=== PATIENT | male | born 1955 | race Caucasian/White ===

== ENCOUNTER 2021-01-14 15:07 | Outpatient (REF) | payer OTHER, SELFPAY ==
--- NOTE | ~2021-01-14 | XR_ITS ---
EXAMINATION: XR KNEE, RIGHT CLINICAL INFORMATION: Evaluate for degenerative disc changes. COMPARISON: None. TECHNIQUE: 4 views of the right knee. FINDINGS: There is minimal loss of medial and patellofemoral femoral compartment joint space with tiny spurring along medial tibial plateau. No abnormal joint effusion seen. No bony erosive changes. No fracture noted. XR/XR knee RT 4V IMPRESSION: Early mild degenerative changes in the patellofemoral and medial compartment.
== END 2021-01-14 15:08 | disposition home or self-care (01) ==
LOC: HO.XRAY 15:07
PROVIDERS: Visit Provider Physical Medicine & Rehabilitation
DX: M25.561 Pain in right knee (principal)
CPT/HCPCS: 73564

== ENCOUNTER 2021-07-18 18:05 | Emergency (ER) | payer OTHER, SELFPAY ==
--- NOTE | ~2021-07-18 | US_ITS ---
EXAMINATION: US VENOUS ULTRASOUND WITH DOPPLER LOWER EXTREMITY, RIGHT CLINICAL INFORMATION: This is a 65-year-old male with right hip pain. Possible deep vein thrombosis. COMPARISON: None TECHNIQUE: Ultrasound of the deep veins is performed from the hip to the calf with compression sonography and color and pulse Doppler assessment. Spectral analysis with color-flow imaging is performed. FINDINGS: There is normal venous compression and respiratory variation and augmented flow. The visualized common femoral vein, superficial femoral vein, profunda femoral vein, popliteal vein, and the trifurcation region shows no evidence of deep venous thrombosis. There is no significant popliteal fossa cyst. If the patient's symptoms persist, followup ultrasound in 5 days 7 days might be of value to exclude proximal propagation from a non-visualized calf vein. US/US venous duplex LE RT IMPRESSION: No DVT demonstrated in the right lower extremity.
[2021-07-18 18:26] VITALS: BP 115/68; PULSE 75; RESP 18; TEMP 37; O2SAT 95; BMI 27.3
--- NOTE | 2021-07-18 22:08 | ED.LOWEXIN ---
HPI - Extremity Injury (Lower) General Chief Complaint: Extremity Injury, Lower Stated Complaint: r/o bloodclot Time Seen by Provider: 07/18/21 21:50 Source: patient Mode of arrival: ambulatory Limitations: no limitations History of Present Illness HPI Narrative: 65-year-old male who presents emergency department for evaluation of right lower extremity pain, swelling and redness. The patient states that he has a history joint swelling in his hands and knees. He states that he was taking Celebrex for this condition but had to stop the Celebrex for 1 week since he was diagnosed with anemia. States that he is being evaluated by the [facility] for possible autoimmune disease as the cause of his anemia, he states that the anemia is not secondary to iron deficiency. Patient states that over the past 4 days he has developed pain in the pretibial region of his right leg. He has noticed redness, tenderness and swelling of his right leg. The symptoms are and the distal 3rd of the right leg, he denied any swelling of the calf. He states that it is painful to walk. Has no pain or swelling of his foot or toes. The patient denied fever, chills, chest pain, shortness of breath, dyspnea on exertion. He states that he does have fatigue. The patient did have a telemedicine consult with his provider at the [facility] and was advised to go to the emergency department for evaluation of possible blood clot to his leg. 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 Past surgical history: None. Social history: He denies tobacco use. Denies alcohol use. He smokes marijuana daily. Medical History Anemia Arthritis Social History Social History Advance Directives: No Advance Directives Information Provided: No Physical Exam Vital Signs: Vital Signs: Last Vital Signs Temp 98.6 F 07/18/21 18:26 Pulse 75 07/18/21 18:26 Resp 18 07/18/21 18:26 BP 115/68 07/18/21 18:26 Pulse Ox 95 07/18/21 18:26 Body Mass Index 27.3 Const: General: cooperative and no acute distress Orientation/consciousness: oriented to person and oriented to place Limitations: no limitations HENMT: Head: Yes normal to inspection, Yes normocephalic and Yes atraumatic Ears: external ears normal General nose exam: Normal external nose present Face and sinus: Yes normal facial exam Mouth: Normal oral and palatal mucosa present Throat: Yes posterior oropharynx normal Eyes: General: appearance normal, both eyes and all related structures Pupils: Equal, round and reactive pupils present Neck: Neck: Yes normal visual inspection, Yes no lymphadenopathy, Yes trachea midline and Yes supple Chest: Chest palpation & inspection: normal inspection of the chest and normal palpation of entire chest wall Resp: Effort & Inspection: normal respiratory effort and able to speak in complete sentences Auscultation: clear to auscultation bilaterally Cardio: Rate: regular rate Rhythm: regular rhythm Heart sounds: S1 normal heart sound present, S2 normal heart sound present and no murmurs GI: Inspection: Yes normal to inspection Palpation (GI): Soft to palpation, nontender and no guarding Auscultation: normal bowel sounds : General: Yes no CVA tenderness Back/Spine/Pelvis: Back: no CVA tenderness Skin: General skin exam: no rashes or lesions noted Neuro: General: oriented to person and oriented to place Cranial nerves: Yes CN's II-XII intact bilaterally and Yes Equal, round and reactive pupils present Cognition (Neuro): normal cognition Motor exam (neuro): 5/5 motor strength present throughout Extrem: Other: Right lower extremity examination: The patient has a erythema from the ankle extending proximally approximately 15 cm. The erythema spares the foot. This area of erythema is warm to the touch and tender to palpation, he also has tenderness palpation of the ankle no joint effusion. There is no tenderness palpation of the foot. Does have tenderness palpation of the knee with no joint effusion or erythema pain Psych: Appearance: grossly normal Speech and movement: Normal speech and movement present Affect: normal affect Attitude: cooperative Thought process: Normal thought process present Thought content: Normal thought content present Course Course Course Narrative: 65-year-old male who presents emergency department for evaluation of erythema and redness of the right lower extremity from the ankle traveling approximately 10 cm proximally, spares the foot and the knee. This erythema is warm to the touch. The patient has no asymmetry of his cast her thighs. The patient was referred to the emergency department for to rule out DVT therefore an ultrasound of the right lower extremity was ordered. 2303: The patient's Doppler ultrasound revealed no DVT, the patient's presentation is consistent with cellulitis. The patient was treated in the emergency department with Keflex 500 mg orally. He was started on Keflex 500 mg 4 times a day for 7 days. The patient was discharged home. The patient was given verbal and printed instructions prior to discharge. The patient was advised to follow-up with his PCP in 2 days and to return to the emergency department if his symptoms get worse or if he develops any new symptoms that are concerning to him. Discharge Plan Discharge Clinical Impression: Cellulitis of right leg without foot Patient Disposition: Home, Self-Care Instructions: Cellulitis (ED) Additional Instructions: The Doppler ultrasound of your right leg revealed no blood clot. This is reassuring. Sometimes an ultrasound can miss a blood clot from the knee down, if you get increased swelling of your leg or thigh or if you develop chest pain or shortness of breath then you need to return to the emergency department for a repeat ultrasound. The redness and swelling your leg is most likely caused by a skin infection (cellulitis). Keep your leg elevated, apply a heating pad on low for 15 minutes 4 to 6 times a day. This will increase the blood flow to the area and help fight often infection. You received Keflex (cephalexin) 500 mg orally. This is an antibiotic that fight skin infections. Take Keflex 500 mg 4 times a day for 7 days. Restart your Celebrex for your pain. Follow-up with your doctor in 2 days. Please return to the emergency department if your symptoms get worse or if you develop any symptoms that are concerning to you. Try contacting a doctor the comes to [facility] on the list and also try contacting our geriatric social work professor to try to get a doctor to follow up with and help you figure out your insurance issue. Prescriptions: New cephalexin 500 mg capsule 500 mg PO QID 7 Days Qty: 28 RF: 0
[2021-07-18] MEDS: cephALEXin 500 MG CAPSULE PO (23:16)
== END 2021-07-18 23:26 | disposition home or self-care (01) ==
PROVIDERS: Emergency Provider Emergency Medicine Emergency Medical Services
DX: L03.115 Cellulitis of right lower limb (principal); M79.604 Pain in right leg; R60.0 Localized edema; Z79.899 Other long term (current) drug therapy
CPT/HCPCS: 93971; 99283; 99284

== ENCOUNTER 2021-08-10 09:08 | Outpatient (REF) | payer OTHER, SELFPAY ==
--- NOTE | ~2021-08-10 | XR_ITS ---
EXAMINATION: XR HAND, RIGHT CLINICAL INFORMATION: Pain first and second digit COMPARISON: None TECHNIQUE: PA, lateral, and oblique views of the right hand. FINDINGS: Bone alignment is normal. No fracture or dislocation is seen. There are small osteophytes at the first through fourth MCP joints. Joint spaces are otherwise normal. Soft tissues are normal. XR/XR hand RT 2V IMPRESSION: Mild degenerative changes at the MCP joints.
[2021-08-10 09:28] LABS: MANUAL DIFF FLAG NO
[2021-08-10 09:51] LABS: Basophils Percent Auto 0.4 % (0-2); Eosinophils Absolute Auto 0.1 X10*3/uL (0.0-0.4); Hematocrit 36.7 % (42-52); Imm Gran Abs Auto 0.01 X10*3/uL (0.00-0.03); Imm Gran Pct Auto 0.2 % (0.0-0.4); Immature Retic Fraction 4.2 % (2.3-13.4); Lymphocytes Absolute Auto 0.7 X10*3/uL (1.2-4.9); Lymphocytes Percent Auto 15.1 % (20-40); Mean Corpuscular HGB Conc 35.4 g/dl (31.0-36.0); Mean Corpuscular Hemoglobin 31.2 pg (27.0-33.0); Mean Platelet Volume 10.8 fL (9.4-12.4); Monocytes Absolute Auto 0.4 X10*3/uL (0.1-1.2); Monocytes Percent Auto 8.4 % (2-11); Neutrophils Absolute Auto 3.7 X10*3/uL (2.0-8.3); Neutrophils Percent Auto 74.9 % (45-73); Platelet Count 185 X10*3/uL (160-400); Red Blood Count 4.17 X10*6/uL (4.60-5.80); Red Cell Distribution Width 12.5 % (11.0-16.0); Retic HGB Equivalent 35.7 pg (30.0-35.0); Reticulocyte Percent 0.8 % (0.5-1.8); Reticulocytes Absolute 0.035 X10*6/uL (0.026-0.095); White Blood Count 4.9 X10*3/uL (4.8-10.8)
[2021-08-10 11:04] LABS: Prostate Specific Antigen Scr 3.18 ng/mL (<0.05-4.0)
[2021-08-10 11:05] LABS: Erythrocyte Sedimentation Rate 18 MM/HR (0-15)
[2021-08-10 11:14] LABS: Alanine Aminotransferase 37 U/L (0-40); Albumin Level 4.2 g/dL (3.5-5.0); Alkaline Phosphatase 98 U/L (39-117); Anion Gap 12 (12-20); Aspartate Amino Transferase 30 U/L (5-37); Bilirubin Total 0.4 mg/dL (0.0-1.0); Blood Urea Nitrogen 22 mg/dL (9-16); C Reactive Protein 0.75 mg/dL (< or = 0.50); Carbon Dioxide 26 mmol/L (22-29); Chloride 107 mmol/L (96-108); Cholesterol 195 mg/dL; Estimated Glomerular Filt Rate > 60; Ferritin 177 ng/mL (20-250); Glucose Fasting 110 mg/dL (60-99); HDL Cholesterol 53 mg/dL; Iron 58 mcg/dL (45-160); LDL Cholesterol Calculated 132 mg/dl; Percent Iron Saturation 17 % (15-50); Potassium 4.5 mmol/L (3.3-5.1); Sodium 140 mmol/L (135-145); TSH reflex Free T4 0.43 uIU/mL (0.32-4.0); Total Iron Binding Capacity 336 mcg/dL (228-428); Total Protein 6.7 g/dL (6.5-8.0); Triglycerides 53 mg/dL; Unsaturated Iron Binding 278 ug/dL
[2021-08-10 11:45] LABS: Rheumatoid Factor < 15.0 IU/mL (<15.0)
[2021-08-12 08:44] LABS: Folate 16.5 ng/mL (> or = 4.0); Vitamin B12 619 pg/mL (200-900)
[2021-08-12 14:07] LABS: Antibody to SS-A Antigen <1.0 NEG AI (<1.0 NEG); Antibody to SS-B Antigen <1.0 NEG AI (<1.0 NEG); Cyclic Citrullinated Peptide <16 UNITS
[2021-08-12 15:31] LABS: Lyme Abs Screen <0.90 index
[2021-08-12 18:07] LABS: Anti Nuclear Antibody Screen NEGATIVE (NEGATIVE)
== END 2021-08-10 09:09 | disposition home or self-care (01) ==
LOC: HO.LAB 09:08
PROVIDERS: PCP Nurse Practitioner Family; Visit Provider Nurse Practitioner Family
DX: D64.9 Anemia, unspecified (principal); M79.10 Myalgia, unspecified site; M79.89 Other specified soft tissue disorders; L03.90 Cellulitis, unspecified; Z12.5 Encounter for screening for malignant neoplasm of prostate
CPT/HCPCS: 36415; 73120; 80053; 80061; 82550; 82607; 82728; 82746; 83540; 84153; 84443; 85025; 85045; 85652; 86038; 86039; 86140; 86200; 86235; 86431; 86617; 86618

== ENCOUNTER 2021-08-12 08:49 | Outpatient (REF) | payer OTHER, SELFPAY ==
[2021-08-12 09:00] LABS: Appearance Urine CLEAR; Color Urine YELLOW; Glucose Urine UA NEG (NEG); Leukocyte Esterase Urine NEG (NEG); Nitrite Urine NEG (NEG); Specific Gravity - Urine 1.025 (1.005-1.025); Urine Blood NEG (NEG); Urine Ketones NEG (NEG); Urine Protein NEG (NEG-TRACE)
== END 2021-08-12 08:50 | disposition home or self-care (01) ==
LOC: HO.LNP 08:49
PROVIDERS: Visit Provider Nurse Practitioner Family
DX: L03.90 Cellulitis, unspecified (principal)
CPT/HCPCS: 81003

== ENCOUNTER 2021-09-16 13:01 | Outpatient (REF) | payer OTHER, SELFPAY ==
[2021-09-16 13:16] LABS: MANUAL DIFF FLAG NO
[2021-09-16 13:55] LABS: Basophils Percent Auto 0.5 % (0-2); Eosinophils Percent Auto 0.3 % (0-4); Hematocrit 39.4 % (42.0-52.0); Hemoglobin 13.6 g/dl (14.0-18.0); Imm Gran Abs Auto 0.02 X10*3/uL (0.00-0.03); Imm Gran Pct Auto 0.3 % (0.0-0.4); Immature Retic Fraction 4.2 % (2.3-13.4); Lymphocytes Absolute Auto 0.9 X10*3/uL (1.2-4.9); Lymphocytes Percent Auto 14.2 % (20-40); Mean Corpuscular HGB Conc 34.5 g/dl (31.0-36.0); Mean Corpuscular Hemoglobin 30.6 pg (27.0-33.0); Mean Corpuscular Volume 88.7 fL (80.0-98.0); Mean Platelet Volume 11.1 fL (9.4-12.4); Monocytes Absolute Auto 0.6 X10*3/uL (0.1-1.2); Monocytes Percent Auto 8.5 % (2-11); Neutrophils Absolute Auto 4.9 x10*3/uL (2.0-8.3); Neutrophils Percent Auto 76.2 % (45-73); Platelet Count 217 X10*3/uL (160-400); Red Blood Count 4.44 X10*6/uL (4.60-5.80); Red Cell Distribution Width 12.5 % (11.0-16.0); Retic HGB Equivalent 34.8 pg (30.0-35.0); Reticulocyte Percent 1.2 % (0.5-1.8); Reticulocytes Absolute 0.052 X10*6/uL (0.026-0.095); White Blood Count 6.5 X10*3/uL (4.8-10.8)
[2021-09-16 14:03] LABS: Estimated Average Glucose 105 mg/dL; Hemoglobin A1c % 5.3 %
[2021-09-16 14:19] LABS: C Reactive Protein 0.51 mg/dL (< or = 0.50)
[2021-09-16 14:34] LABS: Erythrocyte Sedimentation Rate 19 MM/HR (0-15)
== END 2021-09-16 13:02 | disposition home or self-care (01) ==
LOC: HO.LAB 13:01
PROVIDERS: PCP Nurse Practitioner Family; Visit Provider Nurse Practitioner Family
DX: D64.9 Anemia, unspecified (principal); R73.01 Impaired fasting glucose
CPT/HCPCS: 36415; 82550; 83036; 85025; 85045; 85652; 86140

== ENCOUNTER 2021-09-17 12:54 | Outpatient (REF) | payer OTHER, SELFPAY ==
--- NOTE | ~2021-09-17 | XR_ITS ---
EXAMINATION: XR KNEE, RIGHT CLINICAL INFORMATION: Pain in the right knee. COMPARISON: Right knee 01/14/2021 TECHNIQUE: Four views of the right knee. FINDINGS: There is mild joint space narrowing medial femoral tibial joint. The lateral femoral tibial joint is normal. Slight narrowing of the patellofemoral joint. Minimal bone spur of the tibia at the articular margin of the medial femoral tibial joint. No bone erosion. No soft tissue calcification. Compared to the prior radiograph of 01/14/2021 there has not been substantial change XR/XR knee RT 4V IMPRESSION: Minor degenerative change of the medial femoral tibial joint and patellofemoral joint. No change since prior study 01/14/2021.
== END 2021-09-17 12:55 | disposition home or self-care (01) ==
LOC: HO.XRAY 12:54
PROVIDERS: PCP Nurse Practitioner Family; Visit Provider Nurse Practitioner Family
DX: M25.561 Pain in right knee (principal)
CPT/HCPCS: 73564

== ENCOUNTER 2021-10-10 09:47 | Outpatient (REF) | payer OTHER, SELFPAY ==
--- NOTE | 2021-10-10 09:49 | EMG_ITS ---
Right tibial and peroneal motor studies were performed. Right superficial peroneal and sural studies were performed and needle examination was done for EMG. IMPRESSION: Acute on chronic right lower lumbar radiculopathy. MD ALICIA Alonso/ROB / [id number]
== END 2021-10-10 09:48 | disposition home or self-care (01) ==
LOC: HO.NEURO 09:47
PROVIDERS: PCP Nurse Practitioner Family; Visit Provider Nurse Practitioner Family
DX: M62.838 Other muscle spasm (principal)
CPT/HCPCS: 95886; 95908

== ENCOUNTER 2021-10-21 12:19 | Outpatient (REF) | payer OTHER, SELFPAY ==
--- NOTE | ~2021-10-21 | XR_ITS ---
EXAMINATION: XR HAND, RIGHT CLINICAL INFORMATION: Right finger pain. COMPARISON: 06/10/2021 TECHNIQUE: PA, lateral, and oblique views of the right hand. FINDINGS: Prominent marginal osteophytes are evident at the MCP joints with mild non-uniform joint space narrowing. No erosions. Bone mineralization is normal. A few small marginal osteophytes are present in the interphalangeal joints, the joint spaces are well preserved. Carpal joints appear well preserved. No periostitis or soft tissue calcifications. Soft tissues are unremarkable. XR/XR hand RT min 3V IMPRESSION: Mild multifocal osteoarthritis in the hand, most notably at the MCP joints, unchanged. No acute osseous findings.
== END 2021-10-21 12:20 | disposition home or self-care (01) ==
LOC: HO.HMGCX 12:19
PROVIDERS: PCP Nurse Practitioner Family; Visit Provider Nurse Practitioner Family
DX: M79.644 Pain in right finger(s) (principal)
CPT/HCPCS: 73130

== ENCOUNTER 2022-01-31 14:43 | Outpatient (REF) | payer OTHER, SELFPAY ==
--- NOTE | ~2022-01-31 | CT_ITS ---
CT LUMBAR SPINE WITHOUT CONTRAST CLINICAL INFORMATION: Chronic right lower radiculopathy. COMPARISON: None available. TECHNIQUE: Multidetector CT acquisition of the lumbar spine is obtained without contrast. This CT examination was performed using dose optimization techniques as appropriate, variously including the following: *Automated exposure control *Adjustment of mA and/or kV according to patient size (this includes techniques or standardized protocols for targeted exams where dose is matched to indication/reason for exam; i.e. extremities or head) *Use of iterative reconstruction technique FINDINGS: There are 5 nonrib-bearing lumbar-type vertebral bodies. Lumbar alignment is normal. There are no acute fractures and there are no acute subluxations. Large anterior right-sided bridging osteophyte at L5-S1 and smaller endplate osteophytes throughout the remainder of the lumbar spine. No suspicious intraosseous lesions. Vacuum phenomenon within the SI joints bilaterally. Right renal cyst. Bilateral perinephric stranding. Punctate nonobstructing calculus within the right kidney. L1-L2: Small annular disc bulge. Mild bilateral facet arthropathy. No appreciable central canal stenosis. Mild foraminal encroachment bilaterally. L2-L3: Diffuse annular disc bulge and bilateral facet arthropathy. No appreciable central canal stenosis. There is mild foraminal encroachment bilaterally. L3-L4: There is a diffuse annular disc bulge and there is moderate bilateral facet arthropathy and ligamentum flavum thickening. Findings in concert result in suspected moderate central canal stenosis, bilateral subarticular zone stenosis with possible mass effect on the traversing L4 nerve roots bilaterally, and mild bilateral foraminal encroachment. L4-L5: Diffuse annular disc bulge and bilateral facet arthropathy and ligamentum flavum thickening. Findings in concert result in suspected moderate to severe central canal stenosis, bilateral subarticular zone stenosis with mass effect on the traversing L5 nerve roots bilaterally, as well as moderate right and mild to moderate left foraminal stenosis with mass effect on the exiting right L4 nerve root. L5-S1: Diffuse disc osteophyte complex and bilateral hypertrophic facet arthropathy. There is no central canal stenosis. Severe bilateral foraminal stenosis with compression of the exiting L5 nerve roots bilaterally. CT/CT lumbar spine wo con IMPRESSION: - At L5-S1, multifactorial degenerative changes result in severe bilateral foraminal stenosis with compression of the exiting L5 nerve roots bilaterally. - At L4-L5, multifactorial degenerative changes result in suspected moderate to severe central canal stenosis, bilateral subarticular zone stenosis with mass effect on the traversing L5 nerve roots bilaterally, as well as moderate right and mild to moderate left foraminal stenosis with mass effect on the exiting right L4 nerve root. - At L3-L4, multifactorial degenerative changes result in suspected moderate central canal stenosis, bilateral subarticular zone stenosis with possible mass effect on the traversing L4 nerve roots bilaterally, and mild bilateral foraminal encroachment.
== END 2022-01-31 14:44 | disposition home or self-care (01) ==
LOC: HO.CT 14:43
PROVIDERS: Visit Provider Nurse Practitioner Family
DX: M62.89 Other specified disorders of muscle (principal); R94.131 Abnormal electromyogram [EMG]
CPT/HCPCS: 72131

== ENCOUNTER 2022-09-24 08:04 | Outpatient (REF) | payer OTHER, SELFPAY ==
[2022-09-24 08:22] LABS: MANUAL DIFF FLAG NO
[2022-09-24 08:39] LABS: Basophils Percent Auto 0.6 % (0-2); Eosinophils Absolute Auto 0.1 X10*3/uL (0.0-0.4); Eosinophils Percent Auto 1.4 % (0-4); Hematocrit 37.4 % (42.0-52.0); Hemoglobin 12.8 g/dl (14.0-18.0); Imm Gran Abs Auto 0.01 X10*3/uL (0.00-0.03); Imm Gran Pct Auto 0.3 % (0.0-0.4); Lymphocytes Absolute Auto 0.9 X10*3/uL (1.2-4.9); Lymphocytes Percent Auto 24.6 % (20-40); Mean Corpuscular HGB Conc 34.2 g/dl (31.0-36.0); Mean Corpuscular Hemoglobin 30.6 pg (27.0-33.0); Mean Corpuscular Volume 89.5 fL (80.0-98.0); Mean Platelet Volume 10.3 fL (9.4-12.4); Monocytes Absolute Auto 0.4 X10*3/uL (0.1-1.2); Monocytes Percent Auto 10.2 % (2-11); Neutrophils Absolute Auto 2.2 x10*3/uL (2.0-8.3); Neutrophils Percent Auto 62.9 % (45-73); Platelet Count 191 X10*3/uL (160-400); Red Blood Count 4.18 X10*6/uL (4.60-5.80); Red Cell Distribution Width 12.4 % (11.0-16.0); White Blood Count 3.5 X10*3/uL (4.8-10.8)
[2022-09-24 09:24] LABS: Erythrocyte Sedimentation Rate 18 MM/HR (0-15)
[2022-09-24 10:00] LABS: Alanine Aminotransferase 34 U/L (0-40); Albumin Level 4.1 g/dL (3.5-5.0); Alkaline Phosphatase 90 U/L (39-117); Anion Gap 11 (12-20); Aspartate Amino Transferase 30 U/L (5-37); Bilirubin Total 0.6 mg/dL (0.0-1.0); Blood Urea Nitrogen 25 mg/dL (9-16); C Reactive Protein 0.43 mg/dL (< or = 0.50); Calcium 9.3 mg/dL (8.4-10.2); Carbon Dioxide 28 mmol/L (22-29); Chloride 106 mmol/L (96-108); Cholesterol 181 mg/dL; Estimated Glomerular Filt Rate > 60; Ferritin 222 ng/mL (20-250); Glucose Fasting 111 mg/dL (60-99); HDL Cholesterol 52 mg/dL; Iron 89 mcg/dL (45-160); LDL Cholesterol Calculated 116 mg/dl; Percent Iron Saturation 29 % (15-50); Potassium 4.4 mmol/L (3.3-5.1); Prostate Specific Antigen Scr 2.84 ng/mL (<0.05-4.0); Sodium 141 mmol/L (135-145); Total Iron Binding Capacity 302 mcg/dL (228-428); Total Protein 6.6 g/dL (6.5-8.0); Triglycerides 66 mg/dL; Unsaturated Iron Binding 213 ug/dL
[2022-09-24 10:12] LABS: Vitamin B12 525 pg/mL (200-900)
[2022-09-24 16:21] LABS: Appearance Urine Clear; Color Urine Dark Yellow; Glucose Urine UA Negative (Negative); Leukocyte Esterase Urine Negative (Negative); Nitrite Urine Negative (Negative); PH 5.5 (5.0-9.0); Specific Gravity - Urine >= 1.030 (1.005-1.025); Urine Blood Negative (Negative); Urine Ketones Trace mg/dL (Negative); Urine Protein Trace mg/dL (Neg-Trace)
[2022-09-27 07:33] LABS: Antibody to SS-A Antigen <1.0 NEG AI (<1.0 NEG); Antibody to SS-B Antigen <1.0 NEG AI (<1.0 NEG); Scleroderma 70 Antibody <1.0 NEG AI (<1.0 NEG)
[2022-09-27 22:07] LABS: A. Phagocytphilium DNA,RT-PCR NOT DETECTED (NOT DETECTED); Babesia Microti DNA, RT-PCR NOT DETECTED (NOT DETECTED); Borrelia Miyamotoi,DNA RT-PCR NOT DETECTED (NOT DETECTED); E.Chaffeensis DNA RT-PCR NOT DETECTED (NOT DETECTED); Lyme(Borrelia ssp)DNA RT-PCR NOT DETECTED (NOT DETECTED)
[2022-09-29 12:46] LABS: Anti Nuclear Antibody Screen NEGATIVE (NEGATIVE)
[2022-09-30 09:10] LABS: Source-Tick borne disease BLOOD
[2022-09-30 15:56] LABS: DNAds, Crithidia Antibody Negative (Negative)
[2022-10-01 09:08] LABS: HLA B27 Negative (Negative)
== END 2022-09-24 08:05 | disposition home or self-care (01) ==
LOC: HO.LAB 08:04
PROVIDERS: PCP Nurse Practitioner Family; Visit Provider Nurse Practitioner Family
DX: Z00.00 Encounter for general adult medical examination without abnormal findings (principal); Z12.5 Encounter for screening for malignant neoplasm of prostate; R23.9 Unspecified skin changes
CPT/HCPCS: 36415; 80053; 80061; 81003; 82607; 82728; 82746; 83540; 84153; 84443; 85025; 85652; 86038; 86039; 86140; 86235; 86255; 86812; 87798; 87801

== ENCOUNTER 2023-03-07 09:07 | Outpatient (REF) | payer OTHER, SELFPAY ==
[2023-03-07 09:18] LABS: MANUAL DIFF FLAG NO
[2023-03-07 10:11] LABS: Alanine Aminotransferase 30 U/L (0-40); Albumin Level 4.1 g/dL (3.5-5.0); Alkaline Phosphatase 83 U/L (39-117); Anion Gap 10 (12-20); Aspartate Amino Transferase 27 U/L (5-37); Bilirubin Total 0.8 mg/dL (0.0-1.0); Blood Urea Nitrogen 18 mg/dL (9-16); Calcium 9.1 mg/dL (8.4-10.2); Carbon Dioxide 28 mmol/L (22-29); Chloride 107 mmol/L (96-108); Cholesterol 203 mg/dL; Estimated Glomerular Filt Rate > 60; Glucose Fasting 102 mg/dL (60-99); HDL Cholesterol 55 mg/dL; Iron 108 mcg/dL (45-160); LDL Cholesterol Calculated 138 mg/dl; Percent Iron Saturation 36 % (15-50); Potassium 4.2 mmol/L (3.3-5.1); Sodium 141 mmol/L (135-145); Total Iron Binding Capacity 301 mcg/dL (228-428); Total Protein 6.3 g/dL (6.5-8.0); Triglycerides 53 mg/dL; Unsaturated Iron Binding 193 ug/dL
[2023-03-07 10:19] LABS: Basophils Percent Auto 0.5 % (0-2); Eosinophils Absolute Auto 0.1 X10*3/uL (0.0-0.4); Eosinophils Percent Auto 1.6 % (0-4); Hematocrit 37.8 % (42.0-52.0); Imm Gran Abs Auto 0.01 X10*3/uL (0.00-0.03); Imm Gran Pct Auto 0.3 % (0.0-0.4); Lymphocytes Percent Auto 26.2 % (20-40); Mean Corpuscular HGB Conc 34.4 g/dl (31.0-36.0); Mean Corpuscular Hemoglobin 30.9 pg (27.0-33.0); Mean Corpuscular Volume 89.8 fL (80.0-98.0); Monocytes Absolute Auto 0.4 X10*3/uL (0.1-1.2); Monocytes Percent Auto 11.3 % (2-11); Neutrophils Absolute Auto 2.3 x10*3/uL (2.0-8.3); Neutrophils Percent Auto 60.1 % (45-73); Platelet Count 173 X10*3/uL (160-400); Red Blood Count 4.21 X10*6/uL (4.60-5.80); Red Cell Distribution Width 12.5 % (11.0-16.0); White Blood Count 3.8 X10*3/uL (4.8-10.8)
[2023-03-07 10:42] LABS: Ferritin 191 ng/mL (20-250); Folate 9.4 ng/mL (> or = 4.0); Vitamin B12 528 pg/mL (200-900)
== END 2023-03-07 09:08 | disposition home or self-care (01) ==
LOC: HO.LAB 09:07
PROVIDERS: PCP Nurse Practitioner Family; Visit Provider Nurse Practitioner Family
DX: D64.9 Anemia, unspecified (principal); F33.9 Major depressive disorder, recurrent, unspecified; E78.5 Hyperlipidemia, unspecified
CPT/HCPCS: 36415; 80053; 80061; 82607; 82728; 82746; 83540; 84443; 85025

== ENCOUNTER 2023-03-08 08:55 | Outpatient (REF) | payer OTHER, SELFPAY ==
[2023-03-08 09:00] LABS: Appearance Urine Clear; Color Urine Yellow; Glucose Urine UA Negative (Negative); Leukocyte Esterase Urine Negative (Negative); Nitrite Urine Negative (Negative); PH 6.5 (5.0-9.0); Urine Blood Negative (Negative); Urine Ketones Negative (Negative); Urine Protein Negative (Neg-Trace)
== END 2023-03-08 08:56 | disposition home or self-care (01) ==
LOC: HO.LNP 08:55
PROVIDERS: Visit Provider Nurse Practitioner Family
DX: F33.9 Major depressive disorder, recurrent, unspecified (principal); D64.9 Anemia, unspecified
CPT/HCPCS: 81003

== ENCOUNTER 2023-03-18 10:51 | Outpatient (REF) | payer OTHER, SELFPAY ==
[2023-03-18 11:22] LABS: FIT Int Ctl YES; FIT1 NEGATIVE (NEGATIVE); FIT2 NEGATIVE (NEGATIVE)
== END 2023-03-18 10:52 | disposition home or self-care (01) ==
LOC: HO.LNP 10:51
PROVIDERS: Visit Provider Nurse Practitioner Family
DX: D64.9 Anemia, unspecified (principal)
CPT/HCPCS: 82274

== ENCOUNTER → 2023-03-27 13:42 | Outpatient (BNV) | payer BC, OTHER, SELFPAY | PROVIDERS: PCP Nurse Practitioner Family; Visit Provider Internal Medicine Medical Oncology | DX: D72.819 Decreased white blood cell count, unspecified (principal); R23.3 Spontaneous ecchymoses | CPT/HCPCS: 99204; 99213 ==

== ENCOUNTER 2023-08-11 14:46 | Outpatient (REF) | payer OTHER, SELFPAY ==
[2023-08-13 13:03] LABS: SM/Ribonucleoprotein Ab <1.0 NEG AI (<1.0 NEG); Smith Protein <1.0 NEG AI (<1.0 NEG)
[2023-08-20 15:29] LABS: Centromere Protein A Ab <11 SI (<11); Centromere Protein B Ab <11 SI (<11); Fibrillarin Ab <11 SI (<11); PM SCL 100 Ab <11 SI (<11); PM SCL 75 Ab <11 SI (<11); RNA Polymerase III RP11 Ab <11 SI (<11); RNA Polymerase III RP155 Ab 37 SI (<11); SCL-70 Extractable Nuclear Ab <11 SI (<11); Th-To Ab <11 SI (<11); U1 SNRNP RNP 70KD <11 SI (<11); U1 SNRNP RNP A <11 SI (<11); U1 SNRNP RNP C <11 SI (<11)
== END 2023-08-11 14:47 | disposition home or self-care (01) ==
LOC: HO.LAB 14:46
PROVIDERS: PCP Nurse Practitioner Family; Visit Provider Student in an Organized Health Care Education/Training Program
DX: M25.50 Pain in unspecified joint (principal); M15.9 Polyosteoarthritis, unspecified; I73.00 Raynaud's syndrome without gangrene; M34.9 Systemic sclerosis, unspecified
CPT/HCPCS: 36415; 84182; 86235

== ENCOUNTER 2023-08-11 14:46 | Outpatient (AMB) | payer OTHER, SELFPAY ==
--- NOTE | 2023-08-11 14:55 | MHC.OFFVIS ---
Intake Vital Signs 08/11/23 14:56 Height 5 ft 7 in Weight 168 lb 6.931 oz BMI 26.4 BP 122/80 Blood Pressure Location Rt brachial Position Sitting Pulse 71 Pulse Source Pulse Oximeter Temp 98.1 F Temp Source Skin Pulse Oximetry (%) 96 Intake Visit Reasons: Joint Pain Intake Note: New pt presents today for joint pain consult. Previously seen at [facility] in [place]. Power Manager Required: No Accompanied by: Self / Same As Patient Allergies No Known Allergies [No Known Allergies*] Allergy (Verified 08/11/23 14:57) Medication List - Last Reconciled 08/11/23 by Francisco Samuels MD triazolam 0.25 mg PO BEDTIME PRN HPI HPI Comments History of Present Illness Details This is a 67-year-old male who presents for evaluation of multiple joint pain. Patient states that he has had Raynaud's since his teens. His fingers change color to white blue and red. Denies ever having digital tip ulcers. States that over the last 1-2 years he has been having progressive joint pain especially in both thumbs, states that his fingers are swollen, ring on left ring finger is tight. She also states that he has bilateral hip pain as well as bilateral knee pain. Two years ago he had an EMG/NCV is no extremity showing acute on chronic her radiculopathy. 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 He is walking the hallways throughout the day. States that the majority of his pain in his legs and usually worse towards the end of the day. He has bilateral a pain that is worse in the morning and when standing up after sitting down. States that he does karate twice a week. States that he has history of depression for years but has become worse. Believes that his symptoms started a few months after COVID infection 1 year and half ago. He was evaluated by a satellite manager at the [facility], Dr. Atkinson with diagnosed him with osteoarthritis and he received a steroid injection in his right thumb which provided 1-2 months relief [facility] Medical History (Updated 08/11/23 @ 15:43 by Francisco Samuels MD) Recurrent major depression resistant to treatment Arthralgia Raynauds disease Anemia Anemia Arthritis Surgical History No history of previous surgery Family History Mother No problems noted. Father No problems noted. Social History Household Members: Spouse Housing: House Patient Tobacco Use Status: Never used Tobacco e-Cigarette/Vaping Use: Never Used Second Hand Smoke Exposure: No service: No Current occupational status: employed Cognitive needs: No Hearing needs: No Vision needs: No Review of Systems Const Reports fatigue Musc Reports arthralgias, Reports joint swelling and Reports stiffness Skin/Breast Reports unusual bruising Psych Reports depression Endo Reports fatigue Physical Exam Vital Signs: Last Vital Signs Temp 98.1 F 08/11/23 14:56 Pulse 71 08/11/23 14:56 BP 122/80 08/11/23 14:56 Pulse Ox 96 08/11/23 14:56 BMI result Body Mass Index 26.4 Const General: cooperative, healthy appearing and comfortable Nutritional Appearance: overweight Orientation/consciousness: patient oriented x3 Limitations: no limitations HEENT Head: Yes normocephalic and Yes atraumatic Mouth: moist mucous membranes Resp Effort & Inspection: normal respiratory effort and able to speak in complete sentences Auscultation: clear to auscultation bilaterally Cardio Rate: regular rate Rhythm: regular rhythm GI Inspection: No distended Palpation (GI): Soft to palpation and nontender Neuro General: patient oriented x3 Extrem Other: Puffiness of both hands but no active synovitis Bilateral 1st CMC squaring Tenderness of the right 1st CMC joint No skin thickening Normal nailfold capillaroscopy Normal range of motion of both hands, elbows, shoulders without pain Assessment & Plan Assessment & Plan (1) Generalized osteoarthritis: Code(s): M15.9 - Polyosteoarthritis, unspecified Plan: This is a 67-year-old male who presents for evaluation of multiple joint pain. He also has history of Raynaud's. Clinical picture rather consistent with generalized osteoarthritis affecting his hands, lower back, knees. I educated patient about this condition and reassured them. We discussed treatment options next visit (2) Raynauds disease: Code(s): I73.00 - Raynaud's syndrome without gangrene Qualifiers: Raynaud?s-associated gangrene presence: without gangrene Qualified Code(s): I73.00 - Raynaud's syndrome without gangrene Plan: Longstanding history of Raynaud's. Mildly puffy fingers on exam. Will check scleroderma antibodies Plan I spent 46 minutes reviewing patient's chart, evaluating patient, ordering diagnostic workup, counseling patient and documenting in the chart Orders: Orders Scleroderma 12 Panel Today M25.50 - Pain in unspecified joint, M34.9 - Systemic sclerosis, unspecified Anti Extractable Nuclear Ag Today M25.50 - Pain in unspecified joint Medications: Changed From triazolam 0.25 mg PO BEDTIME 30 tabs 2RF To triazolam 0.25 mg PO BEDTIME PRN Coding Level of Care Code New Pt Level 4 (00283) Diagnoses Generalized osteoarthritis M15.9 Raynaud's disease without gangrene I73.00 Raynaud?s-associated gangrene presence: without gangrene
[2023-08-11 14:56] VITALS: BP 122/80; PULSE 71; TEMP 36.7; O2SAT 96; BMI 26.4
== END 2023-08-11 15:36 | disposition home or self-care (01) ==
PROVIDERS: PCP Nurse Practitioner Family; Visit Provider Student in an Organized Health Care Education/Training Program
DX: M15.9 Polyosteoarthritis, unspecified (principal); I73.00 Raynaud's syndrome without gangrene
CPT/HCPCS: 99204

== ENCOUNTER 2023-09-11 09:09 | Outpatient (AMB) | payer OTHER, SELFPAY ==
[2023-09-11 09:21] VITALS: BP 116/70; PULSE 55; TEMP 36.7; O2SAT 98; BMI 26.2
--- NOTE | 2023-09-11 09:21 | A.OFFVIS_ITS ---
Intake Vital Signs 09/11/23 09:21 Height 5 ft 7 in Weight 167 lb 1.766 oz BMI 26.2 BP 116/70 Blood Pressure Location Rt brachial Position Sitting Pulse 55 Pulse Source Pulse Oximeter Temp 98.1 F Temp Source Skin Pulse Oximetry (%) 98 Intake Visit Reasons: Raynaud's Intake Note: Pt last seen 08/11/23, presents today for follow up and test results. 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 Continues to feel about the same. Continues to get intermittent spasms of his thighs, worse on the left. Gets knee pain and stiffness, worse with walking. He also gets pain the base of his right thumb, worse with activity Initial history: This is a 67-year-old male who presents for evaluation of multiple joint pain. Patient states that he has had Raynaud's since his teens. His fingers change color to white blue and red. Denies ever having digital tip ulcers. States that over the last 1-2 years he has been having progressive joint pain especially in both thumbs, states that his fingers are swollen, ring on left ring finger is tight. She also states that he has bilateral hip pain as well as bilateral knee pain. Two years ago he had an EMG/NCV is no extremity showing acute on chronic her radiculopathy. 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 He is walking the hallways throughout the day. States that the majority of his pain in his legs and usually worse towards the end of the day. He has bilateral a pain that is worse in the morning and when standing up after sitting down. States that he does karate twice a week. States that he has history of depression for years but has become worse. Believes that his symptoms started a few months after COVID infection 1 year and half ago. He was evaluated by a diesel locomotive firer/fireman at the [facility], Dr. Atkinson with diagnosed him with osteoarthritis and he received a steroid injection in his right thumb which provided 1-2 months relief [facility] Medical History (Updated 09/11/23 @ 10:24 by Francisco Samuels MD) Shortness of breath Recurrent major depression resistant to treatment Arthralgia Raynauds disease Anemia Anemia Arthritis Surgical History No history of previous surgery Family History Mother No problems noted. Father No problems noted. Social History Household Members: Spouse Housing: House Patient Tobacco Use Status: Never used Tobacco e-Cigarette/Vaping Use: Never Used Second Hand Smoke Exposure: No service: No Current occupational status: employed Cognitive needs: No Hearing needs: No Vision needs: No Review of Systems Const Reports fatigue Musc Reports arthralgias and Reports stiffness Skin/Breast Reports unusual bruising Psych Reports depression Endo Reports fatigue Physical Exam Vital Signs: Last Vital Signs Temp 98.1 F 09/11/23 09:21 Pulse 55 09/11/23 09:21 BP 116/70 09/11/23 09:21 Pulse Ox 98 09/11/23 09:21 BMI result Body Mass Index 26.2 Const General: cooperative, healthy appearing and comfortable Nutritional Appearance: overweight Orientation/consciousness: patient oriented x3 Limitations: no limitations HEENT Head: Yes normocephalic and Yes atraumatic Mouth: moist mucous membranes Resp Effort & Inspection: normal respiratory effort and able to speak in complete sentences Auscultation: clear to auscultation bilaterally Cardio Rate: regular rate Rhythm: regular rhythm GI Inspection: No distended Palpation (GI): Soft to palpation and nontender Neuro General: patient oriented x3 Extrem Other: Puffiness of both hands but no active synovitis Bilateral 1st CMC squaring Tenderness of the right 1st CMC joint No skin thickening Normal nailfold capillaroscopy Normal range of motion of both hands, elbows, shoulders without pain Office Procedures Joint Injection/Drain Joint Injection/Drain Primary Site: right knee Prep: site was prepped using sterile technique and ethochloride spray was applied Injected: 40 mg of, Kenalog and other (2 mL of 1% lidocaine) Approach Used: medial parapatellar Procedure: The patient tolerated the procedure well Coding Details: With the patient's consent the right knee was prepped with ChloraPrep and alcohol. The skin was anesthetized with 2 cc of 1% lidocaine. The knee was then injected with 40 mg of triamcinolone and2 cc of I % lidocaine. The patient tolerated the procedure with no immediate adverse effects. - Large joint Procedure code (CPT) selection complete Joint Injection/Drain Joint Injection/Drain Primary Site: right thumb Prep: site was prepped using sterile technique and ethochloride spray was applied Injected: 20 mg of, Kenalog and other (0.1 mL of 1% lidocaine) Approach Used: other Procedure: The patient tolerated the procedure well Coding Details: After prepping the right 1st CMC joint area with ChloraPrep, ethyl chloride spray was used then using a 27 gauge needle 20mg of Kenalog mixed with 0.1 cc of 1% lidocaine was injected into the joint space - Small Joint Procedure code (CPT) selection complete Assessment & Plan Assessment & Plan (1) Raynauds disease: Code(s): I73.00 - Raynaud's syndrome without gangrene Qualifiers: Raynaud?s-associated gangrene presence: without gangrene Qualified Code(s): I73.00 - Raynaud's syndrome without gangrene Plan: This is a 67-year-old male with history of Raynaud's dating back to his 20s who presents for evaluation of generalized fatigue and generalized body aches. Upon evaluation patient has mildly puffy fingers but no skin thickening. His labs showed a positive RNA polymerase 3 antibody. He does not fulfill criteria however for scleroderma. Will check PFTs and 2D echo to screen for ILD and pulmonary hypertension. His Raynaud's symptoms are benign in nature. He does not have prolonged Raynaud's episodes, denies ever having any digital tip ulcers. Advised patient to continue with conservative measures for Raynaud's Patient has arthralgias but they do not seem to be inflammatory in nature. He has lower back pain radiating to his buttocks, thighs and knees which is related to his known lumbar degenerative disc disease. Will prescribe a hydroxychloroquine trial for 3-6 months to see whether it would help with his fatigue. With regards to his malignancy screening. Patient stated that he had at least 2 colonoscopies. Which were unremarkable. He has had normal PSA in the past. He denies any fevers or weight loss. Will check a repeat PSA with next set of labs. (2) Osteoarthritis of first carpometacarpal joint of right hand: Code(s): M18.11 - Unilateral primary osteoarthritis of first carpometacarpal joint, right hand Qualifiers: Osteoarthritis type: primary Qualified Code(s): M18.11 - Unilateral primary osteoarthritis of first carpometacarpal joint, right hand Plan: With patient's consent, right 1st CMC joint was injected with Kenalog today (3) Bilateral primary osteoarthritis of knee: Code(s): M17.0 - Bilateral primary osteoarthritis of knee Plan: With patient consent, right knee was injected with Kenalog today (4) Long-term use of hydroxychloroquine: Code(s): Z79.899 - Other terminal block assembler (current) drug therapy Plan: Discussed risk of retinopathy with hydroxychloroquine. Will refer patient to Op hthalmology Inform patient that hydroxychloroquine has been associated with worsening anxiety/depression. Advised patient to monitor his symptoms. (5) Lumbar spinal stenosis: Code(s): M48.061 - Spinal stenosis, lumbar region without neurogenic claudication Qualifiers: Neurogenic claudication status: unspecified Qualified Code(s): M48.061 - Spinal stenosis, lumbar region without neurogenic claudication Plan: Referred to pain management Plan I spent 60 minutes reviewing patient's chart, evaluating patient, ordering diagnostic workup, counseling patient and documenting in the chart Orders: Orders Complete Blood Count Auto Diff 3 Months Z79.899 - Other prison (current) drug therapy C Reactive Protein 3 Months Z79.899 - Other terminal block assembler (current) drug therapy Erythrocyte Sedimentation Rate 3 Months Z79.899 - Other prison (current) drug therapy AMB Joint Injection/Aspiration Today M18.11 - Unilateral primary osteoarthritis of first carpometacarpal joint, right hand PFT pulmonary function test Today M34.9 - Systemic sclerosis, unspecified, R06.02 - Shortness of breath CA echo transthoracic complete Today M34.9 - Systemic sclerosis, unspecified Comprehensive Met. Panel 3 Months Z79.899 - Other prison (current) drug therapy PSA,Total (Free>4and<10) 3 Months Z12.5 - Encounter for screening for malignant neoplasm of prostate AMB Joint Injection/Aspiration Today M17.0 - Bilateral primary osteoarthritis of knee Referrals Pain Management Referral M48.061 - Spinal stenosis, lumbar region without neurogenic claudication Ophthalmology Referral Z79.899 - Other terminal block assembler (current) drug therapy Medications: New hydroxychloroquine 200 mg PO BID 60 tabs 2RF Coding Level of Care Code Est Pt Level 5 (91894) Diagnoses Raynaud's disease without gangrene I73.00 Raynaud?s-associated gangrene presence: without gangrene Primary osteoarthritis of first carpometacarpal joint of right hand M18.11 Osteoarthritis type: primary Bilateral primary osteoarthritis of knee M17.0 Long-term use of hydroxychloroquine Z79.899 Spinal stenosis of lumbar region, unspecified whether neurogenic claudication present M48.061 Neurogenic claudication status: unspecified CPT Codes Coding - 09163 Large joint: 96600 - Large joint ([id number]) Coding - 48859 - Small joint: 87981 - Small Joint ([id number])
== END 2023-09-11 10:10 | disposition home or self-care (01) ==
PROVIDERS: PCP Nurse Practitioner Family; Visit Provider Student in an Organized Health Care Education/Training Program
DX: I73.00 Raynaud's syndrome without gangrene (principal); M18.11 Unilateral primary osteoarthritis of first carpometacarpal joint, right hand; M17.0 Bilateral primary osteoarthritis of knee; Z79.899 Other long term (current) drug therapy; M48.061 Spinal stenosis, lumbar region without neurogenic claudication
CPT/HCPCS: 20600; 20610; 99215

== ENCOUNTER → 2023-09-11 09:09 | Outpatient (BNVA) | payer OTHER, SELFPAY | PROVIDERS: PCP Nurse Practitioner Family; Visit Provider Student in an Organized Health Care Education/Training Program | DX: I73.00 Raynaud's syndrome without gangrene (principal); M18.11 Unilateral primary osteoarthritis of first carpometacarpal joint, right hand; M17.0 Bilateral primary osteoarthritis of knee; M48.061 Spinal stenosis, lumbar region without neurogenic claudication; Z79.899 Other long term (current) drug therapy | CPT/HCPCS: 20600; 20610 ==

== ENCOUNTER 2023-10-08 10:28 | Outpatient (AMB) | payer OTHER, SELFPAY ==
--- NOTE | 2023-10-08 10:31 | A.OFFVIS_ITS ---
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 Denies any recent or past trauma, injury, or falls. Patient states his chronic pain has been worsening since his last COVID illness as well as effects of Raynaud's disease and polyarthralgia. He also see Rheumatology provider. 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 He has a good day t rhina and rates his pain at 3/10 but on his usual working day his pain is rated at 6-8/10. Pain affects his daily activities, functioning, work, sleep, mood, walking and quality of life. Patient is interested in epidural steroid injection for his radicular symptoms. He denies previous spine surgery or injections. Patient had CT scan of lumbar spine in 2021 which showed at L4-L5, multifactorial degenerative changes result in suspected moderate to severe central canal stenosis, bilateral subarticular zone stenosis with mass effect on the traversing L5 nerve roots bilaterally, as well as moderate right and mild to moderate left foraminal stenosis with mass effect on the exiting right L4 nerve root. Patient cannot undergo MRI due to remaining piece of metal in his left side of neck due to an injury in the past. Patient denies any fever, abdominal or groin pain, weakness, foot drop, bladder or bowel dysfunction, or saddle anesthesia. Location Mid back, radiates bilateral legs in L4-L5 distribution, worse L5 Duration Chronic pain for many years Characteristics of symptom or complaint Aching, tiring, throbbing, exhausting, radiating, numbness Aggravating or associated factors Movements, bending forward, walking, getting up, standing, prolonged sit Relieving factors Tylenol and Naproxen prn, heat therapy Treatment [employer] arts, HEP, walking 10 miles almost daily PENDING SALE TO [facility] Medical History (Updated 10/11/23 @ 21:47 by MARTIR Roman) Shortness of breath Recurrent major depression resistant to treatment Arthralgia Raynauds disease Anemia Anemia Arthritis Surgical History No history of previous surgery Family History Mother No problems noted. Father No problems noted. Social History (Updated 10/08/23 @ 10:37 by Sabi Swann) Household Members: Spouse Housing: House Alcohol intake: current Alcohol intake frequency: holidays/special occasions only Patient Tobacco Use Status: Never used Tobacco e-Cigarette/Vaping Use: Never Used Second Hand Smoke Exposure: No service: No Current occupational status: employed Cognitive needs: No Hearing needs: No Vision needs: No Review of Systems Const All systems reviewed & are unremarkable except as noted in HPI and below Reports as per HPI, Denies body aches, Denies chills, Reports difficulty sleeping, Reports fatigue, Denies fever(s), Denies night sweats, Denies weakness and Denies weight loss Neuro Denies weakness Endo Reports fatigue Physical Exam Vital Signs: BMI result Body Mass Index 26.2 General: Appears afebrile. Alert and oriented. Mood and affect appropriate. Follows and participates in conversation appropriately. Respiratory effort is unlabored. No cough. Able to transition from sit to stand unassisted. Ambulates with bilaterally normal heel strike and toe off. Back/Spine/Pelvis Other: Patient is able to walk and stand on heels and tip toes with mild difficulty standing on heels otherwise demonstrating good motor tone. No limping. Can flex forward to 65-75 degrees and extend to 5-10 degrees before experiencing lumbar pain. Demonstrates 5/5 strength of quadriceps bilaterally as well as flexion/dorsiflexion of bilateral feet against resistance. 2+ pedal pulses bilaterally. Seated straight leg rise with dorsiflexion negative bilaterally. +1 patellar and achilles reflexes bilaterally. Facet loading test positive bilaterally. Florecita sign, Giovanni?s, Pelvic compression and Stinchfield tests are negative bilaterally. No groin pain with I/E hip rotations. Valsalva maneuver negative. Cervical Spine: cervical ROM normal and No Cervical spine tenderness Thoracic/Lumbar Spine: thoracic and lumbar spine normal to inspection, No Thoracic/lumbar spine scar(s), Lasegue's sign positive bilateral and diffuse, pain with thoraco-lumbar ROM, paraspinal muscle tenderness, No thoracic spinal tenderness and lumbar spinal tenderness at L4 and at L5 Pelvis: no buttock tenderness Sacroiliac joints: bilaterally nontender Results Reviewed Results Reviewed: CT LUMBAR SPINE WITHOUT CONTRAST 01/31/22 CLINICAL INFORMATION: Chronic right lower radiculopathy. FINDINGS: There are 5 nonrib-bearing lumbar-type vertebral bodies. Lumbar alignment is normal. There are no acute fractures and there are no acute subluxations. Large anterior right-sided bridging osteophyte at L5-S1 and smaller endplate osteophytes throughout the remainder of the lumbar spine. No suspicious intraosseous lesions. Vacuum phenomenon within the SI joints bilaterally. Right renal cyst. Bilateral perinephric stranding. Punctate nonobstructing calculus within the right kidney. L1-L2: Small annular disc bulge. Mild bilateral facet arthropathy. No appreciable central canal stenosis. Mild foraminal encroachment bilaterally. L2-L3: Diffuse annular disc bulge and bilateral facet arthropathy. No appreciable central canal stenosis. There is mild foraminal encroachment bilaterally. L3-L4: There is a diffuse annular disc bulge and there is moderate bilateral facet arthropathy and ligamentum flavum thickening. Findings in concert result in suspected moderate central canal stenosis, bilateral subarticular zone stenosis with possible mass effect on the traversing L4 nerve roots bilaterally, and mild bilateral foraminal encroachment. L4-L5: Diffuse annular disc bulge and bilateral facet arthropathy and ligamentum flavum thickening. Findings in concert result in suspected moderate to severe central canal stenosis, bilateral subarticular zone stenosis with mass effect on the traversing L5 nerve roots bilaterally, as well as moderate right and mild to moderate left foraminal stenosis with mass effect on the exiting right L4 nerve root. L5-S1: Diffuse disc osteophyte complex and bilateral hypertrophic facet arthropathy. There is no central canal stenosis. Severe bilateral foraminal stenosis with compression of the exiting L5 nerve roots bilaterally. IMPRESSION: - At L5-S1, multifactorial degenerative changes result in severe bilateral foraminal stenosis with compression of the exiting L5 nerve roots bilaterally. - At L4-L5, multifactorial degenerative changes result in suspected moderate to severe central canal stenosis, bilateral subarticular zone stenosis with mass effect on the traversing L5 nerve roots bilaterally, as well as moderate right and mild to moderate left foraminal stenosis with mass effect on the exiting right L4 nerve root. - At L3-L4, multifactorial degenerative changes result in suspected moderate central canal stenosis, bilateral subarticular zone stenosis with possible mass effect on the traversing L4 nerve roots bilaterally, and mild bilateral foraminal encroachment. Assessment & Plan Assessment & Plan (1) Lumbar spondylosis: Code(s): M47.816 - Spondylosis without myelopathy or radiculopathy, lumbar region (2) Lumbar spinal stenosis: Code(s): M48.061 - Spinal stenosis, lumbar region without neurogenic claudication Qualifiers: Neurogenic claudication status: unspecified Qualified Code(s): M48.061 - Spinal stenosis, lumbar region without neurogenic claudication (3) Lumbar radiculopathy: Code(s): M54.16 - Radiculopathy, lumbar region Plan Lumbar spine imaging to assess degree of degenerative changes prior to interventional treatments. For ongoing radicular pain, we will plan for Bilateral L4-L5 TFESI with local and fluoroscopy. For ongoing axial low back pain will tentatively plan for diagnostic bilateral L3-L4 DR L5 medial branch blocks with local and fluoroscopy. If he has significant relief from the diagnostic blocks for his axial low back pain, will consider either therapeutic injections, Sprint PNS or RFA depending on his preference. Informational pamphlets provided to patient. Justification for interventional therapy: ? Patient with average pain > 6/10 ? Patient has exhausted conservative therapy, NSAIDs, home exercie program The risks, consequences, alternatives, and benefits of various treatment options were discussed with the patient in great detail, including conservative management, injections and procedures. Orders: Orders XR lumbar spine 4V min 10/08/23 M47.816 - Spondylosis without myelopathy or radiculopathy, lumbar region Coding Level of Care Code New Pt Level 4 (64392) Diagnoses Lumbar spondylosis M47.816 Spinal stenosis of lumbar region, unspecified whether neurogenic claudication present M48.061 Neurogenic claudication status: unspecified Lumbar radiculopathy M54.16
[2023-10-08 10:38] VITALS: BMI 26.2
== END 2023-10-08 11:10 | disposition home or self-care (01) ==
PROVIDERS: PCP Nurse Practitioner Family; Visit Provider Nurse Practitioner Family
DX: M47.816 Spondylosis without myelopathy or radiculopathy, lumbar region (principal); M48.061 Spinal stenosis, lumbar region without neurogenic claudication; M54.16 Radiculopathy, lumbar region
CPT/HCPCS: 99204

== ENCOUNTER 2023-10-08 10:28 | Outpatient (REF) | payer OTHER, SELFPAY ==
--- NOTE | ~2023-10-08 | XR_ITS ---
EXAMINATION: XR LUMBOSACRAL SPINE WITH OBLIQUES CLINICAL INFORMATION: Spondylosis without myelopathy or radiculopathy lumbar region. COMPARISON: CT lumbar spine February 04, 2022. TECHNIQUE: 5 views of the lumbar spine. FINDINGS: Small pelvic calcifications are likely vascular. Facet arthritis in the lower lumbar spine. Moderate multilevel lumbar spondylosis. Mild anterior wedging of L1 vertebral body of indeterminate age. Moderate loss of disc space height at L1-L2. Minimal grade 1 retrolisthesis of L2 on L3. Mild loss of disc space height at L2-L3. Offd-nq-blrucilw loss of disc space height at L4-L5. Marked anterior hypertrophic change with loss of disc space height at L5-S1 with possible spondylolysis difficult to confirm due to overlying bony structures. XR/XR lumbar spine 4V min IMPRESSION: Multilevel lumbar spondylosis most notable at L5-S1.
== END 2023-10-08 10:29 | disposition home or self-care (01) ==
LOC: HO.XRAY 10:28
PROVIDERS: PCP Nurse Practitioner Family; Visit Provider Nurse Practitioner Family
DX: M47.816 Spondylosis without myelopathy or radiculopathy, lumbar region (principal)
CPT/HCPCS: 72110

== ENCOUNTER → 2023-10-12 07:57 | Outpatient (REF) | payer OTHER, SELFPAY ==
--- NOTE | 2023-10-12 08:00 | CA_ITS ---
Transthoracic Echocardiogram Patient (Last, First, Middle): Hero Duque D Gender: Male Date of : 1955 Age: 68 Procedure Date: 10/12/2023 Procedure Type: Transthoracic Echocardiogram Location: OP Height: 170.18 cm Weight: 76.2 kg BSA: 1.88 m2 Heart Rate: 61 bpm BP: 118 / 68 mmHg Hand Carver: SB Referring MD: Francisco Samuels MD Symptoms: M34.9 - Systemic sclerosis, unspecified Study Quality: Adequate ECG Rhythm: Sinus Conclusions: - The left ventricular systolic function is normal. The visually estimated ejection fraction is between 65-70%. - There is mildly decreased right ventricular systolic function. - No obvious valvular pathology seen on this study. Findings Left Ventricle Normal left ventricular cavity size. There is mildly increased left ventricular wall thickness. The left ventricular systolic function is normal. The visually estimated ejection fraction is between 65-70%. There is no evidence of regional wall motion abnormalities. Diastolic function is normal for age. There is moderate septal and moderate basal asymmetric hypertrophy. LV peak GLS -18.5%. Right Ventricle Mildly increased right ventricular cavity size. There is mildly decreased right ventricular systolic function. Atria Both atria are normal in size. Aortic Valve There is a normal trileaflet aortic valve. There is no aortic valve stenosis. There is no aortic valve regurgitation. Mitral Valve The mitral valve appears normal. There is trace mitral valve regurgitation. There is no mitral valve stenosis. Pulmonic Valve The pulmonic valve is likely normal. Tricuspid Valve Normal tricuspid valve structure. There is trace tricuspid valve regurgitation. There is no evidence of pulmonary hypertension. Great Vessels The asc aorta is normal in size. Venous The inferior vena cava is normal in size and collapses greater than 50% with inspiration. Pericardium/Pleural There is no evidence of pericardial effusion. Prior Study Comparison No significant change compared to prior study dated: 12/20/2014. Recommendations, Care & Conclusions No obvious valvular pathology seen on this study. Measurements 2D Linear Measurements IVSd: 1.23 0.6-0.9/0.6-1.0 cm LVIDd: 4.98 3.9-5.3/4.2-5.9 cm LVIDd Index: 2.65 2.4-3.2/2.2-3.1 cm/m2 LVIDs: 3.50 2.0-3.6 cm LVPWd: 1.09 0.7-1.1 cm LA Diam: 3.90 2.7-3.8/3.0-4.0 cm LAIDs Index: 2.07 1.5-2.3 cm/m2 LV Mass: 276.13 67-162/88-224 g LV Mass Index: 146.88 43-95/49-115 g/m2 LVOT Diam: 2.30 3.0+(-)1.3 cm 2D Systolic Function EF 4C: 74.50 >55% EF 2C: 69.40 >55% EF BiP: 71.30 >55% Mitral Valve MV Pk E: 0.79 MV PK A: 0.84 MV Decel Time: 175.00 E/A: 0.90 E'Lateral: 8.16 E'Medial: 4.68 E/E' Med: 16.80 E/E' Lat: 9.70 PHT: 51.00 MVA PHT: 4.31 Decel Hood: 4.50 Aortic Valve AoV Pk Enrico: 1.25 AoV Pk Grad: 6.00 PETER: 3.82 LVOT LVOT Pk Enrico: 1.25 LVOT Mn Enrico: 0.82 LVOT VTI: 0.26 LVOT Pk Grad: 6.00 LVOT Mn Grad: 4.00 LVOT Diam: 2.30 LVOT Area: 4.15 Diastolic Function MV Pk E: 0.79 MV Pk A: 0.84 E/A: 0.90 E'Medial: 4.68 E/E' Med: 16.80 E' Laterial: 8.16 E/E' Lat: 9.70 Right Ventricle TAPSE (mm): 18.00 TVS' Enrico: 8.81 Tricuspid Valve TR Pk Enrico: 2.43 TR Pk Grad: 24.00 RA Press: 3.00 RVSP: 27.00 Great Vessels Aorta Sinus of Valsalva: 3.90 2.0-3.[address] Ridge: 3.09 1.7-3.4 cm Ao Asc: 3.00 2.1-3.4 cm Pulmonary Valve PV Pk Enrico: 1.17 Peak PV Grad: 5.00 Updated in Other Vendor System with Status of Final Al Weaver MD electronically signed on 10/12/2023 11:18:05 AM with status of Final
== END ==
LOC: HO.CARD 07:57
PROVIDERS: PCP Nurse Practitioner Family; Visit Provider Student in an Organized Health Care Education/Training Program
DX: M34.9 Systemic sclerosis, unspecified (principal)
CPT/HCPCS: 93306; 93356

== ENCOUNTER → 2023-10-12 08:00 | Outpatient (BNV) | payer OTHER, SELFPAY | PROVIDERS: PCP Nurse Practitioner Family; Visit Provider Internal Medicine | DX: I51.9 Heart disease, unspecified (principal) | CPT/HCPCS: 93306 ==

== ENCOUNTER 2023-11-10 06:10 | Outpatient (REF) | payer OTHER, SELFPAY ==
--- NOTE | ~2023-11-10 | FL_ITS ---
EXAMINATION: XR FLUOROSCOPY WITH IMAGES CLINICAL INFORMATION: Lumbar radiculopathy. COMPARISON: CT lumbar spine 01/31/2022. TECHNIQUE: Fluoroscopy Supervised By: Julieth Moreno APRN Fluoroscopy Time: 0.7 minutes. Cumulative Dose: 8.08 mGy. DAP: 0.134 mGym2. Images: 4. FINDINGS: 2 needles are seen overlying the foramina which appears to be most likely L4 but please see Julieth Moreno's procedure note for full details. Some contrast is present in the epidural space around the nerve roots. FL/FL guidance in treatment room IMPRESSION: Fluoroscopic guidance for lumbar spine procedure.
== END 2023-11-10 06:11 | disposition home or self-care (01) ==
LOC: CF 06:10
PROVIDERS: Visit Provider Anesthesiology
DX: M54.16 Radiculopathy, lumbar region (principal); M47.816 Spondylosis without myelopathy or radiculopathy, lumbar region; M48.061 Spinal stenosis, lumbar region without neurogenic claudication
CPT/HCPCS: 64483; J3301; Q9967

== ENCOUNTER 2023-11-10 09:09 | Outpatient (AMB) | payer OTHER, SELFPAY ==
--- NOTE | 2023-11-10 09:15 | MHC.OFFVIS ---
Intake Vital Signs 11/10/23 09:17 11/10/23 10:29 Height 5 ft 7 in 5 ft 7 in Weight 167 lb 8 oz 167 lb 8 oz BMI 26.2 26.2 BP 110/64 118/68 Blood Pressure Location Lt brachial Lt brachial Position Sitting Sitting Respiration 16 16 Pulse 65 67 Pulse Source Pulse Oximeter Pulse Oximeter Pulse Oximetry (%) 98 100 Oxygen Delivery Method Room Air Room Air Comment pre-op post-op Intake Visit Reasons: BILAT L4-L5 TFESI/LOCAL Allergies No Known Allergies [No Known Allergies*] Allergy (Verified 11/10/23 09:15) PFS Medical History (Updated 10/11/23 @ 21:47 by MARTIR Roman) Shortness of breath Recurrent major depression resistant to treatment Arthralgia Raynauds disease Anemia Anemia Arthritis Surgical History No history of previous surgery Family History Mother No problems noted. Father No problems noted. Social History (Updated 10/08/23 @ 10:37 by Sabi Swann) Household Members: Spouse Housing: House Alcohol intake: current Alcohol intake frequency: holidays/special occasions only Patient Tobacco Use Status: Never used Tobacco e-Cigarette/Vaping Use: Never Used Second Hand Smoke Exposure: No service: No Current occupational status: employed Cognitive needs: No Hearing needs: No Vision needs: No Physical Exam Vital Signs: Last Vital Signs Pulse 67 11/10/23 10:29 Resp 16 11/10/23 10:29 BP 118/68 11/10/23 10:29 Pulse Ox 100 11/10/23 10:29 Oxygen Delivery Method Room Air 11/10/23 10:29 BMI result Body Mass Index 26.2 Assessment & Plan Assessment & Plan (1) Lumbar spondylosis: Code(s): M47.816 - Spondylosis without myelopathy or radiculopathy, lumbar region (2) Lumbar spinal stenosis: Code(s): M48.061 - Spinal stenosis, lumbar region without neurogenic claudication Qualifiers: Neurogenic claudication status: unspecified Qualified Code(s): M48.061 - Spinal stenosis, lumbar region without neurogenic claudication (3) Lumbar radiculopathy: Code(s): M54.16 - Radiculopathy, lumbar region Plan: Transforaminal epidural steroid injection bilateral L4-5. THE PATIENT CAME TO THE OPERATING ROOM AFTER OBTAINING INFORMED CONSENT. THE RISKS OF THE PROCEDURE WERE DELINEATED THE RISK OF BLEEDING INFECTION PERIPHERAL NERVE DAMAGE EPIDURAL HEMATOMA EPIDURAL ABSCESS AND OTHER UNSPECIFIED RISKS. THE PATIENT WAS POSITIONED PRONE ON THE OPERATING TABLE . TIME-OUT WAS OBTAINED DELINEATING CORRECT SIDE AND SITE OF THE PROCEDURE, PATIENT NAME AND DATE OF , NEED OF THE ANTIBIOTIC, RISK OF FIRE. The PATIENT PARTICIPATED IN THE TIME OUT PROCEDURE. LUMBAR AREA OF THE PATIENT WAS PREPPED WITH CHLORAPREP AND DRAPED WITH STERILE DRAPES, STERILELY DRAPED C-ARM WAS BROUGHT OVER THE OPERATING FIELD AND SQ PICTURE OF L4 VERTEBRA WAS DELINEATED ON THE SCREEN. C-ARM WAS TILTED 20? CEPHALAD AND 25 DEGREES TO THE RIGHT TO DEMONSTRATE THE MOST PROMINENT IMAGE OF the pedicle on THE RIGHT. 3mm below the lowest point of pedicle PROJECTION TO THE SKIN WAS CHOSEN A STARTING POINT OF THE INJECTION. 22 GAUGE 5 IN SPINAL NEEDLE WAS INSERTED THROUGH THE SKIN AND STARTED TO ADVANCE TO THE FORAMINA IN ANTERIOR POSTERIOR, OBLIQUE AND LATERAL VIEWS IN TUNNEL VISION FASHION. WHEN ON LATERAL VIEW THE NEEDLE ENTERED THE MOST POSTERIOR AND SUPERIOR PORTION OF THE FORAMINA INJECTION OF THE CONTRAST PERFORMED DELINEATING ANTERIOR EPIDURAL SPREAD OF THE CONTRAST. AFTER THAT TREATMENT SOLUTION CONTAINING 3 ML OF PRESERVATIVE-FREE LIDOCAINE 1% MIXED WITH KENALOG 40 MG WAS INJECTED INTO THE NEEDLE. UPON COMPLETION OF THE NEEDLE POSITIONING THE PROCEDURE WAS REPEATED ON THE SAME LEVEL LEFT SIDE IN THE MIRRORING FASHION. WHEN THE LEFT NEEDLE POSITION WAS VERIFIED THE SAME WAY IT WAS DONE FOR THE RIGHT NEEDLE THE INJECTION OF THE CONTRAST WAS PERFORMED DELINEATINF EPIDURAL AND PERINEURAL SPREAD OF THE CONTRAST. SAME DOSE OF LIDOCAIMNE MIXED WITH KENALOG WAS INJECTED. UPON COMPLETION OF THE INJECTION THE NEEDLES WERE REMOVED AND BANDAIDS WERE APPLIED. PATIENT TOLERATED PROCEDURE WELL, SHE WAS AWAKEN TAKEN OUTSIDE OF THE OPERATING ROOM TO PACU WHERE SHE RECOVERED UNEVENTFULLY. SHE WENT HOME WITHOUT IMMEDIATE COMPLICATIONS. Plan Lumbar spine imaging to assess degree of degenerative changes prior to interventional treatments. For ongoing radicular pain, we will plan for Bilateral L4-L5 TFESI with local and fluoroscopy. For ongoing axial low back pain will tentatively plan for diagnostic bilateral L3-L4 DR L5 medial branch blocks with local and fluoroscopy. If he has significant relief from the diagnostic blocks for his axial low back pain, will consider either therapeutic injections, Sprint PNS or RFA depending on his preference. Informational pamphlets provided to patient. Justification for interventional therapy: ? Patient with average pain > 6/10 ? Patient has exhausted conservative therapy, NSAIDs, home exercie program The risks, consequences, alternatives, and benefits of various treatment options were discussed with the patient in great detail, including conservative management, injections and procedures. Orders: Orders FL guidance in treatment room Today M54.16 - Radiculopathy, lumbar region Coding Level of Care Code Procedure Only Diagnoses Lumbar spondylosis M47.816 Spinal stenosis of lumbar region, unspecified whether neurogenic claudication present M48.061 Neurogenic claudication status: unspecified Lumbar radiculopathy M54.16
[2023-11-10 09:17] VITALS: BP 110/64; PULSE 65; RESP 16; O2SAT 98; BMI 26.2
[2023-11-10 10:29] VITALS: BP 118/68; PULSE 67; RESP 16; O2SAT 100; BMI 26.2
== END 2023-11-10 10:18 | disposition home or self-care (01) ==
PROVIDERS: PCP Nurse Practitioner Family; Visit Provider Anesthesiology
DX: M54.16 Radiculopathy, lumbar region (principal); M47.816 Spondylosis without myelopathy or radiculopathy, lumbar region; M48.061 Spinal stenosis, lumbar region without neurogenic claudication
CPT/HCPCS: 64483

== ENCOUNTER 2023-11-21 09:00 | Outpatient (REF) | payer OTHER, SELFPAY ==
--- NOTE | 2023-11-21 14:46 | PFT_ITS ---
Flows: FEV1: 119 % of predicted at 3.51 L FVC: 115 % of predicted at 3.85 L FEV1/FVC: 79 % Bronchodilator response: Present in small to medium airways only Volumes: Total lung capacity: 93 % of predicted at 6.01 L Residual volume: 64 % of predicted at 1.44 L Slow vital capacity: 109 % of predicted at 4.57 L Expiratory reserve volume: 62 % of predicted at 0.67 L Diffusion capacity: Normal Impression: No obstructive or restrictive ventilatory defect. No bronchodilator response except in small to medium airways. MTDD
== END 2023-11-21 09:01 | disposition home or self-care (01) ==
LOC: HO.RESP 09:00
PROVIDERS: PCP Nurse Practitioner Family; Visit Provider Student in an Organized Health Care Education/Training Program
DX: M34.9 Systemic sclerosis, unspecified (principal); R06.02 Shortness of breath
CPT/HCPCS: 94010; 94727; 94729

== ENCOUNTER → 2023-11-21 14:46 | Outpatient (BNV) | payer OTHER, SELFPAY | PROVIDERS: PCP Nurse Practitioner Family; Visit Provider Internal Medicine Pulmonary Disease | DX: R06.02 Shortness of breath (principal) | CPT/HCPCS: 94060; 94727; 94729 ==

== ENCOUNTER 2023-12-14 14:41 | Outpatient (AMB) | payer OTHER, SELFPAY ==
--- NOTE | 2023-12-14 14:47 | MHC.OFFVIS ---
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 Castaneda. Patient reports ongoing 90% pain relief for his back and bilateral leg pain with improved daily functioning, mobility, sleep and social activities. He reports days of axial low back pain flare ups with daily activities. Currently, he rates his pain at 1/10. Patient will continue to monitor his symptoms and notify our office when he is ready to address his axial low back pain. Denies any recent cough, cold, infection, fever, any significant changes in her medical history, medications or recent hospitalizations. Past Procedures: 11/10/23: Bilateral L4-L5 TFESI-90% ongoing pain relief PRIOR: Pleasant 68 years old male presents today for initial evaluation of chronic low back pain with radiation to both legs. Denies any recent or past trauma, injury, or falls. Patient states his chronic pain has been worsening since his last COVID illness as well as effects of Raynaud's disease and polyarthralgia. He also see Rheumatology provider. 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 He has a good day today and rates his pain at 3/10 but on his usual working day his pain is rated at 6-8/10. Pain affects his daily activities, functioning, work, sleep, mood, walking and quality of life. Patient is interested in epidural steroid injection for his radicular symptoms. He denies previous spine surgery or injections. Patient had CT scan of lumbar spine in 2021 which showed at L4-L5, multifactorial degenerative changes result in suspected moderate to severe central canal stenosis, bilateral subarticular zone stenosis with mass effect on the traversing L5 nerve roots bilaterally, as well as moderate right and mild to moderate left foraminal stenosis with mass effect on the exiting right L4 nerve root. Patient cannot undergo MRI due to remaining piece of metal in his left side of neck due to an injury in the past. Patient denies any fever, abdominal or groin pain, weakness, foot drop, bladder or bowel dysfunction, or saddle anesthesia. Location Mid back, radiates bilateral legs in L4-L5 distribution, worse L5 Duration Chronic pain for many years Characteristics of symptom or complaint Aching, tiring, throbbing, exhausting, radiating, numbness Aggravating or associated factors Movements, bending forward, walking, getting up, standing, prolonged sit Relieving factors Tylenol and Naproxen prn, heat therapy Treatment [employer], HEP, walking 10 miles almost daily [facility] Medical History Shortness of breath Recurrent major depression resistant to treatment Arthralgia Raynauds disease Anemia Anemia Arthritis Surgical History No history of previous surgery Family History Mother No problems noted. Father No problems noted. Social History Household Members: Spouse Housing: House Alcohol intake: current Alcohol intake frequency: holidays/special occasions only Patient Tobacco Use Status: Never used Tobacco e-Cigarette/Vaping Use: Never Used Second Hand Smoke Exposure: No service: No Current occupational status: employed Cognitive needs: No Hearing needs: No Vision needs: No Review of Systems Const All systems reviewed & are unremarkable except as noted in HPI and below Physical Exam Vital Signs: Last Vital Signs Pulse 84 12/14/23 14:50 BP 141/87 H 12/14/23 14:50 Pulse Ox 98 12/14/23 14:50 Oxygen Delivery Method Room Air 12/14/23 14:50 BMI result Body Mass Index 25.8 General: Appears afebrile. Alert and oriented. Mood and affect appropriate. Follows and participates in conversation appropriately. Respiratory effort is unlabored. No cough. Able to transition from sit to stand unassisted. Ambulates with bilaterally normal heel strike and toe off. Back/Spine/Pelvis Cervical Spine: cervical ROM normal and No Cervical spine tenderness Thoracic/Lumbar Spine: thoracic and lumbar spine normal to inspection, No Thoracic/lumbar spine scar(s), Lasegue's sign negative, straight leg raise negative bilaterally, pain with thoraco-lumbar ROM (with facet loading), paraspinal muscle tenderness, thoraco-lumbar ROM limited, No thoracic spinal tenderness and lumbar spinal tenderness at L4 and at L5 Pelvis: no buttock tenderness Sacroiliac joints: bilaterally nontender Results Reviewed Results Reviewed: CT LUMBAR SPINE WITHOUT CONTRAST 01/31/22 CLINICAL INFORMATION: Chronic right lower radiculopathy. FINDINGS: There are 5 nonrib-bearing lumbar-type vertebral bodies. Lumbar alignment is normal. There are no acute fractures and there are no acute subluxations. Large anterior right-sided bridging osteophyte at L5-S1 and smaller endplate osteophytes throughout the remainder of the lumbar spine. No suspicious intraosseous lesions. Vacuum phenomenon within the SI joints bilaterally. Right renal cyst. Bilateral perinephric stranding. Punctate nonobstructing calculus within the right kidney. L1-L2: Small annular disc bulge. Mild bilateral facet arthropathy. No appreciable central canal stenosis. Mild foraminal encroachment bilaterally. L2-L3: Diffuse annular disc bulge and bilateral facet arthropathy. No appreciable central canal stenosis. There is mild foraminal encroachment bilaterally. L3-L4: There is a diffuse annular disc bulge and there is moderate bilateral facet arthropathy and ligamentum flavum thickening. Findings in concert result in suspected moderate central canal stenosis, bilateral subarticular zone stenosis with possible mass effect on the traversing L4 nerve roots bilaterally, and mild bilateral foraminal encroachment. L4-L5: Diffuse annular disc bulge and bilateral facet arthropathy and ligamentum flavum thickening. Findings in concert result in suspected moderate to severe central canal stenosis, bilateral subarticular zone stenosis with mass effect on the traversing L5 nerve roots bilaterally, as well as moderate right and mild to moderate left foraminal stenosis with mass effect on the exiting right L4 nerve root. L5-S1: Diffuse disc osteophyte complex and bilateral hypertrophic facet arthropathy. There is no central canal stenosis. Severe bilateral foraminal stenosis with compression of the exiting L5 nerve roots bilaterally. IMPRESSION: - At L5-S1, multifactorial degenerative changes result in severe bilateral foraminal stenosis with compression of the exiting L5 nerve roots bilaterally. - At L4-L5, multifactorial degenerative changes result in suspected moderate to severe central canal stenosis, bilateral subarticular zone stenosis with mass effect on the traversing L5 nerve roots bilaterally, as well as moderate right and mild to moderate left foraminal stenosis with mass effect on the exiting right L4 nerve root. - At L3-L4, multifactorial degenerative changes result in suspected moderate central canal stenosis, bilateral subarticular zone stenosis with possible mass effect on the traversing L4 nerve roots bilaterally, and mild bilateral foraminal encroachment. Assessment & Plan Assessment & Plan (1) Lumbar spondylosis: Code(s): M47.816 - Spondylosis without myelopathy or radiculopathy, lumbar region (2) Lumbar spinal stenosis: Code(s): M48.061 - Spinal stenosis, lumbar region without neurogenic claudication Qualifiers: Neurogenic claudication status: unspecified Qualified Code(s): M48.061 - Spinal stenosis, lumbar region without neurogenic claudication (3) Lumbar radiculopathy: Code(s): M54.16 - Radiculopathy, lumbar region Plan Patient is status post bilateral L4-L5 TFESI with ongoing 90% pain relief for his radicular back and leg pain. Patient is aware that he can not receive another injection in this area for another two months. For ongoing axial low back pain will tentatively plan for diagnostic bilateral L3-L4 DR L5 medial branch blocks with local and fluoroscopy. If he has significant relief from the diagnostic blocks for his axial low back pain, will consider either therapeutic injections, Sprint PNS or RFA depending on his preference. Patient will notify our office when he is ready to proceed with these injections. All questions and concerns have been answered and patient agreed with the plan. Follow up as needed. Justification for interventional therapy: ? Patient with average pain > 6/10 ? Patient has exhausted conservative therapy, NSAIDs, home exercie program The risks, consequences, alternatives, and benefits of various treatment options were discussed with the patient in great detail, including conservative management, injections and procedures. Coding Level of Care Code Est Pt Level 3 (37192) Diagnoses Lumbar spondylosis M47.816 Spinal stenosis of lumbar region, unspecified whether neurogenic claudication present M48.061 Neurogenic claudication status: unspecified Lumbar radiculopathy M54.16
[2023-12-14 14:50] VITALS: BP 141/87; PULSE 84; O2SAT 98; BMI 25.8
== END 2023-12-14 15:02 | disposition home or self-care (01) ==
PROVIDERS: PCP Nurse Practitioner Family; Visit Provider Nurse Practitioner Family
DX: M47.816 Spondylosis without myelopathy or radiculopathy, lumbar region (principal); M48.061 Spinal stenosis, lumbar region without neurogenic claudication; M54.16 Radiculopathy, lumbar region
CPT/HCPCS: 99213

== ENCOUNTER 2023-12-14 14:41 | Outpatient (REF) | payer OTHER, SELFPAY ==
[2023-12-14 15:22] LABS: MANUAL DIFF FLAG NO
[2023-12-14 15:56] LABS: Basophils Percent Auto 0.2 % (0-2); Eosinophils Percent Auto 0.1 % (0-4); Hematocrit 37.8 % (42.0-52.0); Hemoglobin 13.3 g/dl (14.0-18.0); Imm Gran Abs Auto 0.02 X10*3/uL (0.00-0.03); Imm Gran Pct Auto 0.2 % (0.0-0.4); Lymphocytes Absolute Auto 0.8 X10*3/uL (1.2-4.9); Lymphocytes Percent Auto 9.9 % (20-40); Mean Corpuscular HGB Conc 35.2 g/dl (31.0-36.0); Mean Corpuscular Hemoglobin 31.4 pg (27.0-33.0); Mean Corpuscular Volume 89.2 fL (80.0-98.0); Mean Platelet Volume 10.5 fL (9.4-12.4); Monocytes Absolute Auto 0.5 X10*3/uL (0.1-1.2); Monocytes Percent Auto 6.2 % (2-11); Neutrophils Absolute Auto 7.1 x10*3/uL (2.0-8.3); Neutrophils Percent Auto 83.4 % (45-73); Platelet Count 202 X10*3/uL (160-400); Red Blood Count 4.24 X10*6/uL (4.60-5.80); Red Cell Distribution Width 12.9 % (11.0-16.0); White Blood Count 8.5 X10*3/uL (4.8-10.8)
[2023-12-14 16:32] LABS: Alanine Aminotransferase 38 U/L (0-40); Albumin Level 4.2 g/dL (3.5-5.0); Alkaline Phosphatase 84 U/L (39-117); Anion Gap 10 (12-20); Aspartate Amino Transferase 29 U/L (5-37); Bilirubin Total 0.5 mg/dL (0.0-1.0); Blood Urea Nitrogen 20 mg/dL (9-16); C Reactive Protein 0.67 mg/dL (< or = 0.50); Calcium 9.2 mg/dL (8.4-10.2); Carbon Dioxide 27 mmol/L (22-29); Chloride 108 mmol/L (96-108); Estimated Glomerular Filt Rate > 60; Glucose Random 111 mg/dL (60-115); Potassium 3.6 mmol/L (3.3-5.1); Sodium 141 mmol/L (135-145); Total Protein 6.8 g/dL (6.5-8.0)
[2023-12-14 16:42] LABS: Erythrocyte Sedimentation Rate 18 MM/HR (0-15)
[2023-12-14 16:46] LABS: PSA,Total (Free>4and<10) 2.56 ng/mL (0.00-4.00)
== END 2023-12-14 14:42 | disposition home or self-care (01) ==
LOC: HO.LAB 14:41
PROVIDERS: Absent Provider Student in an Organized Health Care Education/Training Program; PCP Nurse Practitioner Family; Visit Provider Nurse Practitioner Family
DX: Z12.5 Encounter for screening for malignant neoplasm of prostate (principal); M47.816 Spondylosis without myelopathy or radiculopathy, lumbar region; M48.061 Spinal stenosis, lumbar region without neurogenic claudication; M54.16 Radiculopathy, lumbar region; Z79.899 Other long term (current) drug therapy
CPT/HCPCS: 36415; 80053; 84153; 85025; 85652; 86140

== ENCOUNTER 2023-12-31 08:10 | Outpatient (AMB) | payer OTHER, SELFPAY ==
--- NOTE | 2023-12-31 08:12 | A.OFFVIS_ITS ---
Intake Vital Signs 12/31/23 08:17 Height 5 ft 7 in Weight 166 lb 0.129 oz BMI 26.0 BP 108/62 Blood Pressure Location Rt brachial Position Sitting Pulse 72 Pulse Source Pulse Oximeter Temp 97 F Temp Source Skin Intake Visit Reasons: Sjogren's Intake Note: Patient last seen 09/11/23 presents today for follow up and test results. 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 Patient took hydroxychloroquine for approximately 1 month and stopped it due to dizziness and inability to sleep well. He stopped it 2 months ago and continues to have some dizziness and insomnia. He stated that he steroid injection for his right knee and right thumb quite helpful. He also received an epidural injection by pain management. He did not feel the generalized achiness and fatigue improve after those injection however. He has been having some mild superficial bruising of his right forearm with impact. Initial history: This is a 67-year-old male who presents for evaluation of multiple joint pain. Patient states that he has had Raynaud's since his teens. His fingers change color to white blue and red. Denies ever having digital tip ulcers. States that over the last 1-2 years he has been having progressive joint pain especially in both thumbs, states that his fingers are swollen, ring on left ring finger is tight. She also states that he has bilateral hip pain as well as bilateral knee pain. Two years ago he had an EMG/NCV is no extremity showing acute on chronic her radiculopathy. 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 He is walking the hallways throughout the day. States that the majority of his pain in his legs and usually worse towards the end of the day. He has bilateral a pain that is worse in the morning and when standing up after sitting down. States that he does karate twice a week. States that he has history of depression for years but has become worse. Believes that his symptoms started a few months after COVID infection 1 year and half ago. He was evaluated by a elevator operator freight at the [facility], Dr. Atkinson with diagnosed him with osteoarthritis and he received a steroid injection in his right thumb which provided 1-2 months relief [facility] Medical History (Updated 12/31/23 @ 08:51 by Francisco Samuels MD) Recurrent major depression resistant to treatment Arthralgia Raynauds disease Anemia Anemia Arthritis Surgical History No history of previous surgery Family History Mother No problems noted. Father No problems noted. Social History Household Members: Spouse Housing: House Alcohol intake: current Alcohol intake frequency: holidays/special occasions only Patient Tobacco Use Status: Never used Tobacco e-Cigarette/Vaping Use: Never Used Second Hand Smoke Exposure: No service: No Current occupational status: employed Cognitive needs: No Hearing needs: No Vision needs: No Review of Systems Const Reports fatigue Musc Reports arthralgias and Reports stiffness Skin/Breast Reports unusual bruising Psych Reports depression Endo Reports fatigue Physical Exam Vital Signs: Last Vital Signs Temp 97 F 12/31/23 08:17 Pulse 72 12/31/23 08:17 BP 108/62 12/31/23 08:17 BMI result Body Mass Index 26.0 Const General: cooperative, healthy appearing and comfortable Nutritional Appearance: overweight Orientation/consciousness: patient oriented x3 Limitations: no limitations HEENT Head: Yes normocephalic and Yes atraumatic Resp Effort & Inspection: normal respiratory effort and able to speak in complete sentences Cardio Rate: regular rate Rhythm: regular rhythm GI Inspection: No distended Palpation (GI): Soft to palpation and nontender Neuro General: patient oriented x3 Extrem Other: Puffiness of both hands but no active synovitis Bilateral 1st CMC squaring Very few superficial bruises of right upper extremity No skin thickening Normal nailfold capillaroscopy Normal range of motion of both hands, elbows, shoulders without pain Assessment & Plan Assessment & Plan (1) Raynauds disease: Code(s): I73.00 - Raynaud's syndrome without gangrene Qualifiers: Raynaud?s-associated gangrene presence: without gangrene Qualified Code(s): I73.00 - Raynaud's syndrome without gangrene Plan: This is a 68-year-old male with history of Raynaud's dating back to his 20s who presents for evaluation of generalized fatigue and generalized body aches. Upon evaluation patient has mildly puffy fingers but no skin thickening. His labs showed a positive RNA polymerase 3 antibody. Mildly elevated CRP, mild anemia with normal iron studies. He does not fulfill criteria however for scleroderma or any other autoimmune rheumatic disease His Raynaud's symptoms are benign in nature. He does not have prolonged Raynaud's episodes, denies ever having any digital tip ulcers. Advised patient to continue with conservative measures for Raynaud's Patient has arthralgias but they do not seem to be inflammatory in nature. He has lower back pain radiating to his buttocks, thighs and knees which is related to his known lumbar degenerative disc disease. Patient's generalized fatigue symptoms did not improve after steroid injections Patient took hydroxychloroquine approximately 1 month but stopped it due to dizziness and insomnia. He stopped 2 months ago and continues to have the same symptoms. I do not think it is hydroxychloroquine related With regards to his malignancy screening. Patient stated that he had at least 2 colonoscopies. Which were unremarkable. PSA normal PFT and 2D echo done 10/2023 to screen for ILD and PAH were unremarkable. Can repeat every 1-2 years Patient's symptoms are quite mild and he does not want to try any medications. Will continue to monitor patient clinically (2) Osteoarthritis of first carpometacarpal joint of right hand: Code(s): M18.11 - Unilateral primary osteoarthritis of first carpometacarpal joint, right hand Qualifiers: Osteoarthritis type: primary Qualified Code(s): M18.11 - Unilateral primary osteoarthritis of first carpometacarpal joint, right hand Plan: Injected 09/2023 with relief, can be repeated in the future (3) Bilateral primary osteoarthritis of knee: Code(s): M17.0 - Bilateral primary osteoarthritis of knee Plan: Right knee was injected with Kenalog 09/2023. Can be repeated in the future if needed (4) Lumbar spinal stenosis: Code(s): M48.061 - Spinal stenosis, lumbar region without neurogenic claudication Qualifiers: Neurogenic claudication status: unspecified Qualified Code(s): M48.061 - Spinal stenosis, lumbar region without neurogenic claudication Plan: Continue to follow-up with pain management Plan I spent 26 minutes reviewing patient's chart, evaluating patient, counseling patient and documenting in the chart Coding Level of Care Code Est Pt Level 4 (66545) Diagnoses Raynaud's disease without gangrene I73.00 Raynaud?s-associated gangrene presence: without gangrene Primary osteoarthritis of first carpometacarpal joint of right hand M18.11 Osteoarthritis type: primary Bilateral primary osteoarthritis of knee M17.0 Spinal stenosis of lumbar region, unspecified whether neurogenic claudication present M48.061 Neurogenic claudication status: unspecified
[2023-12-31 08:17] VITALS: BP 108/62; PULSE 72; TEMP 36.1; BMI 26.0
== END 2023-12-31 08:48 | disposition home or self-care (01) ==
PROVIDERS: PCP Nurse Practitioner Family; Visit Provider Student in an Organized Health Care Education/Training Program
DX: I73.00 Raynaud's syndrome without gangrene (principal); M18.11 Unilateral primary osteoarthritis of first carpometacarpal joint, right hand; M17.0 Bilateral primary osteoarthritis of knee; M48.061 Spinal stenosis, lumbar region without neurogenic claudication
CPT/HCPCS: 99214

== ENCOUNTER → 2023-12-31 08:10 | Outpatient (BNVA) | payer OTHER, SELFPAY | PROVIDERS: PCP Nurse Practitioner Family; Visit Provider Student in an Organized Health Care Education/Training Program ==

== ENCOUNTER 2024-03-30 14:32 | Outpatient (AMB) | payer OTHER, SELFPAY ==
[2024-03-30 14:33] VITALS: BP 124/70; PULSE 74; O2SAT 98; BMI 25.7
--- NOTE | 2024-03-30 14:33 | MHC.PC.OV ---
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 Accompanied by: Self / Same As Patient Allergies No Known Allergies [No Known Allergies*] Allergy (Verified 03/30/24 15:09) Medication List - Last Reconciled 03/30/24 by ALEN Curry No Known Home Meds Tobacco use date assessed: 03/30/24 Fall risk assessment: No Falls in past year Last assessed Fall Risk: 03/30/24 Dental Screening Dental Screen Date: 03/30/24 Did you have a dental visit in the last 12 months?: Yes Did you have a dental problem in the last 6 months where you did not have access to dental care?: No Was dental information given to patient?: Patient has dentist HPI annual exam HPI Details Pt is here for a PE. Will order labs. Due for colon screen, will refer to GI. PSA is up to date. Pt follows up with rheumatology, hematology, and pain management. Pt has multiple macular lesions to his scalp that range in size and shape. Will refer to dermatology. Pt reports ongoing depression. He states that the only thing that works is nasal ketamine but he can not afford this. Denies any SI and HI. Pt takes triazolam intermittently for sleep. Will send. [facility] Medical History Recurrent major depression resistant to treatment Arthralgia Raynauds disease Anemia Anemia Arthritis Surgical History No history of previous surgery Family History Mother No problems noted. Father No problems noted. Social History Household Members: Spouse Housing: House Alcohol intake: current Alcohol intake frequency: holidays/special occasions only Patient Tobacco Use Status: Never used Tobacco e-Cigarette/Vaping Use: Never Used Second Hand Smoke Exposure: No service: No Current occupational status: employed Cognitive needs: No Hearing needs: No Vision needs: No Questionnaire PHQ-9 Over the last 2 weeks, how often have you been bothered by any of the following problems? 1. Little interest or pleasure in doing things: not at all 2. Feeling down, depressed, or hopeless: not at all 3. Trouble falling or staying asleep, or sleeping too much: not at all 4. Feeling tired or having little energy: not at all 5. Poor appetite or overeating: not at all 6. Feeling bad about yourself - or that you are a failure or have let yourself or your family down: not at all 7. Trouble concentrating on things, such as reading the newspaper or watching television: not at all 8. Moving or speaking so slowly that other people could have noticed. Or the opposite - being so fidgety or restless that you have been moving around a lot more than usual: not at all 9. Thoughts that you would be better off or of hurting yourself in some way: not at all Total score: 0 Depression Screening Interpretation: Negative Depression Screening Done: Yes 30056 - PHQ-9 Billing: Yes Source: Developed by Drs. Ant Mccurdy, Kecia Diallo, Denton Rosales and colleagues, with an educational brooklyn from [employer]. Thrive Questionnaire Date Thrive assessed: 03/30/24 I am a: Patient What is your living situation today?: I have a steady place to live Within the past 12 months, did the food you bought not last and you didn't have the money to get more?: Never true Within the past 12 months, did you worry whether your food would run out before you got money to buy more?: Never true Do you have trouble paying for medicines?: No Do you have trouble getting transportation to medical appointments?: No Do you have trouble paying your heating and electricity bill?: No Do you have trouble taking care of your child, family member or friend?: No Do you have trouble with day-to-day activities such as bathing, preparing meals, shopping, managing finances, etc.?: No Are you currently unemployed and looking for a job?: No Are you interested in more education?: No Please select the resources that you would like help with: None Currently or been in a relationship where the following occur: no concerns reported THRIVE Score: 0 AUDIT C Alcohol Use Questionnaire (AUDIT-C) 1. How often do you have a drink containing alcohol?: 2-4 times a month 2. How many drinks containing alcohol do you have on a typical day when you are drinking?: 1 or 2 3. How often do you have six or more drinks on one occasion?: Never Total Score: 2 Score Reviewed/Action Taken: Yes BAIRON-7 AMB Questionnaire BAIRON-7 Date BAIRON - 7 assessed: 03/30/24 Feeling nervous, anxious, or on edge: 0 = Not at all Not being able to stop or control worryin = Not at all Worrying too much about different things: 0 = Not at all Trouble relaxin = Not at all Being so restless that it is hard to sit still: 0 = Not at all Becoming easily annoyed or irritable: 0 = Not at all Feeling afraid as if something awful might happen: 0 = Not at all Total BAIRON-7 score (0-4 normal; 5-9 mild; 10-14 moderate; 15-21 severe): 0 Source: Developed by Drs. Ant Mccurdy, Kecia Diallo, Denton Rosales and colleagues, with an educational brooklyn from [employer]. BAIRON-7 Assessment Billing BAIRON-7 Assessment Tool: BAIRON-7 Assessment 74048 Review of Systems Const Denies chills and Denies fever(s) Eyes Denies blurry vision ENT Denies vertigo, Denies dizziness and Denies sore throat Card Denies chest pain at rest, Denies chest pain with activity, Denies diaphoresis, Denies dyspnea and Denies dyspnea on exertion Resp Denies cough, Denies dyspnea, Denies dyspnea on exertion and Denies wheezing GI Denies abdominal pain, Denies melena, Denies hematochezia, Denies constipation, Denies diarrhea and Denies loose stools Denies hematuria Musc Denies numbness and Denies tingling Skin/Breast Denies lesions Neuro Denies vertigo, Denies dizziness, Denies numbness and Denies tingling Psych Denies anxiety, Denies depression, Denies homicidal ideation, Denies suicidal ideation and Denies other (substance abuse) Aller/Immun Denies wheezing Physical exam (Primary Care) Vital Signs: Last Vital Signs Pulse 74 03/30/24 14:33 BP 124/70 03/30/24 14:33 Pulse Ox 98 03/30/24 14:33 Oxygen Delivery Method Room Air 03/30/24 14:33 BMI result Body Mass Index 25.7 Tobacco/Smoking Status: Tobacco use Status Tobacco use date assessed 03/30/24 03/30/24 14:35 Patient Tobacco Use Status Never used Tobacco 03/30/24 14:35 e-Cigarette/Vaping Use Never Used 03/30/24 14:35 PHQ-9: PHQ-9 Score PHQ-9: Total score 0 03/30/24 15:02 Depression Screening Interpretation: Negative Thrive Assessment: Date of Thrive Assessment Date Thrive assessed 03/30/24 03/30/24 14:35 Currently or been in a relationship where the following occur: no concerns reported Const General: cooperative Nutritional Appearance: well nourished Orientation/consciousness: patient oriented x3 HENMT Head: Yes normal to inspection, Yes normocephalic and Yes atraumatic Ears: TM's normal bilaterally Eyes General: appearance normal, both eyes and all related structures Alignment and Position: alignment normal and position normal Neck Neck: Yes normal visual inspection and Yes no lymphadenopathy Thyroid: Thyroid normal Resp Effort & Inspection: normal respiratory effort Auscultation: clear to auscultation bilaterally Cardio Rate: regular rate Rhythm: regular rhythm Heart sounds: S1 normal heart sound present, S2 normal heart sound present and no murmurs GI Palpation (GI): Soft to palpation and nontender Auscultation: normal bowel sounds Male General Exam: Yes normal external exam Penis: normal penis Scrotum: scrotum normal, testes descended bilaterally and no inguinal hernias Testes: no testicular mass Skin Other: upper scalp with several macular lesions, darker, range in size and shape/round Rashes: no rashes Neuro General: patient oriented x3, moves all extremities, no focal motor deficits and deep tendon reflexes 2+ bilaterally Romberg Test: Negative Psych Appearance: grossly normal Mental Status: mental status grossly normal Speech and movement: Normal speech and movement present Affect: normal affect Attitude: cooperative Thought process: Normal thought process present Thought content: Normal thought content present Insight: Good insight present (Psych) Judgement: Good judgement present (Psych) Assessment and Plan Assessment & Plan (1) Screening for colon cancer: Code(s): Z12.11 - Encounter for screening for malignant neoplasm of colon Plan: Referred to GI (2) Physical exam: Code(s): Z00.00 - Encounter for general adult medical examination without abnormal findings Plan: Labs ordered (3) Scalp lesion: Code(s): L98.9 - Disorder of the skin and subcutaneous tissue, unspecified Plan: referral to derm (4) Insomnia: Code(s): G47.00 - Insomnia, unspecified Plan: med sent Plan The patient agreed to the use of a program medical director for this encounter. Scribed for MARTIR Pimentel- by Temi Escalera program medical director, on 03/30/2024 at 14:55 EST. Orders: Orders Comprehensive [place]ong. Panel Fast Today Z00.00 - Encounter for general adult medical examination without abnormal findings UA CC w/rflx Micro + Cult Today Z00.00 - Encounter for general adult medical examination without abnormal findings Lipid Panel Today Z00.00 - Encounter for general adult medical examination without abnormal findings Complete Blood Count Auto Diff Today Z00.00 - Encounter for general adult medical examination without abnormal findings TSH reflex Free T4 Today Z00.00 - Encounter for general adult medical examination without abnormal findings Referrals Gastroenterology Referral Z12.11 - Encounter for screening for malignant neoplasm of colon Dermatology Referral L98.9 - Disorder of the skin and subcutaneous tissue, unspecified Medications: New triazolam 0.25 mg PO BEDTIME PRN 30 tabs 0RF sleep 30 days Coding Level of Care Code Est Pt Prev Care >65y(48623) Diagnoses Screening for colon cancer Z12.11 Physical exam Z00.00 Scalp lesion L98.9 Insomnia G47.00 Additional Codes BAIRON-7 Assessment Billing - BAIRON-7 Assessment Tool: BAIRON-7 Assessment 04813 ([id number])
== END 2024-03-30 15:09 | disposition home or self-care (01) ==
PROVIDERS: PCP Nurse Practitioner Family; Visit Provider Nurse Practitioner Family
DX: Z12.11 Encounter for screening for malignant neoplasm of colon (principal); Z00.00 Encounter for general adult medical examination without abnormal findings; L98.9 Disorder of the skin and subcutaneous tissue, unspecified; G47.00 Insomnia, unspecified
CPT/HCPCS: 99397

== ENCOUNTER 2024-04-06 07:53 | Outpatient (REF) | payer OTHER, SELFPAY ==
[2024-04-06 08:05] LABS: MANUAL DIFF FLAG NO
[2024-04-06 08:23] LABS: Basophils Percent Auto 0.5 % (0-2); Eosinophils Absolute Auto 0.1 X10*3/uL (0.0-0.4); Eosinophils Percent Auto 1.7 % (0-4); Hematocrit 38.6 % (42.0-52.0); Hemoglobin 13.5 g/dl (14.0-18.0); Imm Gran Abs Auto 0.01 X10*3/uL (0.00-0.03); Imm Gran Pct Auto 0.2 % (0.0-0.4); Lymphocytes Absolute Auto 1.1 X10*3/uL (1.2-4.9); Lymphocytes Percent Auto 27.9 % (20-40); Mean Corpuscular Hemoglobin 31.5 pg (27.0-33.0); Mean Platelet Volume 10.7 fL (9.4-12.4); Monocytes Absolute Auto 0.5 X10*3/uL (0.1-1.2); Neutrophils Absolute Auto 2.4 x10*3/uL (2.0-8.3); Neutrophils Percent Auto 58.7 % (45-73); Platelet Count 158 X10*3/uL (160-400); Red Blood Count 4.29 X10*6/uL (4.60-5.80); Red Cell Distribution Width 12.2 % (11.0-16.0); White Blood Count 4.1 X10*3/uL (4.8-10.8)
[2024-04-06 08:58] LABS: Alanine Aminotransferase 33 U/L (0-40); Albumin Level 4.1 g/dL (3.5-5.0); Alkaline Phosphatase 77 U/L (39-117); Anion Gap 10 (12-20); Aspartate Amino Transferase 34 U/L (5-37); Bilirubin Total 0.6 mg/dL (0.0-1.0); Blood Urea Nitrogen 20 mg/dL (9-16); Calcium 9.4 mg/dL (8.4-10.2); Carbon Dioxide 28 mmol/L (22-29); Chloride 107 mmol/L (96-108); Cholesterol 181 mg/dL (<200); Estimated Glomerular Filt Rate > 60; Glucose Fasting 106 mg/dL (60-99); HDL Cholesterol 59 mg/dL (>40); LDL Cholesterol Calculated 112 mg/dL (<100); Sodium 141 mmol/L (135-145); Total Protein 6.7 g/dL (6.5-8.0); Triglycerides 51 mg/dL (<150)
[2024-04-06 09:17] LABS: TSH reflex Free T4 0.49 uIU/mL (0.32-4.0)
== END 2024-04-06 07:54 | disposition home or self-care (01) ==
LOC: HO.LAB 07:53
PROVIDERS: PCP Nurse Practitioner Family; Visit Provider Nurse Practitioner Family
DX: Z00.00 Encounter for general adult medical examination without abnormal findings (principal)
CPT/HCPCS: 36415; 80053; 80061; 84443; 85025

== ENCOUNTER 2024-04-12 09:47 | Outpatient (AMB) | payer OTHER, SELFPAY ==
--- NOTE | 2024-04-12 07:53 | MHC.PC.OV ---
Intake Visit Reasons: review labs-Iphone Allergies No Known Allergies [No Known Allergies*] Allergy (Verified 03/30/24 15:09) Tobacco use date assessed: 03/30/24 Dental Screening Dental Screen Date: 03/30/24 HPI review labs-Iphone HPI Details Pt has a hx of anemia. Pt does report fatigue and easy bruising. He has seen hematology for this in the past, will contact them for a follow up. Pt is also following up with rheumatology, ? rheumatological reasoning for fatigue/arthalgias . Will repeat labs. Denies fever, chills, and blood in stool. [facility] Medical History Recurrent major depression resistant to treatment Arthralgia Raynauds disease Anemia Anemia Arthritis Surgical History No history of previous surgery Family History Mother No problems noted. Father No problems noted. Social History Household Members: Spouse Housing: House Alcohol intake: current Alcohol intake frequency: holidays/special occasions only Patient Tobacco Use Status: Never used Tobacco e-Cigarette/Vaping Use: Never Used Second Hand Smoke Exposure: No service: No Current occupational status: employed Cognitive needs: No Hearing needs: No Vision needs: No Questionnaire Thrive Questionnaire Date Thrive assessed: 03/30/24 BAIRON-7 AMB Questionnaire BAIRON-7 Date BAIRON - 7 assessed: 03/30/24 Source: Developed by Drs. Ant Mccurdy, Kecia Diallo, Denton Rosales and colleagues, with an educational brooklyn from [employer]. Review of Systems Const Reports as per HPI Physical exam (Primary Care) Tobacco/Smoking Status: Tobacco use Status Tobacco use date assessed 03/30/24 04/12/24 07:55 Patient Tobacco Use Status Never used Tobacco 04/12/24 07:55 e-Cigarette/Vaping Use Never Used 04/12/24 07:55 Thrive Assessment: Date of Thrive Assessment Date Thrive assessed 03/30/24 04/12/24 07:55 Const General: cooperative Orientation/consciousness: patient oriented x3 Neuro General: patient oriented x3 Psych Appearance: grossly normal Mental Status: mental status grossly normal Speech and movement: Clear speech present Affect: normal affect Attitude: cooperative Thought process: Normal thought process present Thought content: Normal thought content present Insight: Good insight present (Psych) Judgement: Good judgement present (Psych) Telehealth Telehealth Telehealth Platform: [employer] Location of provider rendering services: practice address Location of patient: address on file Patient Identification confirmed using: Name, : Yes Telehealth method: video Patient verbally consented to treatment: Yes Patient verbally consented to billing insurance company: Yes Patient informed of any privacy concerns related to visit: Yes Minutes spent on Phone/Video with Pt.: 10 Assessment and Plan Assessment & Plan (1) Easy bruising: Code(s): R23.3 - Spontaneous ecchymoses Plan: Labs ordered (2) Fatigue: Code(s): R53.83 - Other fatigue Plan: labs and follow up with hematology and rheumatology (3) Anemia: Code(s): D64.9 - Anemia, unspecified Plan: will cont to monitor Plan The patient agreed to the use of a bilingual medical receptionist for this encounter. Scribed for TARA Pimentel by Temi Escalera bilingual medical receptionist, on 04/12/2024 at 07:55 EST. Orders: Orders Complete Blood Count Auto Diff Today R23.3 - Spontaneous ecchymoses Prothrombin Time INR Today R23.3 - Spontaneous ecchymoses Partial Thromboplastin Time Today R23.3 - Spontaneous ecchymoses Tick-borne Disease Molecular Today D64.9 - Anemia, unspecified, R23.3 - Spontaneous ecchymoses, R53.83 - Other fatigue Vitamin B12 and Folate Today D64.9 - Anemia, unspecified, R23.3 - Spontaneous ecchymoses, R53.83 - Other fatigue Reticulocyte Count Today D64.9 - Anemia, unspecified, R23.3 - Spontaneous ecchymoses, R53.83 - Other fatigue Hemoglobin Electrophoresis Today D64.9 - Anemia, unspecified, R23.3 - Spontaneous ecchymoses, R53.83 - Other fatigue Comprehensive Met. Panel Today R23.3 - Spontaneous ecchymoses Lactate Dehydrogenase Today R23.3 - Spontaneous ecchymoses Testosterone, Free/Total Today D64.9 - Anemia, unspecified, R23.3 - Spontaneous ecchymoses, R53.83 - Other fatigue Ferritin Today D64.9 - Anemia, unspecified, R23.3 - Spontaneous ecchymoses, R53.83 - Other fatigue IRON PROFILE Today D64.9 - Anemia, unspecified, R23.3 - Spontaneous ecchymoses, R53.83 - Other fatigue Coding Level of Care Code Tele Est Pt Level 3 (51623) Diagnoses Easy bruising R23.3 Fatigue R53.83 Anemia D64.9
== END 2024-04-12 11:19 | disposition home or self-care (01) ==
LOC: HO.HMGC 09:47
PROVIDERS: PCP Nurse Practitioner Family; Visit Provider Nurse Practitioner Family
DX: R23.3 Spontaneous ecchymoses (principal); R53.83 Other fatigue; D64.9 Anemia, unspecified
CPT/HCPCS: 99213

== ENCOUNTER 2024-05-11 14:34 | Outpatient (AMB) | payer BC, SELFPAY ==
--- NOTE | 2024-05-11 14:41 | MHC.OFFVIS ---
Vital Signs 05/11/24 14:42 Height 5 ft 7 in Weight 166 lb 10.711 oz BMI 26.1 BP 112/70 Blood Pressure Location Lt brachial Position Sitting Pulse 70 Pulse Source Pulse Oximeter Pulse Oximetry (%) 95 Oxygen Delivery Method Room Air Intake Visit Reasons: Rt knee /rt wrist pain/injection/CM Intake Note: Patient presents for Rt knee/Rt writs pain and injection. Allergies No Known Allergies [No Known Allergies*] Allergy (Verified 05/11/24 14:42) Medication List - Last Reconciled 05/11/24 by Francisco Samuels MD triazolam 0.25 mg PO BEDTIME PRN 30 days HPI Comments Details: 68-year-old male with UCTD (RNA kristie III +) returns for follow-up. He states that injections done in the right knee and right thumb were quite helpful for 3-4 months. Would like time repeated. Especially that he has going on a cruise soon. He also had an injection when by Pain Management in his back which provided 1-2 months relief. She feels about the same overall. Gets generalized body aches and stiffness especially in the morning, some improvement with Tylenol. No improvement with NSAIDs Initial history: This is a 67-year-old male who presents for evaluation of multiple joint pain. Patient states that he has had Raynaud's since his teens. His fingers change color to white blue and red. Denies ever having digital tip ulcers. States that over the last 1-2 years he has been having progressive joint pain especially in both thumbs, states that his fingers are swollen, ring on left ring finger is tight. She also states that he has bilateral hip pain as well as bilateral knee pain. Two years ago he had an EMG/NCV is no extremity showing acute on chronic her radiculopathy. 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 He is walking the hallways throughout the day. States that the majority of his pain in his legs and usually worse towards the end of the day. He has bilateral a pain that is worse in the morning and when standing up after sitting down. States that he does karate twice a week. States that he has history of depression for years but has become worse. Believes that his symptoms started a few months after COVID infection 1 year and half ago. He was evaluated by a devops solutions architect at the [facility], Dr. Atkinson with diagnosed him with osteoarthritis and he received a steroid injection in his right thumb which provided 1-2 months relief [facility] Medical History Recurrent major depression resistant to treatment Arthralgia Raynauds disease Anemia Anemia Arthritis Surgical History No history of previous surgery Family History Mother No problems noted. Father No problems noted. Social History Household Members: Spouse Housing: House Alcohol intake: current Alcohol intake frequency: holidays/special occasions only Patient Tobacco Use Status: Never used Tobacco e-Cigarette/Vaping Use: Never Used Second Hand Smoke Exposure: No service: No Current occupational status: employed Cognitive needs: No Hearing needs: No Vision needs: No Review of Systems Musc Reports arthralgias and Reports stiffness Skin/Breast Reports unusual bruising Physical Exam Vital Signs: Last Vital Signs Pulse 70 05/11/24 14:42 BP 112/70 05/11/24 14:42 Pulse Ox 95 05/11/24 14:42 Oxygen Delivery Method Room Air 05/11/24 14:42 BMI result Body Mass Index 26.1 Const General: cooperative, healthy appearing and comfortable Nutritional Appearance: overweight Orientation/consciousness: patient oriented x3 Limitations: no limitations HEENT Head: Yes normocephalic and Yes atraumatic Resp Effort & Inspection: normal respiratory effort and able to speak in complete sentences Cardio Rate: regular rate Rhythm: regular rhythm GI Inspection: No distended Palpation (GI): Soft to palpation and nontender Neuro General: patient oriented x3 Extrem Other: Puffiness of both hands but no active synovitis Bilateral 1st CMC squaring Right 1st CMC joint tenderness Bilateral knee crepitus Very few superficial bruises of right upper extremity No skin thickening Normal nailfold capillaroscopy Normal range of motion of both hands, elbows, shoulders without pain Office Procedures Joint Injection/Drain Joint Injection/Drain Primary Site: right knee Secondary Site: right thumb Prep: site was prepped using sterile technique and ethochloride spray was applied Approach Used: medial parapatellar Procedure: The patient tolerated the procedure well Coding Details: With the patient's consent the right knee was prepped with ChloraPrep and alcohol. The skin was anesthetized with 2 cc of 1% lidocaine. The knee was then injected with 40 mg of triamcinolone and 2 cc of I % lidocaine. Then, the right 1st CMC joint area was prepped with ChloraPrep, ethyl chloride spray was used then using a 27 gauge needle 20 mg of Kenalog mixed with 0.1 cc of 1% lidocaine was injected into the joint space. The patient tolerated both procedures well with no apparent immediate adverse events - Small Joint - Large joint Procedure code (CPT) selection complete (1 small joint and 1 large joint) Assessment & Plan Assessment & Plan (1) Raynauds disease: Code(s): I73.00 - Raynaud's syndrome without gangrene Category: Medical Qualifiers: Raynaud?s-associated gangrene presence: without gangrene Qualified Code(s): I73.00 - Raynaud's syndrome without gangrene Plan: This is a 68-year-old male with history of Raynaud's dating back to his 20s who presents for evaluation of generalized fatigue and generalized body aches. Upon evaluation patient has mildly puffy fingers but no skin thickening. His labs showed a positive RNA polymerase 3 antibody. Mildly elevated CRP, mild anemia with normal iron studies. He does not fulfill criteria however for scleroderma or any other autoimmune rheumatic disease His Raynaud's symptoms are benign in nature. He does not have prolonged Raynaud's episodes, denies ever having any digital tip ulcers. Advised patient to continue with conservative measures for Raynaud's Patient has arthralgias but they do not seem to be inflammatory in nature. He has lower back pain radiating to his buttocks, thighs and knees which is related to his known lumbar degenerative disc disease. Patient's generalized fatigue symptoms did not improve after steroid injections Patient took hydroxychloroquine approximately 1 month but stopped it due to dizziness and insomnia. He stopped 2 months ago and continues to have the same symptoms. I do not think it is hydroxychloroquine related With regards to his malignancy screening. Patient stated that he had at least 2 colonoscopies. Which were unremarkable. PSA normal PFT and 2D echo done 10/2023 to screen for ILD and PAH were unremarkable. Can repeat every 1-2 years Patient's symptoms are quite mild and he does not want to try any medications. Will continue to monitor patient clinically (2) Osteoarthritis of first carpometacarpal joint of right hand: Code(s): M18.11 - Unilateral primary osteoarthritis of first carpometacarpal joint, right hand Category: Medical Qualifiers: Osteoarthritis type: primary Qualified Code(s): M18.11 - Unilateral primary osteoarthritis of first carpometacarpal joint, right hand Plan: Injected 09/2023 with with 3-4 months relief. Today patient requesting repeat injections. With patient's consent, right 1st CMC joint was injected with Kenalog today. Injections can be repeated in the future as needed (3) Bilateral primary osteoarthritis of knee: Code(s): M17.0 - Bilateral primary osteoarthritis of knee Category: Medical Plan: Right knee was injected with Kenalog 09/2023. With 3-4 months relief. Today patient requesting repeat injections. With patient's consent, right knee was injected with Kenalog injections can be repeated in the future as needed (4) Lumbar spinal stenosis: Code(s): M48.061 - Spinal stenosis, lumbar region without neurogenic claudication Category: Medical Qualifiers: Neurogenic claudication status: unspecified Qualified Code(s): M48.061 - Spinal stenosis, lumbar region without neurogenic claudication Plan: Continue to follow-up with pain management Plan I spent 26 minutes reviewing patient's chart, evaluating patient, counseling patient and documenting in the chart Orders: Orders AMB Joint Injection/Aspiration Today M17.0 - Bilateral primary osteoarthritis of knee, M17.11 - Unilateral primary osteoarthritis, right knee, M18.11 - Unilateral primary osteoarthritis of first carpometacarpal joint, right hand Coding Level of Care Code Est Pt Level 4 (26360) Diagnoses Raynaud's disease without gangrene I73.00 Raynaud?s-associated gangrene presence: without gangrene Primary osteoarthritis of first carpometacarpal joint of right hand M18.11 Osteoarthritis type: primary Bilateral primary osteoarthritis of knee M17.0 Spinal stenosis of lumbar region, unspecified whether neurogenic claudication present M48.061 Neurogenic claudication status: unspecified CPT Codes Coding - 04166 - Small joint: 82107 - Small Joint ([id number]) Coding - 96425 Large joint: 96313 - Large joint ([id number])
[2024-05-11 14:42] VITALS: BP 112/70; PULSE 70; O2SAT 95; BMI 26.1
== END 2024-05-11 15:40 | disposition home or self-care (01) ==
PROVIDERS: PCP Nurse Practitioner Family; Visit Provider Student in an Organized Health Care Education/Training Program
DX: I73.00 Raynaud's syndrome without gangrene (principal); M18.11 Unilateral primary osteoarthritis of first carpometacarpal joint, right hand; M17.0 Bilateral primary osteoarthritis of knee; M48.061 Spinal stenosis, lumbar region without neurogenic claudication
CPT/HCPCS: 20600; 20610; 99213

== ENCOUNTER → 2024-05-11 14:34 | Outpatient (BNVA) | payer BC, SELFPAY | PROVIDERS: PCP Nurse Practitioner Family; Visit Provider Student in an Organized Health Care Education/Training Program | DX: I73.00 Raynaud's syndrome without gangrene (principal); M18.11 Unilateral primary osteoarthritis of first carpometacarpal joint, right hand; M17.0 Bilateral primary osteoarthritis of knee; M48.061 Spinal stenosis, lumbar region without neurogenic claudication | CPT/HCPCS: 20600; 20610; J3301 ==

== ENCOUNTER 2024-08-30 06:04 | Outpatient (REF) | payer BC, SELFPAY | END 2024-08-30 06:05 | disposition home or self-care (01) | LOC: CF 06:04 | PROVIDERS: Visit Provider Anesthesiology | DX: M47.816 Spondylosis without myelopathy or radiculopathy, lumbar region (principal); M54.16 Radiculopathy, lumbar region; M48.061 Spinal stenosis, lumbar region without neurogenic claudication | CPT/HCPCS: 64483; J2003; J3301; Q9967 ==

== ENCOUNTER 2024-08-30 07:07 | Outpatient (AMB) | payer BC, SELFPAY ==
[2024-08-30 07:30] VITALS: BP 127/79; PULSE 63; RESP 15; O2SAT 99
--- NOTE | 2024-08-30 08:14 | A.OFFVIS_ITS ---
Vital Signs 08/30/24 07:30 08/30/24 08:15 BP 127/79 141/80 H Blood Pressure Location Rt brachial Rt brachial Position Sitting Sitting Respiration 15 17 Pulse 63 69 Pulse Source Pulse Oximeter Pulse Oximeter Pulse Oximetry (%) 99 100 Oxygen Delivery Method Room Air Room Air Comment Pre-op Post-op Intake Visit Reasons: BILATERAL L4, L5 TFESI Allergies No Known Allergies [No Known Allergies*] Allergy (Verified 08/30/24 08:16) Medication List - Last Reconciled 08/30/24 by Iman Harrison triazolam 0.25 mg PO BEDTIME PRN 30 days [facility] Medical History Recurrent major depression resistant to treatment Arthralgia Raynauds disease Anemia Anemia Arthritis Surgical History No history of previous surgery Family History Mother No problems noted. Father No problems noted. Social History Household Members: Spouse Housing: House Alcohol intake: current Alcohol intake frequency: holidays/special occasions only Patient Tobacco Use Status: Never used Tobacco e-Cigarette/Vaping Use: Never Used Second Hand Smoke Exposure: No service: No Current occupational status: employed Cognitive needs: No Hearing needs: No Vision needs: No Physical Exam Vital Signs: Last Vital Signs Pulse 69 08/30/24 08:15 Resp 17 08/30/24 08:15 BP 141/80 H 08/30/24 08:15 Pulse Ox 100 08/30/24 08:15 Oxygen Delivery Method Room Air 08/30/24 08:15 Assessment & Plan Assessment & Plan (1) Lumbar spondylosis: Code(s): M47.816 - Spondylosis without myelopathy or radiculopathy, lumbar region Category: Medical (2) Lumbar spinal stenosis: Code(s): M48.061 - Spinal stenosis, lumbar region without neurogenic claudication Category: Medical Qualifiers: Neurogenic claudication status: unspecified Qualified Code(s): M48.061 - Spinal stenosis, lumbar region without neurogenic claudication (3) Lumbar radiculopathy: Code(s): M54.16 - Radiculopathy, lumbar region Category: Medical Plan: Transforaminal epidural steroid injection bilateral L4-5. The patient came to the operating room after obtaining informed consent. The risk of the procedure were delineated as risk of bleeding infection peripheral nerve damage epidural hematoma spinal cord damage epidural abscess and headache. The patient was positioned on the operating table prone with pillow under the abdomen. Time-out was performed delineating correct side and site of the proce dure minimally that of the patient need of antibiotics risk of fire the patient participated in time-out procedure. The patient's lower back was prepped with ChloraPrep and draped with sterile utility towels. C-arm was brought over the operating field and sq picture of L4 vertebra was delineated on the screen. C-arm was tilted 30 degrees to the right to demonstrate most prominent image of the pedicle of L4 on the right. 3 mm below the lowest point of the pedicle projection to the skin was chosen starting point of the injection. 22 gauge 5 in needle was inserted through the skin and started to advance to foramina on anterior posterior and lateral as well oblique views. The needle was advanced in tunnel vision fashion. One on lateral view the needle entered the most posterior and superior portion of the foramen injection of the contrast was performed delineating anterior epidural space of the contrast. After that treatment solution containing 3 mL of preservative- free lidocaine 1% mixed with Kenalog 40 mg was injected into the needle. Upon completion of the injection the procedure was repeated on the left side in mirroring fashion. Upon completion of the injections sterile Band-Aids were applied. The patient tolerated the procedure well he was awakened and taken out of the injection site to the recovery room where he recovered uneventfully. Plan Lumbar spine imaging to assess degree of degenerative changes prior to interventional treatments. For ongoing radicular pain, we will plan for Bilateral L4-L5 TFESI with local and fluoroscopy. For ongoing axial low back pain will tentatively plan for diagnostic bilateral L3-L4 DR L5 medial branch blocks with local and fluoroscopy. If he has significant relief from the diagnostic blocks for his axial low back pain, will consider either therapeutic injections, Sprint PNS or RFA depending on his preference. Informational pamphlets provided to patient. Justification for interventional therapy: ? Patient with average pain > 6/10 ? Patient has exhausted conservative therapy, NSAIDs, home exercie program The risks, consequences, alternatives, and benefits of various treatment options were discussed with the patient in great detail, including conservative management, injections and procedures. Orders: Orders FL guidance in treatment room Today M47.816 - Spondylosis without myelopathy or radiculopathy, lumbar region, M54.16 - Radiculopathy, lumbar region Coding Level of Care Code Procedure Only Diagnoses Lumbar spondylosis M47.816 Spinal stenosis of lumbar region, unspecified whether neurogenic claudication present M48.061 Neurogenic claudication status: unspecified Lumbar radiculopathy M54.16
[2024-08-30 08:15] VITALS: BP 141/80; PULSE 69; RESP 17; O2SAT 100
== END 2024-08-30 08:14 | disposition home or self-care (01) ==
PROVIDERS: PCP Nurse Practitioner Family; Visit Provider Anesthesiology
DX: M54.16 Radiculopathy, lumbar region (principal)
CPT/HCPCS: 64483

== ENCOUNTER 2024-09-12 09:55 | Outpatient (AMB) | payer BC, SELFPAY ==
[2024-09-12 09:57] VITALS: BP 120/74; PULSE 75; O2SAT 98; BMI 26.0
--- NOTE | 2024-09-12 09:57 | A.OFFPC_ITS ---
Vital Signs 09/12/24 09:57 Height 5 ft 7 in Weight 166 lb BMI 26.0 BP 120/74 Blood Pressure Location Rt brachial Position Sitting Pulse 75 Pulse Source Pulse Oximeter Pulse Oximetry (%) 98 Intake Visit Reasons: Rsched from 09/26 6M Follow Up Intake Note: pt is here for 6 month follow up International Account Executive Required: No Accompanied by: Self / Same As Patient Allergies No Known Allergies [No Known Allergies*] Allergy (Verified 09/12/24 09:57) Medication List - Last Reconciled 09/12/24 by Ha Bermudez, [facility] triazolam 0.25 mg PO BEDTIME PRN 30 days Tobacco use date assessed: 03/30/24 Fall risk assessment: No Falls in past year Last assessed Fall Risk: 09/12/24 Dental Screening Dental Screen Date: 03/30/24 HPI Rsched from 09/26 6M Follow Up HPI Details Pt has a hx of severe depression. He has tried several treatments for this in the past with no improvement. Pt reports that the only treatment that helped was ketamine. Will have team speak with pt. Pt uses triazolam for insomnia. Denies any SI and HI. [facility] Medical History Recurrent major depression resistant to treatment Arthralgia Raynauds disease Anemia Anemia Arthritis Surgical History No history of previous surgery Family History Mother No problems noted. Father No problems noted. Social History Household Members: Spouse Housing: House Alcohol intake: current Alcohol intake frequency: holidays/special occasions only Patient Tobacco Use Status: Never used Tobacco e-Cigarette/Vaping Use: Never Used Second Hand Smoke Exposure: No service: No Current occupational status: employed Cognitive needs: No Hearing needs: No Vision needs: No Questionnaire Thrive Questionnaire Date Thrive assessed: 09/12/24 I am a: Patient What is your living situation today?: I have a steady place to live Within the past 12 months, did the food you bought not last and you didn't have the money to get more?: I choose not to answer this question Within the past 12 months, did you worry whether your food would run out before you got money to buy more?: I choose not to answer this question Do you have trouble paying for medicines?: No Do you have trouble getting transportation to medical appointments?: No Do you have trouble paying your heating and electricity bill?: No Do you have trouble taking care of your child, family member or friend?: No Do you have trouble with day-to-day activities such as bathing, preparing meals, shopping, managing finances, etc.?: No Are you currently unemployed and looking for a job?: No Are you interested in more education?: No Please select the resources that you would like help with: None Currently or been in a relationship where the following occur: No concerns reported THRIVE Score: 0 AUDIT C Alcohol Use Questionnaire (AUDIT-C) 1. How often do you have a drink containing alcohol?: Never 3. How often do you have six or more drinks on one occasion?: Never Total Score: 0 Score Reviewed/Action Taken: Yes BAIRON-7 AMB Questionnaire BAIRON-7 Date BAIRON - 7 assessed: 09/12/24 Feeling nervous, anxious, or on edge: 1 = Several days Not being able to stop or control worryin = Several days Worrying too much about different things: 1 = Several days Trouble relaxin = Several days Being so restless that it is hard to sit still: 1 = Several days Becoming easily annoyed or irritable: 1 = Several days Feeling afraid as if something awful might happen: 1 = Several days Total BAIRON-7 score (0-4 normal; 5-9 mild; 10-14 moderate; 15-21 severe): 7 Source: Developed by Drs. Ant Mccurdy, Kecia Diallo, Denton Rosales and colleagues, with an educational [place] from [employer]. BAIRON-7 Assessment Billing BAIRON-7 Assessment Tool: BAIRON-7 Assessment 67378 Review of Systems Const Reports as per HPI Physical exam (Primary Care) Vital Signs: Last Vital Signs Pulse 75 09/12/24 09:57 BP 120/74 09/12/24 09:57 Pulse Ox 98 09/12/24 09:57 BMI result Body Mass Index 26.0 Tobacco/Smoking Status: Tobacco use Status Tobacco use date assessed 03/30/24 09/12/24 10:00 Patient Tobacco Use Status Never used Tobacco 09/12/24 10:00 e-Cigarette/Vaping Use Never Used 09/12/24 10:00 Thrive Assessment: Date of Thrive Assessment Date Thrive assessed 09/12/24 09/12/24 10:00 Currently or been in a relationship where the following occur: No concerns reported Const General: cooperative Orientation/consciousness: patient oriented x3 Resp Effort & Inspection: normal respiratory effort Auscultation: clear to auscultation bilaterally Cardio Rate: regular rate Rhythm: regular rhythm Heart sounds: S1 normal heart sound present and S2 normal heart sound present Neuro General: patient oriented x3 Psych Appearance: grossly normal Mental Status: mental status grossly normal Speech and movement: Normal speech and movement present Affect: normal affect Attitude: cooperative Thought process: Normal thought process present Thought content: Normal thought content present Insight: Good insight present (Psych) Judgement: Good judgement present (Psych) Coding Level of Care Code Est Pt Level 3 (45518) Diagnoses Recurrent major depression resistant to treatment F33.9 Insomnia G47.00 Additional Codes BAIRON-7 Assessment Billing - BAIRON-7 Assessment Tool: BAIRON-7 Assessment 55856 ([id number]) Assessment & Plan Assessment & Plan (1) Recurrent major depression resistant to treatment: Code(s): F33.9 - Major depressive disorder, recurrent, unspecified Category: Medical Plan: spoke with pt today, there is a place that does ketamine treatments, card with name of facility given to pt. (2) Insomnia: Code(s): G47.00 - Insomnia, unspecified Category: Medical Plan: refilling triazolam Plan The patient agreed to the use of a medical administrative specialist for this encounter. Scribed for ALEN Pimentel by Temi Escalera medical administrative specialist, on 09/12/2024 at 10:05 EST. Medications: Refilled triazolam 0.25 mg PO BEDTIME 30 days PRN 30 tabs 0RF sleep
== END 2024-09-12 11:40 | disposition home or self-care (01) ==
PROVIDERS: PCP Nurse Practitioner Family; Visit Provider Nurse Practitioner Family
DX: F33.9 Major depressive disorder, recurrent, unspecified (principal); G47.00 Insomnia, unspecified

== ENCOUNTER → 2024-09-12 09:55 | Outpatient (BNVA) | payer BC, SELFPAY | PROVIDERS: PCP Nurse Practitioner Family; Visit Provider Nurse Practitioner Family | DX: F33.9 Major depressive disorder, recurrent, unspecified (principal); G47.00 Insomnia, unspecified | CPT/HCPCS: 96127 ==

== ENCOUNTER 2024-09-13 10:26 | Outpatient (REF) | payer BC, SELFPAY ==
[2024-09-13 10:41] LABS: MANUAL DIFF FLAG NO
[2024-09-13 11:54] LABS: Basophils Percent Auto 0.4 % (0-2); Eosinophils Percent Auto 0.4 % (0-4); Hematocrit 39.1 % (42.0-52.0); Hemoglobin 13.6 g/dl (14.0-18.0); Imm Gran Abs Auto 0.04 X10*3/uL (0.00-0.03); Imm Gran Pct Auto 0.6 % (0.0-0.4); Immature Retic Fraction 12.8 % (2.3-13.4); Lymphocytes Absolute Auto 1.4 X10*3/uL (1.2-4.9); Lymphocytes Percent Auto 20.5 % (20-40); Mean Corpuscular HGB Conc 34.8 g/dl (31.0-36.0); Mean Corpuscular Hemoglobin 31.6 pg (27.0-33.0); Mean Corpuscular Volume 90.9 fL (80.0-98.0); Monocytes Absolute Auto 0.5 X10*3/uL (0.1-1.2); Monocytes Percent Auto 7.9 % (2-11); Neutrophils Absolute Auto 4.8 x10*3/uL (2.0-8.3); Neutrophils Percent Auto 70.2 % (45-73); Platelet Count 187 X10*3/uL (160-400); Red Cell Distribution Width 12.4 % (11.0-16.0); Retic HGB Equivalent 36.5 pg (30.0-35.0); Reticulocyte Percent 0.9 % (0.5-1.8); Reticulocytes Absolute 0.039 X10*6/uL (0.026-0.095); White Blood Count 6.9 X10*3/uL (4.8-10.8)
[2024-09-13 12:01] LABS: INTERNATIONAL NORM RATIO 0.9 (0.9-1.1); Prothrombin Time 9.9 SEC (10.9-12.4)
[2024-09-13 12:04] LABS: Partial Thromboplastin Time 29.1 SEC (26.0-36.8)
[2024-09-13 12:45] LABS: Alanine Aminotransferase 48 U/L (0-40); Albumin Level 4.2 g/dL (3.5-5.0); Alkaline Phosphatase 86 U/L (39-117); Anion Gap 11 (12-20); Aspartate Amino Transferase 28 U/L (5-37); Bilirubin Total 0.4 mg/dL (0.0-1.0); Blood Urea Nitrogen 19 mg/dL (9-16); Calcium 9.7 mg/dL (8.4-10.2); Carbon Dioxide 28 mmol/L (22-29); Chloride 105 mmol/L (96-108); Estimated Glomerular Filt Rate > 60; Ferritin 317 ng/mL (20-250); Glucose Random 100 mg/dL (60-115); Iron 106 mcg/dL (45-160); Lactate Dehydrogenase 224 U/L (118-273); Percent Iron Saturation 34 % (15-50); Potassium 4.9 mmol/L (3.3-5.1); Sodium 139 mmol/L (135-145); Total Iron Binding Capacity 308 mcg/dL (228-428); Unsaturated Iron Binding 202 ug/dL
[2024-09-13 12:55] LABS: Folate 13.4 ng/mL (> or = 4.0); Vitamin B12 536 pg/mL (200-900)
[2024-09-13 13:32] LABS: Appearance Urine Clear; Color Urine Yellow; Glucose Urine UA Negative (Negative); Leukocyte Esterase Urine Negative (Negative); Nitrite Urine Negative (Negative); PH 5.5 (5.0-9.0); Urine Blood Negative (Negative); Urine Ketones Negative (Negative); Urine Protein Negative (Neg-Trace)
[2024-09-16 10:54] LABS: Hematocrit 39.4 % (38.5-50.0); Hemoglobin 13.8 g/dL (13.2-17.1); MCH 32.3 pg (27.0-33.0); MCV 92.3 fL (80.0-100.0); RBC 4.27 Million/uL (4.20-5.80); RDW 12.4 % (11.0-15.0)
[2024-09-16 21:53] LABS: A. Phagocytphilium DNA,RT-PCR NOT DETECTED (NOT DETECTED); Babesia Microti DNA, RT-PCR NOT DETECTED (NOT DETECTED); Borrelia Miyamotoi,DNA RT-PCR NOT DETECTED (NOT DETECTED); E.Chaffeensis DNA RT-PCR NOT DETECTED (NOT DETECTED); Lyme(Borrelia ssp)DNA RT-PCR NOT DETECTED (NOT DETECTED)
[2024-09-18 15:38] LABS: Testosterone, Free 75.1 pg/mL (35.0-155.0); Testosterone, Total 383 ng/dL (250-1100)
== END 2024-09-13 10:27 | disposition home or self-care (01) ==
LOC: HO.LAB 10:26
PROVIDERS: PCP Nurse Practitioner Family; Visit Provider Nurse Practitioner Family
DX: Z00.00 Encounter for general adult medical examination without abnormal findings (principal); R23.3 Spontaneous ecchymoses; D64.9 Anemia, unspecified; R53.83 Other fatigue
CPT/HCPCS: 36415; 80053; 81003; 82607; 82728; 82746; 83020; 83540; 83615; 84402; 84403; 85014; 85018; 85025; 85041; 85045; 85610; 85730; 87468; 87469; 87478; 87484; 87798

== ENCOUNTER 2024-09-20 14:44 | Outpatient (AMB) | payer BC, SELFPAY ==
--- NOTE | 2024-09-20 14:47 | A.OFFVIS_ITS ---
Vital Signs 09/20/24 14:57 Height 5 ft 7 in Weight 159 lb 8 oz BMI 25.0 BP 149/70 H Blood Pressure Location Rt brachial Position Sitting Pulse 71 Pulse Source Pulse Oximeter Pulse Oximetry (%) 97 Oxygen Delivery Method Room Air Intake Visit Reasons: BILATERAL L4, L5 TFESI Intake Note: Pain today 11/11 Sap Analyst Required: No Accompanied by: Self / Same As Patient Allergies No Known Allergies [No Known Allergies*] Allergy (Verified 09/20/24 14:58) HPI Comments Details: Patient presents today to assess response to Bilateral L4-L5 TFESI on 08/30/[address] Castaneda. Patient reports ongoing 80% pain relief for his back and bilateral leg pain with improved daily functioning, mobility, sleep and social activities. He reports days of periodic muscle spasms in his thighs since injection. Reports chronic right knee pain for which he received cortisone injection through Rheumatology services with partial benefit. Currently, he rates his pain at 2/10. Denies any recent cough, cold, infection, fever, any significant changes in her medical history, medications or recent hospitalizations. Past Procedures: 08/30/24: Bilateral L4-L5 TFESI-80% ongoing pain relief 11/10/23: Bilateral L4-L5 TFESI-90% ongoing pain relief PRIOR: Pleasant 68 years old male presents today for initial evaluation of chronic low back pain with radiation to both legs. Denies any recent or past trauma, injury, or falls. Patient states his chronic pain has been worsening since his last COVID illness as well as effects of Raynaud's disease and polyarthralgia. He also see Rheumatology provider. 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 He has a good day today and rates his pain at 3/10 but on his usual working day his pain is rated at 6-8/10. Pain affects his daily activities, functioning, work, sleep, mood, walking and quality of life. Patient is interested in epidural steroid injection for his radicular symptoms. He denies previous spine surgery or injections. Patient had CT scan of lumbar spine in 2021 which showed at L4-L5, multifactorial degenerative changes result in suspected moderate to severe central canal stenosis, bilateral subarticular zone stenosis with mass effect on the traversing L5 nerve roots bilaterally, as well as moderate right and mild to moderate left foraminal stenosis with mass effect on the exiting right L4 nerve root. Patient cannot undergo MRI due to remaining piece of metal in his left side of neck due to an injury in the past. Patient denies any fever, abdominal or groin pain, weakness, foot drop, bladder or bowel dysfunction, or saddle anesthesia. Location Mid back, radiates bilateral legs in L4-L5 distribution, worse L5 Duration Chronic pain for many years Characteristics of symptom or complaint Aching, tiring, throbbing, exhausting, radiating, numbness Aggravating or associated factors Movements, bending forward, walking, getting up, standing, prolonged sit Relieving factors Tylenol and Naproxen prn, heat therapy Treatment Showbie, HEP, walking 10 miles almost daily PFSH Medical History Recurrent major depression resistant to treatment Arthralgia Raynauds disease Anemia Anemia Arthritis Surgical History No history of previous surgery Family History Mother No problems noted. Father No problems noted. Social History Household Members: Spouse Housing: House Alcohol intake: current Alcohol intake frequency: holidays/special occasions only Patient Tobacco Use Status: Never used Tobacco e-Cigarette/Vaping Use: Never Used Second Hand Smoke Exposure: No service: No Current occupational status: employed Cognitive needs: No Hearing needs: No Vision needs: No Review of Systems Const All systems reviewed & are unremarkable except as noted in HPI and below Physical Exam Vital Signs: Last Vital Signs Pulse 71 09/20/24 14:57 BP 149/70 H 09/20/24 14:57 Pulse Ox 97 09/20/24 14:57 Oxygen Delivery Method Room Air 09/20/24 14:57 BMI result Body Mass Index 25.0 General: Appears afebrile. Alert and oriented. Mood and affect appropriate. Follows and participates in conversation appropriately. Respiratory effort is unlabored. No cough. Able to transition from sit to stand unassisted. Ambulates with bilaterally normal heel strike and toe off. Back/Spine/Pelvis Cervical Spine: cervical ROM normal and No Cervical spine tenderness Thoracic/Lumbar Spine: thoracic and lumbar spine normal to inspection, No Thoracic/lumbar spine scar(s), Lasegue's sign negative, straight leg raise negative bilaterally, pain with thoraco-lumbar ROM (mild with facet loading and axial rotations), paraspinal muscle tenderness, thoraco-lumbar ROM limited, No thoracic spinal tenderness and lumbar spinal tenderness at L4 and at L5 Pelvis: no buttock tenderness Sacroiliac joints: bilaterally nontender Extrem General: Yes capillary refill normal, Yes no clubbing, cyanosis or edema and Yes no calf tenderness Results Reviewed Results Reviewed: CT LUMBAR SPINE WITHOUT CONTRAST 01/31/22 CLINICAL INFORMATION: Chronic right lower radiculopathy. FINDINGS: There are 5 nonrib-bearing lumbar-type vertebral bodies. Lumbar alignment is normal. There are no acute fractures and there are no acute subluxations. Large anterior right-sided bridging osteophyte at L5-S1 and smaller endplate osteophytes throughout the remainder of the lumbar spine. No suspicious intraosseous lesions. Vacuum phenomenon within the SI joints bilaterally. Right renal cyst. Bilateral perinephric stranding. Punctate nonobstructing calculus within the right kidney. L1-L2: Small annular disc bulge. Mild bilateral facet arthropathy. No appreciable central canal stenosis. Mild foraminal encroachment bilaterally. L2-L3: Diffuse annular disc bulge and bilateral facet arthropathy. No appreciable central canal stenosis. There is mild foraminal encroachment bilaterally. L3-L4: There is a diffuse annular disc bulge and there is moderate bilateral facet arthropathy and ligamentum flavum thickening. Findings in concert result in suspected moderate central canal stenosis, bilateral subarticular zone stenosis with possible mass effect on the traversing L4 nerve roots bilaterally, and mild bilateral foraminal encroachment. L4-L5: Diffuse annular disc bulge and bilateral facet arthropathy and ligamentum flavum thickening. Findings in concert result in suspected moderate to severe central canal stenosis, bilateral subarticular zone stenosis with mass effect on the traversing L5 nerve roots bilaterally, as well as moderate right and mild to moderate left foraminal stenosis with mass effect on the exiting right L4 nerve root. L5-S1: Diffuse disc osteophyte complex and bilateral hypertrophic facet arthropathy. There is no central canal stenosis. Severe bilateral foraminal stenosis with compression of the exiting L5 nerve roots bilaterally. IMPRESSION: - At L5-S1, multifactorial degenerative changes result in severe bilateral foraminal stenosis with compression of the exiting L5 nerve roots bilaterally. - At L4-L5, multifactorial degenerative changes result in suspected moderate to severe central canal stenosis, bilateral subarticular zone stenosis with mass effect on the traversing L5 nerve roots bilaterally, as well as moderate right and mild to moderate left foraminal stenosis with mass effect on the exiting right L4 nerve root. - At L3-L4, multifactorial degenerative changes result in suspected moderate central canal stenosis, bilateral subarticular zone stenosis with possible mass effect on the traversing L4 nerve roots bilaterally, and mild bilateral foraminal encroachment. Assessment & Plan Assessment & Plan (1) Lumbar spondylosis: Code(s): M47.816 - Spondylosis without myelopathy or radiculopathy, lumbar region Category: Medical (2) Lumbar radiculopathy: Code(s): M54.16 - Radiculopathy, lumbar region Category: Medical (3) Muscle spasm: Code(s): M62.838 - Other muscle spasm Category: Medical (4) Lumbar spinal stenosis: Code(s): M48.061 - Spinal stenosis, lumbar region without neurogenic claudication Category: Medical Qualifiers: Neurogenic claudication status: unspecified Qualified Code(s): M48.061 - Spinal stenosis, lumbar region without neurogenic claudication Plan Patient is status post repeat bilateral L4-L5 TFESI with ongoing 80% pain relief for his radicular back and leg pain. Patient is aware that he can not receive another injection in this area for another two-three months. Reports muscle spasms in his thighs and chronic right knee pain. Discussed treatments for knee pain, he had cortisone injection in the past with some benefit, will consider updating his knee xray in the near future. Script provided for magnesium glycinate for spasms. He prefers to avoid muscle relaxants. Side effects discussed with patient. All questions and concerns have been answered and patient agreed with the plan. Follow up as needed. Medications: New magnesium glycinate 200 mg (2 x 100 mg) PO DAILY 30 days 60 tabs 0RF muscle spasms M47.816 - Spondylosis without myelopathy or radiculopathy, lumbar region, M54.16 - Radiculopathy, lumbar region, M62.838 - Other muscle spasm Coding Level of Care Code Est Pt Level 3 (91191) Complex EM visit Add On G2211 Diagnoses Lumbar spondylosis M47.816 Lumbar radiculopathy M54.16 Muscle spasm M62.838 Spinal stenosis of lumbar region, unspecified whether neurogenic claudication present M48.061 Neurogenic claudication status: unspecified
[2024-09-20 14:57] VITALS: BP 149/70; PULSE 71; O2SAT 97; BMI 25.0
== END 2024-09-20 15:25 | disposition home or self-care (01) ==
PROVIDERS: PCP Nurse Practitioner Family; Visit Provider Nurse Practitioner Family
DX: M47.816 Spondylosis without myelopathy or radiculopathy, lumbar region (principal); M54.16 Radiculopathy, lumbar region; M62.838 Other muscle spasm; M48.061 Spinal stenosis, lumbar region without neurogenic claudication
CPT/HCPCS: 99213

== ENCOUNTER → 2024-09-20 14:44 | Outpatient (BNVA) | payer BC, SELFPAY | PROVIDERS: PCP Nurse Practitioner Family; Visit Provider Nurse Practitioner Family ==

== ENCOUNTER 2024-10-04 08:49 | Outpatient (REF) | payer BC, SELFPAY ==
[2024-10-04 11:39] LABS: HBc Num1 0.05 S/CO (0.00-0.79); HBsAGNum1 0.48 S/CO (0.00-0.99); Hepatitis A Antibody IgM 0.14 Index (0-0.79); Hepatitis B Core Antibody Nonreactive (Nonreactive); Hepatitis B Surface Antigen Negative (Negative); ~HepC Num1 0.13 S/CO (0.00-0.79); ~Hepatitis A Antibody IgM Nonreactive (Nonreactive); ~Hepatitis B Surface Antibody NONREACTIVE (Nonreactive); ~Hepatitis C Antibody Nonreactive (Nonreactive)
== END 2024-10-04 08:50 | disposition home or self-care (01) ==
LOC: HO.US 08:49
PROVIDERS: PCP Nurse Practitioner Family; Visit Provider Nurse Practitioner Family
DX: R74.8 Abnormal levels of other serum enzymes (principal)
CPT/HCPCS: 36415; 76700; 86704; 86706; 86709; 86803; 87340

== ENCOUNTER 2024-11-04 14:20 | Outpatient (AMB) | payer BC, SELFPAY ==
--- NOTE | 2024-11-04 14:29 | MHC.OFFVIS ---
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 Patient reports his finger is peri inward with out his splint. He mentions that his finger has been peri inwards for a couple months. Patient is going to [facility] and is unsure if it is helping his symptoms. Denies numbness and tingling. 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 Patient reports his finger is peri inward with out his splint. He mentions that his finger has been peri inwards for a couple months. Denies any partocular incident or injury that started his deformity. Patient is going to [facility] and is unsure if it is helping his symptoms. Denies numbness and tingling. [facility] Medical History (Updated 11/06/24 @ 16:17 by KATE Vora) Fatty liver Recurrent major depression resistant to treatment Arthralgia Raynauds disease Anemia Anemia Arthritis Surgical History No history of previous surgery Family History Mother No problems noted. Father No problems noted. 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 Neuro: Normal sensation of the tips of all digits of the right hand at this time Vascular: Cap refill brisk Pain: No tenderness to gentle palpation about the DIP joint of the right ring finger ROM: Patient is unable to flex at the DIP joint of the right ring finger due to the presence of a splint Patient is able to flex and extend all other digits and joints of the R hand without difficulty Skin: No lacerations or abrasions. General: No ecchymosis, erythema, or evidence of infection. Psych: Appears grossly normal Affect normal Attitude cooperative Assessment & Plan Assessment & Plan (1) Mallet deformity of right ring finger: Code(s): M20.011 - Mallet finger of right finger(s) Category: Medical Plan 1. Mallet finger of R RF Ongoing for approximately 2-3 months, has been splinted for 24 hours/day for 3 weeks Patient is educated about this condition Patient is educated about the typical treatment course At this time, the patient is educated that the first line treatment of a mallet finger is 24/7 splinting for 6 weeks, and he has already been doing this for 3 weeks Patient is advised that he should continue with this 24 hour a day splinting for a further 3 weeks, only removing after bathing and immediately replacing Patient should ensure the finger is held in extension when transferring into his splint Patient is amenable to this plan Patient will follow up in 3 weeks with me with AR in office for reassessment, sooner with any acute concerns. Coding Level of Care Code New Pt Level 3 (03541) Diagnoses Mallet deformity of right ring finger M20.011
== END 2024-11-04 14:50 | disposition home or self-care (01) ==
PROVIDERS: PCP Nurse Practitioner Family
DX: M20.011 Mallet finger of right finger(s) (principal)
CPT/HCPCS: 99203

== ENCOUNTER → 2024-11-04 14:20 | Outpatient (BNVA) | payer BC, SELFPAY | PROVIDERS: PCP Nurse Practitioner Family ==

== ENCOUNTER 2024-11-10 10:33 | Outpatient (AMB) | payer BC, SELFPAY ==
[2024-11-10 10:34] VITALS: BP 126/74; PULSE 42; BMI 26.0
--- NOTE | 2024-11-10 10:34 | A.OFFVIS_ITS ---
Vital Signs 11/10/24 10:34 Height 5 ft 7 in Weight 166 lb 0.129 oz BMI 26.0 BP 126/74 Blood Pressure Location Rt brachial Position Sitting Pulse 42 L Pulse Source Pulse Oximeter Intake Visit Reasons: SSc/OA/inj Intake Note: Patient last seen by Doctor Francisco Samuels on 05/11/24. Presents today for SSc/OA/injection follow up. 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 He states that he went to occupational therapy, he was told that he has mallet deformity of his right ring finger, he was asked to wear a splint regularly for about 4 weeks, he has an appointment in 2 weeks. He states that he will also see a hand surgeon at the time. It is not symptomatic. He states that he continues to have intermittent achiness especially with some numbness and pain going down in the inside of his right thigh. 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 He states that he has been under plenty of stress recently, his sister from ALS last week, his father is 102 and is dying, his son is in the [facility]. Two days ago he while in karate class, he states that he felt very warm, he went to sit down and passed out, he believes for 10 minutes, he did not hit his head, he denies any stool or urinary incontinence, he states that automotive lot attendant were called the took his vitals and he was told his vitals were normal, they suggested that he go to the ER but patient refused. He denies any heart rhythm abnormalities. Denies any headaches. States that he had a similar episode about 30 years ago. Initial history: This is a 67-year-old male who presents for evaluation of multiple joint pain. Patient states that he has had Raynaud's since his teens. His fingers change color to white blue and red. Denies ever having digital tip ulcers. States that over the last 1-2 years he has been having progressive joint pain especially in both thumbs, states that his fingers are swollen, ring on left ring finger is tight. She also states that he has bilateral hip pain as well as bilateral knee pain. Two years ago he had an EMG/NCV is no extremity showing acute on chronic her radiculopathy. 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 He is walking the hallways throughout the day. States that the majority of his pain in his legs and usually worse towards the end of the day. He has bilateral a pain that is worse in the morning and when standing up after sitting down. States that he does karate twice a week. States that he has history of depression for years but has become worse. Believes that his symptoms started a few months after COVID infection 1 year and half ago. He was evaluated by a police radio dispatcher at the [facility], Dr. Atkinson with diagnosed him with osteoarthritis and he received a steroid injection in his right thumb which provided 1-2 months relief COUNTS INCLUDE 234 BEDS AT THE [facility] Medical History Fatty liver Recurrent major depression resistant to treatment Arthralgia Raynauds disease Anemia Anemia Arthritis Surgical History No history of previous surgery Family History Mother No problems noted. Father No problems noted. 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 Cognitive needs: No Hearing needs: No Vision needs: No Review of Systems Card Reports syncope, Denies palpitations and Denies dyspnea Resp Denies dyspnea Musc Reports back pain, Reports arthralgias and Reports limited range of motion Neuro Reports syncope Endo Denies palpitations Physical Exam Vital Signs: Last Vital Signs Pulse 42 L 11/10/24 10:34 BP 126/74 11/10/24 10:34 BMI result Body Mass Index 26.0 Const General: cooperative, healthy appearing and comfortable Nutritional Appearance: overweight Orientation/consciousness: patient oriented x3 Limitations: no limitations HEENT Head: Yes normocephalic and Yes atraumatic Resp Effort & Inspection: normal respiratory effort and able to speak in complete sentences Cardio Rate: regular rate Rhythm: regular rhythm GI Inspection: No distended Palpation (GI): Soft to palpation and nontender Neuro General: patient oriented x3 Extrem Other: No active synovitis Bilateral knee crepitus Very few superficial bruises of right upper extremity No skin thickening Normal nailfold capillaroscopy Normal range of motion of both hands, elbows, shoulders without pain Assessment & Plan Assessment & Plan (1) Raynauds disease: Code(s): I73.00 - Raynaud's syndrome without gangrene Category: Medical Qualifiers: Raynaud?s-associated gangrene presence: without gangrene Qualified Code(s): I73.00 - Raynaud's syndrome without gangrene Plan: This is a 69-year-old male with history of Raynaud's dating back to his 20s who initially presented for evaluation of generalized fatigue and generalized body aches. Upon evaluation patient has mildly puffy fingers but no skin thickening. His labs showed a positive RNA polymerase 3 antibody. Mildly elevated CRP, mild anemia with normal iron studies. He does not fulfill criteria however for scleroderma or any other autoimmune rheumatic disease His Raynaud's symptoms are benign in nature. He does not have prolonged Raynaud's episodes, denies ever having any digital tip ulcers. Advised patient to continue with conservative measures for Raynaud's Patient has arthralgias but they do not seem to be inflammatory in nature. Symptoms are rather degenerative in nature at this time Patient took hydroxychloroquine approximately 1 month but stopped it due to dizziness and insomnia. With regards to his malignancy screening. Patient stated that he had at least 2 colonoscopies. Which were unremarkable. PSA normal PFT and 2D echo done 10/2023 to screen for ILD and PAH were unremarkable. Can repeat every 1-2 years Patient's symptoms are quite mild and he does not want to try any medications. Will continue to monitor patient clinically Follow-up in 1 year (2) Syncope: Code(s): R55 - Syncope and collapse Category: Medical Qualifiers: Syncope type: unspecified Qualified Code(s): R55 - Syncope and collapse Plan: Discussed that he needs some workup for syncope, he strongly believes it is stress related. He does not want to have any workup done. Advised patient to follow-up with his PCP. Plan I spent 26 minutes reviewing patient's chart, evaluating patient, counseling patient and documenting in the chart Coding Level of Care Code Est Pt Level 4 (60031) Diagnoses Raynaud's disease without gangrene I73.00 Raynaud?s-associated gangrene presence: without gangrene Syncope, unspecified syncope type R55 Syncope type: unspecified
== END 2024-11-10 10:59 | disposition home or self-care (01) ==
PROVIDERS: PCP Nurse Practitioner Family; Visit Provider Student in an Organized Health Care Education/Training Program
DX: I73.00 Raynaud's syndrome without gangrene (principal); R55 Syncope and collapse
CPT/HCPCS: 99214

== ENCOUNTER 2024-11-22 14:22 | Outpatient (AMB) | payer BC, SELFPAY ==
--- NOTE | 2024-11-22 14:34 | A.OFFVIS_ITS ---
Vital Signs 11/22/24 14:39 Height 5 ft 7 in Weight 166 lb BMI 26.0 Intake Visit Reasons: OV-Right ring finger mallet finger/pain Intake Note: Hero is a 69 year old right hand dominant male who presents today for a follow up of right ring mallet finger. Patient reports he is doing well, he continues to wear finger splint as instructed. He expresses being nervous to remove splint. Allergies No Known Allergies [No Known Allergies*] Allergy (Verified 11/22/24 14:39) HPI HPI OV-Right ring finger mallet finger/pain: Details: Hero is a 69 year old right hand dominant male who presents today for a follow up of right ring mallet finger. Patient reports he is doing well, he continues to wear finger splint as instructed. He expresses being nervous to remove splint. [facility] Medical History Fatty liver Recurrent major depression resistant to treatment Arthralgia Raynauds disease Anemia Anemia Arthritis Surgical History No history of previous surgery Family History Mother No problems noted. Father No problems noted. 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 Neuro: Normal sensation of the tips of all digits of the right hand at this time Vascular: Cap refill brisk Pain: No tenderness to gentle palpation about the DIP joint of the right ring finger ROM: Patient is unable to flex at the DIP joint of the right ring finger due to the presence of a splint Patient able tp hold the joint in extension after splint removal Patient is able to flex and extend all other digits and joints of the R hand without difficulty Skin: No lacerations or abrasions. General: No ecchymosis, erythema, or evidence of infection. Psych: Appears grossly normal Affect normal Attitude cooperative Assessment & Plan Assessment & Plan (1) Mallet deformity of right ring finger: Code(s): M20.011 - Mallet finger of right finger(s) Category: Medical Plan 1. Mallet finger of R RF Ongoing for approximately 2-3 months, has been splinted for 24 hours/day for 3 weeks Patient is educated about this condition Patient is educated about the typical treatment course Patient is educated that he can now switch to splinting the finger for 8 hours/day Patient can also begin working on gentle ROM of the finger, but should continue avoiding anything heavier than a cell phone lifting Patient is amenable to this plan Patient will follow up in 6 weeks with me with AR in office for reassessment, sooner with any acute concerns. Coding Level of Care Code Est Pt Level 3 (80511) Diagnoses Mallet deformity of right ring finger M20.011
[2024-11-22 14:39] VITALS: BMI 26.0
== END 2024-11-22 14:49 | disposition home or self-care (01) ==
PROVIDERS: PCP Nurse Practitioner Family
DX: M20.011 Mallet finger of right finger(s) (principal)
CPT/HCPCS: 99213

== ENCOUNTER → 2024-11-22 14:22 | Outpatient (BNVA) | payer BC, SELFPAY | PROVIDERS: PCP Nurse Practitioner Family ==

== ENCOUNTER 2025-01-03 14:32 | Outpatient (AMB) | payer BC, SELFPAY ==
[2025-01-03 14:34] VITALS: BMI 26.0
--- NOTE | 2025-01-03 14:34 | MHC.OFFVIS ---
Vital Signs 01/03/25 14:34 Height 5 ft 7 in Weight 166 lb BMI 26.0 Intake Visit Reasons: OV - Right Ring Mallet Finger Intake Note: Hero is a 69 year old right hand dominant male who presents today for a follow up of right ring mallet finger. Patient has been working on gentle ROM and has had some improvement. He denies any pain or discomfort, numbness or tingling. Allergies No Known Allergies [No Known Allergies*] Allergy (Verified 01/03/25 14:39) HPI HPI OV - Right Ring Mallet Finger: Details: Hero is a 69 year old right hand dominant male who presents today for a follow up of right ring mallet finger. Patient has been working on gentle ROM and has had some improvement. Patient has been compliant with wearing the splint for a minimum of 8 hours per day. The patient states he is unable to completely straight in the DIP joint of the right ring finger, but he is able to extend it enough to return fully to his normal daytime activities and is satisfied with his course of care. He denies any pain or discomfort, numbness or tingling. [facility] Medical History Fatty liver Recurrent major depression resistant to treatment Arthralgia Raynauds disease Anemia Anemia Arthritis Surgical History No history of previous surgery Family History Mother No problems noted. Father No problems noted. 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 Neuro: Normal sensation of the tips of all digits of the right hand at this time Vascular: Cap refill brisk Pain: No tenderness to gentle palpation about the DIP joint of the right ring finger ROM: Patient able tp hold the joint in extension Patient is able to flex and extend all other digits and joints of the R hand without difficulty Skin: No lacerations or abrasions. General: No ecchymosis, erythema, or evidence of infection. Psych: Appears grossly normal Affect normal Attitude cooperative Assessment & Plan Assessment & Plan (1) Mallet deformity of right ring finger: Code(s): M20.011 - Mallet finger of right finger(s) Category: Medical Plan 1. Mallet finger of R RF Ongoing for approximately 2-3 months, has been splinted for 24 hours/day for 3 weeks Patient is educated about this condition Patient is educated about the typical treatment course Patient is educated that he can discontinue wearing the splint Patient can also begin working on gentle ROM of the finger, but should continue avoiding anything heavier than a cell phone lifting for the next couple of weeks, gradually increasing to normal activity Patient is amenable to this plan Patient will follow up as needed with any acute concerns Coding Level of Care Code Est Pt Level 3 (87784) Diagnoses Mallet deformity of right ring finger M20.011
== END 2025-01-03 14:47 | disposition home or self-care (01) ==
PROVIDERS: PCP Nurse Practitioner Family
DX: M20.011 Mallet finger of right finger(s) (principal)
CPT/HCPCS: 99213

== ENCOUNTER 2025-01-19 10:27 | Outpatient (AMB) | payer BC, SELFPAY ==
--- NOTE | 2025-01-19 10:30 | A.OFFVIS_ITS ---
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 He has a history of degenerative changes primarily affecting the lumbar spine with significant central and foraminal stenosis with progressively worsening back pain. Previous treatments have included bilateral L4-L5 transforaminal epidural injections with temporary relief. The knee pain primarily affects the right knee, exacerbated by physical activity and alleviated by resting. The pain radiates from the lower back through the groin to the heel on the right side, encompassing a chronic, severe nature that impacts his sleep and daily functioning. Current pain management is limited to Tylenol, activity modifications, rest and heat therapy. The patient has a recent history of family bereavement which may contribute to increased mental stress, but this aspect is only ancillary to his physical complaints. Although he has attempted activity modifications, pain symptoms impede his previously active lifestyle. He has received cortisone injection through Rheumatology services with partial benefit in the past. Currently, he rates his pain at 2/10. Denies any recent cough, cold, infection, fever, any significant changes in his medical history, medications or recent hospitalizations. - Affect: Reports being frequently tired, possibly due to pain interference with sleep. Recent family bereavement and stress may impact psychological wellbeing. - Analgesia: Current use of Tylenol. Reports pain level generally around 7-8/10, reduced to 2/10 at times with treatment. - Adverse Effects: None reported from current medication regimen. - Activities of Daily Living: Pain significantly affects mobility and sleep, requiring adaptation of daily activities. - Aberrant Drug-Related Behaviors: None reported, compliant with medication use as prescribed. Past Procedures: 08/30/24: Bilateral L4-L5 TFESI-80% ongoing pain relief 11/10/23: Bilateral L4-L5 TFESI-90% ongoing pain relief PRIOR: Pleasant 68 years old male presents today for initial evaluation of chronic low back pain with radiation to both legs. Denies any recent or past trauma, injury, or falls. Patient states his chronic pain has been worsening since his last COVID illness as well as effects of Raynaud's disease and polyarthralgia. He also see Rheumatology provider. 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 He has a good day today and rates his pain at 3/10 but on his usual working day his pain is rated at 6-8/10. Pain affects his daily activities, functioning, work, sleep, mood, walking and quality of life. Patient is interested in epidural steroid injection for his radicular symptoms. He denies previous spine surgery or injections. Patient had CT scan of lumbar spine in 2021 which showed at L4-L5, multifactorial degenerative changes result in suspected moderate to severe central canal stenosis, bilateral subarticular zone stenosis with mass effect on the traversing L5 nerve roots bilaterally, as well as moderate right and mild to moderate left foraminal stenosis with mass effect on the exiting right L4 nerve root. Patient cannot undergo MRI due to remaining piece of metal in his left side of neck due to an injury in the past. Patient denies any fever, abdominal or groin pain, weakness, foot drop, bladder or bowel dysfunction, or saddle anesthesia. Location Mid back, radiates bilateral legs in L4-L5 distribution, worse L5 Duration Chronic pain for many years Characteristics of symptom or complaint Aching, tiring, throbbing, exhausting, radiating, numbness Aggravating or associated factors Movements, bending forward, walking, getting up, standing, prolonged sit Relieving factors Tylenol and Naproxen prn, heat therapy Treatment Couplewise arts, HEP, walking 10 miles almost daily [facility] Medical History Fatty liver Recurrent major depression resistant to treatment Arthralgia Raynauds disease Anemia Anemia Arthritis Surgical History No history of previous surgery Family History Mother No problems noted. Father No problems noted. 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 - Neurological: Occasionally describes pins and needles sensation in the right leg. - General: Reports feeling extremely tired and weight loss in recent months. All systems reviewed & are unremarkable except as noted in HPI and below Physical Exam Vital Signs: Last Vital Signs Pulse 68 01/19/25 10:35 BP 132/76 01/19/25 10:35 BMI result Body Mass Index 25.7 General: Appears afebrile. Alert and oriented. Mood and affect appropriate. Follows and participates in conversation appropriately. Respiratory effort is unlabored. No cough. Able to transition from sit to stand unassisted. Ambulates with bilaterally normal heel strike and toe off. Back/Spine/Pelvis Cervical Spine: cervical ROM normal and No Cervical spine tenderness Thoracic/Lumbar Spine: thoracic and lumbar spine normal to inspection, No Thoracic/lumbar spine scar(s), Lasegue's sign positive (right in L4-L5, left in L3-L4) bilateral and localized, pain with thoraco-lumbar ROM (mild to moderate pain with facet loading and axial rotations), paraspinal muscle tenderness, thoraco-lumbar ROM limited, No thoracic spinal tenderness and lumbar spinal tenderness (L4-S1) Pelvis: no buttock tenderness Sacroiliac joints: bilaterally nontender Extrem General: Yes capillary refill normal, Yes no clubbing, cyanosis or edema and Yes no calf tenderness Right lower extremity: knee Details: normal to inspection, tenderness Location: of the patella and of the medial joint line, normal ROM, knee ligament exam normal and crepitus; no swelling, no ecchymosis and no unusual warmth Left lower extremity: knee Details: normal to inspection, tenderness Location: of the medial joint line, normal ROM, knee ligament exam normal and crepitus; no ecchymosis and no unusual warmth Results Reviewed Results Reviewed: CT LUMBAR SPINE WITHOUT CONTRAST 01/31/22 CLINICAL INFORMATION: Chronic right lower radiculopathy. FINDINGS: There are 5 nonrib-bearing lumbar-type vertebral bodies. Lumbar alignment is normal. There are no acute fractures and there are no acute subluxations. Large anterior right-sided bridging osteophyte at L5-S1 and smaller endplate osteophytes throughout the remainder of the lumbar spine. No suspicious intraosseous lesions. Vacuum phenomenon within the SI joints bilaterally. Right renal cyst. Bilateral perinephric stranding. Punctate nonobstructing calculus within the right kidney. L1-L2: Small annular disc bulge. Mild bilateral facet arthropathy. No appreciable central canal stenosis. Mild foraminal encroachment bilaterally. L2-L3: Diffuse annular disc bulge and bilateral facet arthropathy. No appreciable central canal stenosis. There is mild foraminal encroachment bilaterally. L3-L4: There is a diffuse annular disc bulge and there is moderate bilateral facet arthropathy and ligamentum flavum thickening. Findings in concert result in suspected moderate central canal stenosis, bilateral subarticular zone stenosis with possible mass effect on the traversing L4 nerve roots bilaterally, and mild bilateral foraminal encroachment. L4-L5: Diffuse annular disc bulge and bilateral facet arthropathy and ligamentum flavum thickening. Findings in concert result in suspected moderate to severe central canal stenosis, bilateral subarticular zone stenosis with mass effect on the traversing L5 nerve roots bilaterally, as well as moderate right and mild to moderate left foraminal stenosis with mass effect on the exiting right L4 nerve root. L5-S1: Diffuse disc osteophyte complex and bilateral hypertrophic facet arthropathy. There is no central canal stenosis. Severe bilateral foraminal stenosis with compression of the exiting L5 nerve roots bilaterally. IMPRESSION: - At L5-S1, multifactorial degenerative changes result in severe bilateral foraminal stenosis with compression of the exiting L5 nerve roots bilaterally. - At L4-L5, multifactorial degenerative changes result in suspected moderate to severe central canal stenosis, bilateral subarticular zone stenosis with mass effect on the traversing L5 nerve roots bilaterally, as well as moderate right and mild to moderate left foraminal stenosis with mass effect on the exiting right L4 nerve root. - At L3-L4, multifactorial degenerative changes result in suspected moderate central canal stenosis, bilateral subarticular zone stenosis with possible mass effect on the traversing L4 nerve roots bilaterally, and mild bilateral foraminal encroachment. Assessment & Plan Assessment & Plan (1) Bilateral knee pain: Code(s): M25.561 - Pain in right knee; M25.562 - Pain in left knee Category: Medical (2) Lumbar spinal stenosis: Code(s): M48.061 - Spinal stenosis, lumbar region without neurogenic claudication Category: Medical Qualifiers: Neurogenic claudication status: unspecified Qualified Code(s): M48.061 - Spinal stenosis, lumbar region without neurogenic claudication (3) Lumbar spondylosis: Code(s): M47.816 - Spondylosis without myelopathy or radiculopathy, lumbar region Category: Medical (4) Lumbar radiculopathy: Code(s): M54.16 - Radiculopathy, lumbar region Category: Medical Plan I intend to conduct knee and lumbar spine diagnostic imaging to assess for further degeneration and assess current spinal neural integrity and compression. Treatment includes diclofenac potassium and continue Tylenol as needed, to provide more effective pain control. Avoid concurrent use of NSAIDs. If radi ological findings suggest knee and further lower spine deterioration, fluoroscopy-guided injections may be implemented for better outcomes. All questions and concerns have been answered and patient agreed with the plan. Follow up for xrays/CT scan results and sooner as needed. Patient was informed and verbally consented to the use of an ambient scribe for clinic note documentation during this visit. Orders: Orders CT lumbar spine wo IV con 01/19/25 M47.816 - Spondylosis without myelopathy or radiculopathy, lumbar region, M48.061 - Spinal stenosis, lumbar region without neurogenic claudication, M54.16 - Radiculopathy, lumbar region XR knee LT 3V 01/19/25 M25.561 - Pain in right knee, M25.562 - Pain in left knee XR knee RT 3V 01/19/25 M25.561 - Pain in right knee, M25.562 - Pain in left knee XR lumbar spine 4V min 01/19/25 M47.816 - Spondylosis without myelopathy or radiculopathy, lumbar region, M48.061 - Spinal stenosis, lumbar region without neurogenic claudication, M54.16 - Radiculopathy, lumbar region Medications: New diclofenac sodium Take it with food and full glass of water. Avoid Naproxen or Ibuprofen while taking this. 50 mg PO Q12H PRN 60 tabs 0RF pain 30 days M25.561 - Pain in right knee, M25.562 - Pain in left knee, M47.816 - Spondylosis without myelopathy or radiculopathy, lumbar region, M48.061 - Spinal stenosis, lumbar region without neurogenic claudication, M54.16 - Radiculopathy, lumbar region Patient Instructions: - Begin using diclofenac potassium as discussed, taking it with food. - Avoid combining it with naproxen or ibuprofen. - Tylenol can continue to be used cautiously if needed. - Undergo scheduled x-rays and CT scan. - Consider avoidance of high-impact activities such as karate and limit movements causing strain. - Promptly follow up based on imaging results for further evaluation. - Attend regular check-ups and update on pain management status. - Follow up with your PCP to address increased levels of fatigue, weight loss and consider recheck lab work with PCP. - Seek medical advice if pain significantly worsens or if new symptoms occur. Coding Level of Care Code Est Pt Level 4 (25783) Complex EM visit Add On G2211 Diagnoses Bilateral knee pain M25.561; M25.562 Spinal stenosis of lumbar region, unspecified whether neurogenic claudication present M48.061 Neurogenic claudication status: unspecified Lumbar spondylosis M47.816 Lumbar radiculopathy M54.16
[2025-01-19 10:35] VITALS: BP 132/76; PULSE 68; BMI 25.7
== END 2025-01-19 11:05 | disposition home or self-care (01) ==
LOC: HO.PMC 10:28
PROVIDERS: PCP Nurse Practitioner Family; Visit Provider Nurse Practitioner Family
DX: M25.561 Pain in right knee (principal); M25.562 Pain in left knee; M48.061 Spinal stenosis, lumbar region without neurogenic claudication; M47.816 Spondylosis without myelopathy or radiculopathy, lumbar region; M54.16 Radiculopathy, lumbar region
CPT/HCPCS: 99214

== ENCOUNTER 2025-01-19 10:27 | Outpatient (REF) | payer BC, SELFPAY ==
--- NOTE | ~2025-01-19 | XR_ITS ---
CLINICAL HISTORY: M48.061 - Spinal stenosis, lumbar region without neurogenic claudication Five views of the lumbar spine. COMPARISON: None FINDINGS: Five [id number] lumbar type vertebral bodies. Normal vertebral body alignment. Vertebral body heights are maintained. No evidence of acute vertebral body injury. Loss of disc space height at L5-S1. Facet joint arthrosis in the lower lumbar spine with neural foraminal narrowing most pronounced at L4-5 and L5-S1. Small marginal osteophytes along the upper lumbar spine and prominent anterior marginal osteophyte at L5-S1. No pars defects identified on oblique imaging. Visualized portions of the bones of the pelvis appear intact. Pelvic phleboliths present. IMPRESSION: 1. No radiographic evidence of acute injury to the lumbar spine. 2. Multilevel degenerative changes of the lumbar spine most pronounced at L5-S1. This document has been electronically signed by: Yosi Napier MD on 01/27/2025 16:53:36
--- NOTE | ~2025-01-19 | XR_ITS ---
CLINICAL HISTORY: M25.561 - Pain in right knee 3 view left knee Comparison: None Findings: No fractures or dislocations. No significant loss of joint space, osteophytes, or erosions. No joint effusion. No radiopaque foreign body. IMPRESSION: 1. No acute findings. This document has been electronically signed by: Raghav Oliva MD on 01/20/2025 08:12:03
--- NOTE | ~2025-01-19 | XR_ITS ---
CLINICAL HISTORY: M25.561 - Pain in right knee 3 view right knee Comparison: None Findings: Bones intact. No dislocations. No significant loss of joint space, osteophytes, or erosions. No joint effusion. No radiopaque foreign body. IMPRESSION: 1. No acute findings. This document has been electronically signed by: Raghav Oliva MD on 01/20/2025 08:12:10
== END 2025-01-19 10:28 | disposition home or self-care (01) ==
LOC: HO.XRAY 10:27
PROVIDERS: PCP Nurse Practitioner Family; Visit Provider Nurse Practitioner Family
DX: M51.372 Other intervertebral disc degeneration, lumbosacral region with discogenic back pain and lower extremity pain (principal); M25.561 Pain in right knee; M25.562 Pain in left knee; M48.07 Spinal stenosis, lumbosacral region; M48.061 Spinal stenosis, lumbar region without neurogenic claudication; M47.816 Spondylosis without myelopathy or radiculopathy, lumbar region; M54.16 Radiculopathy, lumbar region
CPT/HCPCS: 72110; 73562

== ENCOUNTER → 2025-01-19 11:11 | Outpatient (BNV) | payer BC, SELFPAY | PROVIDERS: PCP Nurse Practitioner Family; Visit Provider Specialist | DX: M25.562 Pain in left knee (principal); M25.561 Pain in right knee | CPT/HCPCS: 72110; 73562 ==

== ENCOUNTER 2025-03-14 09:36 | Outpatient (AMB) | payer BC, SELFPAY ==
--- NOTE | 2025-03-14 09:38 | MHC.OFFVIS ---
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 His low back pain has been persistent, with significant interference in daily activities and sleep, occasionally peaking at an 8/10. He was previously diagnosed with lumbar disc degeneration and bone spur at L5-S1. The pain often radiates to the right leg and minimally to the left, exacerbated by prolonged sitting, walking or certain physical activities. A CT scan was previously denied by insurance, leading to a physical therapy regimen, which he reports has worsened his condition after 4 sessions. He is attending physical therapy today as well. His neck pain, a newly reported symptom, is characterized by tightness and shooting pain, particularly when bending forward. Limitations caused by these symptoms affect daily functioning. His current medication regime offers only temporary pain relief. Patient reports ongoing bilateral knee pain, worse on the right with walking and climbing stairs, no relief with diclofenac sodium. Denies any bladder or bowel dysfunction, weakness, foot drop or saddle anesthesia. - Onset and Timing: Chronic low back pain present for an extended period; neck pain recently noted. - Quality and Character: Low back pain is sharp and shooting, radiating primarily to the right leg. Neck pain described as tightness with shooting characteristics. - Primary Location: Low back; neck. - Radiation: Right leg predominantly, with occasional left leg involvement; shoots up to head from neck. Bilateral knee pain, R>L. - Exacerbating Factors: Sitting, waking, physical therapy. - Relieving Factors: Diclofenac Sodium, topical patches, ointments, heating pads provide temporary relief. - Impact on Activities: Interferes with daily functioning and sleep; limits exercise and physical activity like karate. - Affect: Pain significantly impacts sleep and daily functioning. - Analgesia: Currently using Diclofenac Sodium 50 mg, occasional topical treatments. Pain levels fluctuate between 2-3 and peaking at 8. - Adverse Effects: Temporary relief, no reported side effects from medications used. - Activities of Daily Living: Pain inhibits exercise routines including karate and walking; therapy sessions have increased discomfort. - Aberrant Drug Related Behaviors: None reported. Past Procedures: 08/30/24: Bilateral L4-L5 TFESI-80% ongoing pain relief 11/10/23: Bilateral L4-L5 TFESI-90% ongoing pain relief PRIOR: Pleasant 68 years old male presents today for initial evaluation of chronic low back pain with radiation to both legs. Denies any recent or past trauma, injury, or falls. Patient states his chronic pain has been worsening since his last COVID illness as well as effects of Raynaud's disease and polyarthralgia. He also see Rheumatology provider. 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 He has a good day today and rates his pain at 3/10 but on his usual working day his pain is rated at 6-8/10. Pain affects his daily activities, functioning, work, sleep, mood, walking and quality of life. Patient is interested in epidural steroid injection for his radicular symptoms. He denies previous spine surgery or injections. Patient had CT scan of lumbar spine in 2021 which showed at L4-L5, multifactorial degenerative changes result in suspected moderate to severe central canal stenosis, bilateral subarticular zone stenosis with mass effect on the traversing L5 nerve roots bilaterally, as well as moderate right and mild to moderate left foraminal stenosis with mass effect on the exiting right L4 nerve root. Patient cannot undergo MRI due to remaining piece of metal in his left side of neck due to an injury in the past. Patient denies any fever, abdominal or groin pain, weakness, foot drop, bladder or bowel dysfunction, or saddle anesthesia. Location Mid back, radiates bilateral legs in L4-L5 distribution, worse L5 Duration Chronic pain for many years Characteristics of symptom or complaint Aching, tiring, throbbing, exhausting, radiating, numbness Aggravating or associated factors Movements, bending forward, walking, getting up, standing, prolonged sit Relieving factors Tylenol and Naproxen prn, heat therapy Treatment [email or web address], HEP, walking 10 miles almost daily [facility] Medical History Fatty liver Recurrent major depression resistant to treatment Arthralgia Raynauds disease Anemia Anemia Arthritis Surgical History No history of previous surgery Family History Mother No problems noted. Father No problems noted. 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 Denies any joint swelling in knees. - Neurological: Reports shooting pain to limbs from the back, occasionally involving the head from the neck. All systems reviewed & are unremarkable except as noted in HPI and below Neuro Denies Sensory deficit (Neuro) Physical Exam Vital Signs: Last Vital Signs Pulse 71 03/14/25 09:41 BP 141/82 H 03/14/25 09:41 Pulse Ox 100 03/14/25 09:41 Oxygen Delivery Method Room Air 03/14/25 09:41 BMI result Body Mass Index 25.7 General: Appears afebrile. Alert and oriented. Mood and affect appropriate. Follows and participates in conversation appropriately. Respiratory effort is unlabored. No cough. Able to transition from sit to stand unassisted. Ambulates with bilaterally normal heel strike and toe off. General: Yes no CVA tenderness Back/Spine/Pelvis Back: no CVA tenderness Cervical Spine: cervical ROM normal, cervical muscular tenderness and No Cervical spine tenderness Thoracic/Lumbar Spine: thoracic and lumbar spine normal to inspection, No Thoracic/lumbar spine scar(s), Lasegue's sign positive (Right worse than left) bilateral and localized, pain with thoraco-lumbar ROM (mild to moderate pain with facet loading and axial rotations), paraspinal muscle tenderness, thoraco-lumbar ROM limited, No thoracic spinal tenderness, lumbar spinal tenderness (L4-S1) and straight leg raise positive right at 50 degrees Pelvis: no buttock tenderness Sacroiliac joints: bilaterally nontender Neuro Gait exam (Neuro): Antalgic gait present and No Assistive device used Motor exam (neuro): 5/5 motor strength present throughout (RLE 4/5) and no tremor noted Sensory Exam: No Sensory deficit (Neuro) Deep tendon reflexes (DTR's): Right patellar reflex intensity grade: 1+, Left patellar reflex intensity grade: 2+, Right ankle reflex intensity grade: 1+ and Left ankle reflex intensity grade: 1+ Extrem General: Yes capillary refill normal, Yes no clubbing, cyanosis or edema and Yes no calf tenderness Right lower extremity: knee Details: normal to inspection, tenderness Location: of the patella and of the medial joint line, normal ROM, knee ligament exam normal and crepitus; no swelling, no ecchymosis and no unusual warmth Left lower extremity: knee Details: normal to inspection, tenderness Location: of the medial joint line, normal ROM, knee ligament exam normal and crepitus; no ecchymosis and no unusual warmth Results Reviewed Results Reviewed: XR lumbar spine 4V min 01/27/25 CLINICAL HISTORY: M48.061 - Spinal stenosis, lumbar region without neurogenic claudication Five views of the lumbar spine. COMPARISON: None FINDINGS: Five yaw-[id number]-ojouccy lumbar type vertebral bodies. Normal vertebral body alignment. Vertebral body heights are maintained. No evidence of acute vertebral body injury. Loss of disc space height at L5-S1. Facet joint arthrosis in the lower lumbar spine with neural foraminal narrowing most pronounced at L4-5 and L5-S1. Small marginal osteophytes along the upper lumbar spine and prominent anterior marginal osteophyte at L5-S1. No pars defects identified on oblique imaging. Visualized portions of the bones of the pelvis appear intact. Pelvic phleboliths present. IMPRESSION: 1. No radiographic evidence of acute injury to the lumbar spine. 2. Multilevel degenerative changes of the lumbar spine most pronounced at L5-S1. XR knee RT 3V 01/19/25 Findings: Bones intact. No dislocations. No significant loss of joint space, osteophytes, or erosions. No joint effusion. No radiopaque foreign body. IMPRESSION: 1. No acute findings. XR knee LT 3V 01/19/25 Findings: No fractures or dislocations. No significant loss of joint space, osteophytes, or erosions. No joint effusion. No radiopaque foreign body. IMPRESSION: 1. No acute findings. Assessment & Plan Assessment & Plan (1) Lumbar spinal stenosis: Code(s): M48.061 - Spinal stenosis, lumbar region without neurogenic claudication Category: Medical Qualifiers: Neurogenic claudication status: unspecified Qualified Code(s): M48.061 - Spinal stenosis, lumbar region without neurogenic claudication (2) Lumbar spondylosis: Code(s): M47.816 - Spondylosis without myelopathy or radiculopathy, lumbar region Category: Medical (3) Lumbar radiculopathy: Code(s): M54.16 - Radiculopathy, lumbar region Category: Medical (4) Muscle spasm: Code(s): M62.838 - Other muscle spasm Category: Medical (5) Bilateral knee pain: Code(s): M25.561 - Pain in right knee; M25.562 - Pain in left knee Category: Medical (6) Vertebrogenic low back pain: Code(s): M54.51 - Vertebrogenic low back pain Category: Medical Plan The plan involves continuing with physical therapy sessions while re-requesting the denied lumbar spine CAT scan with marked urgency. A Medrol pack aims to target inflammation effectively, complemented by Celebrex intended for knee symptom relief. Avoidance of other NSAIDs and preferential use of Tylenol will be enforced to manage the inflamed state of knee pain. Muscle relaxants prescribed at a bid frequency will aid in managing associated neck symptoms. Advancement of insurance discussions will occur, ensuring further diagnostic imaging approval, with options for escalated evaluation and possible surgical consideration if conservative management fails. All questions and concerns have been answered and patient agreed with the plan. Follow up for CT scan results and sooner as needed. Patient was informed and verbally consented to the use of an ambient scribe for clinic note documentation during this visit. Medications: New methocarbamol 750 mg PO Q8H 30 days PRN 60 tabs 0RF muscle spasm M47.816 - Spondylosis without myelopathy or radiculopathy, lumbar region, M54.16 - Radiculopathy, lumbar region, M62.838 - Other muscle spasm methylprednisolone (Medrol (Ryan)) PO PER PKG DIR 21 ea 0RF pain M47.816 - Spondylosis without myelopathy or radiculopathy, lumbar region, M48.061 - Spinal stenosis, lumbar region without neurogenic claudication, M54.16 - Radiculopathy, lumbar region celecoxib (Celebrex) Take it with food and full glass of water. Avoid other NSAIDs. 200 mg PO BID PRN 60 caps 0RF pain M25.561 - Pain in right knee, M25.562 - Pain in left knee Discontinued diclofenac sodium Take it with food and full glass of water. Avoid Naproxen or Ibuprofen while taking this. Discontinued Reason: Doctor's Order 50 mg PO Q8H 30 days PRN 90 tabs 0RF pain M25.561 - Pain in right knee, M25.562 - Pain in left knee, M47.816 - Spondylosis without myelopathy or radiculopathy, lumbar region, M48.061 - Spinal stenosis, lumbar region without neurogenic claudication, M54.16 - Radiculopathy, lumbar region Coding Level of Care Code Est Pt Level 4 (84554) Complex EM visit Add On G2211 Diagnoses Spinal stenosis of lumbar region, unspecified whether neurogenic claudication present M48.061 Neurogenic claudication status: unspecified Lumbar spondylosis M47.816 Lumbar radiculopathy M54.16 Muscle spasm M62.838 Bilateral knee pain M25.561; M25.562 Vertebrogenic low back pain M54.51
[2025-03-14 09:41] VITALS: BP 141/82; PULSE 71; O2SAT 100; BMI 25.7
== END 2025-03-14 10:04 | disposition home or self-care (01) ==
LOC: HO.PMC 09:37
PROVIDERS: PCP Nurse Practitioner Family; Visit Provider Nurse Practitioner Family
DX: M48.061 Spinal stenosis, lumbar region without neurogenic claudication (principal); M47.816 Spondylosis without myelopathy or radiculopathy, lumbar region; M54.16 Radiculopathy, lumbar region; M62.838 Other muscle spasm; M25.561 Pain in right knee; M25.562 Pain in left knee; M54.51 Vertebrogenic low back pain
CPT/HCPCS: 99214

== ENCOUNTER 2025-03-21 09:00 | Outpatient (RCR) | payer BC, SELFPAY ==
--- NOTE | 2025-02-17 11:48 | MHC.PT.EP ---
[facility] [place] Office [place] Office [place] Office [address] [phone] F: [phone] F: [phone] F: [phone] F: [phone] Physical Therapy Plan of Care Date of Evaluation: 02/17/25 Date of Surgery: Diagnosis: SPINAL STENOSIS, LUMBAR REGION, SPONDYLOSIS Assessment: 43 YO MALE REF TO PT WITH A DX OF LUMBAR SPINAL STENOSIS, SPONDYLOSIS WITH Rt LE RADICULAR SXS TO HIS Rt HEEL. 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 OBJECTIVELY, THE Pt HAS (+) LUMBOPELVIC ASYMM/ LLI AND MILD SCOLIOSIS, DECR POSTURAL AWARENESS, LIMITED HS/ HIP FLEXIB, DECR TRUNK EXT/ LAT FLEX Rt/ ROTAT, MORE SENSORY SXS VS MOTOR, AND CONSTANT PAIN RANGING FROM 2-> 7/10. FUNCTIONALLY, THER Pt NOTES DIFFIC SLEEPING, HE PERFORMS HIS ADLs DESPITE HIS PAIN- LIMITED FUNCTIONAL SQUAT. THE Pt AGREES W PT POC AND WE WILL PROCEED ACCORDINGLY , ADDRESSING THE ABOVE FINDINGS. Frequency and Duration: The patient will be seen 2 x WK x 5 WKS Short Term Goals: *DECR LBP TO 2-3/10 AND Rt LE RADIC SXS DECR BY 75% *Pt INDEP W SELF POSTURAL CORRECTION AND BODY MECHANICS *INITIATE HEP/ IMPROVE HIP FLEXIB, CORE ENGAGEMENT-> PROMOTE LUMBOPELVIC STAB/ SYMM Generator Worker Goals: *Pt INDEP W HEP AND SELF SX MGMT TECHN *Pt DEMON WFL FUNCTIONAL SQUAT AND 2:2 SIMUL ADLs W APPROP BODY MECH *Pt PERF REG ADLs, FITNESS, SLEEP W/O LBP INFLUENCE *IMPROVED OSWESTRY, AT EVAL , Treatment Plan: Modalities to reduce pain, spasms and effusion. Manual therapy to restore motion and function. Therapeutic exercise to improve strength and flexibility. Neuromuscular re-education for posture and balance. Therapeutic activities to return to functional activities of daily living. Electronically signed by: JERALD BLACKWOOD,PT Please sign and return to therapist. Thank you for your referral.
--- NOTE | 2025-04-06 07:31 | MHC.PT.DC ---
[facility] [place] Office [place] Office [place] Office [address] [phone] F: [phone] F: [phone] F: [phone] F: [phone] Physical Therapy Discharge Report Diagnosis: SPINAL STENOSIS, LUMBAR REGION, SPONDYLOSIS Date of Surgery: Date of Evaluation: 02/17/25 Date of Discharge: 04/06/25 Treatments to Date: 5 Cancellations to Date: 3 No Shows to Date: Discharge Status: Improved Function Patient Elected to Stop Discharge Summary: OBJECTIVELY LISANDRO PROGRESSED IN PT WITH IMPROVED CORE ENGAGEMENT -> REDUCING LUMBOPELVIC INSTABILITY. HE DID NOT ATTEND HIS LAST SCHED APPTS, HE HAS A HEP - A FORMAL REASSESSMENT WAS THERFORE UNABLE TO OCCUR- HE IS D/C FROM PT THIS DATE. Electronically signed by: JERALD BLACKWOOD,PT Please sign and return to therapist. Thank you for your referral.
== END 2025-04-06 07:52 | disposition home or self-care (01) ==
LOC: HO.PT 09:00
PROVIDERS: PCP Nurse Practitioner Family; Visit Provider Nurse Practitioner Family
DX: M48.061 Spinal stenosis, lumbar region without neurogenic claudication (principal); M47.816 Spondylosis without myelopathy or radiculopathy, lumbar region; M54.16 Radiculopathy, lumbar region
CPT/HCPCS: 97110; 97140; 97162

== ENCOUNTER 2025-04-06 07:39 | Emergency (ER) | payer BC, SELFPAY ==
--- NOTE | ~2025-04-06 | CT_ITS ---
EXAMINATION: CT LUMBAR SPINE WITHOUT CONTRAST CLINICAL INFORMATION: Right greater than left back pain radiating down leg and groin. COMPARISON: No prior CT. Lumbar plane films 01/19/2025. TECHNIQUE: Spiral CT imaging of the lumbar spine performed in axial plane without contrast. Multiplanar reformatted images were constructed from the axial data set. This CT examination was performed using dose optimization techniques as appropriate, variously including the following: *Automated exposure control *Adjustment of mA and/or kV according to patient size (this includes techniques or standardized protocols for targeted exams where dose is matched to indication/reason for exam; i.e. extremities or head) *Use of iterative reconstruction technique FINDINGS: There is no significant scoliosis. There is a normal lumbar lordosis. There is no significant subluxation. There is no fracture, compression deformity, or suspicious bone lesion. Severe degenerative disc changes present at L5-S1 with bridging ventral disc osteophyte and sclerosis of the endplates. Moderate degenerative disc changes present at L1-2, L2-3, with milder changes at L3-4 and L4-5. There are prominent disc osteophytes marginally at L1-L3. AXIAL DISC SPACE IMAGES: T12-L1: Mild facet degeneration. No significant central canal or neural foraminal narrowing. L1-L2: Shallow diffuse disc bulge present. Mild to gender facet changes bilaterally. There is mild central canal narrowing, mild left subarticular recess narrowing, and mild bilateral neural foraminal stenosis stenosis. L2-L3: Shallow diffuse disc bulge is present, slightly asymmetric to the right, and extending into both foraminal zones. This indents upon the ventral thecal sac and coupled with mild hypertrophic degenerative facet changes, results in mild central canal and mild right greater than left subarticular recess narrowing. There is mild to moderate bilateral neural foraminal narrowing. L3-L4: There is a diffuse concentric bulging disc present, moderate hypertrophic degenerative facet changes, posterior ligamentous thickening/infolding, with the combination of findings resulting in moderate central canal stenosis, moderate bilateral subarticular recess stenosis, and moderate bilateral neural foraminal stenosis. L4-L5: There is a concentric disc osteophytic bulge present, extending into the bilateral foraminal zones. There are moderate right greater than left hypertrophic degenerative facet changes with posterior ligamentous thickening/infolding. There is moderate central canal stenosis, moderate bilateral subarticular recess stenosis, and at least moderate right greater than left neural foraminal stenosis. L5-S1: Severe disc degeneration at this level. There is a diffuse disc osteophytic ridge complex present, which coupled with mild to moderate hypertrophic degenerative facet changes right greater than left, is resulting in mild to moderate central canal stenosis, moderate right greater than left subarticular recess stenosis, and severe bilateral neural foraminal encroachment. Mild degenerative arthritis is present in both SI joints. The imaged paravertebral and paraspinous soft tissues appear normal. There is a 3.8 cm simple cyst arising from the superior right kidney. The aorta is normal in caliber and course. There is no adenopathy. Imaged bowel structures, and urinary bladder appear normal. CT/CT lumbar spine wo IV con IMPRESSION: 1. There are no acute bony abnormalities of the lumbar spine. 2. There is moderate lumbar spondylosis, as discussed in detail above. Moderate central canal stenosis present at L3-4 and L4-5, with associated moderate bilateral subarticular recess stenosis and moderate bilateral neural foraminal stenosis. 3. There is severe bilateral neural foraminal encroachment at L5-S1. Electronically signed by: Winston Sparrow MD 04/06/2025 12:38 PM EDT
[2025-04-06 07:46] VITALS: BP 112/71; PULSE 76; RESP 18; TEMP 36.8; O2SAT 98; BMI 25.4
--- NOTE | 2025-04-06 09:43 | ED.BACK ---
HPI - Back Pain/Injury General Chief Complaint: Back Pain/Injury Stated Complaint: Back pain Time Seen by Provider: 04/06/25 09:42 Source: patient Mode of arrival: ambulatory Limitations: no limitations History of Present Illness ED Provider: Salty Ha PA-C HPI Narrative: 69-year-old male presents to the ER for evaluation of chronic lower back pain. He states he has had this pain for several months and he has been waiting to get a CAT scan with his primary care provider. He states he has had 2 courses of injections in his lower back and wants to see with the next treatment options are available for him. He is unable to get an MRI because of some metal in his neck. He reports the pain in his back is his lower back, worse on the right than the left. The pain radiates down his right hip, right leg to his foot. It also radiates to his groin. He has been walking with a ?tilt? due to the pain in the back. 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 He denies any weakness in the legs, bowel or bladder incontinence, saddle paresthesias. He is also get a CT scan with his primary care provider but can not get the insurance authorization. He has been on NSAIDs and tramadol with minimal improvement so he stopped taking them MD elicited complaint: back pain Pertinent past history: prior back pain Onset (ago): month(s) Timing: constant Severity: moderate Similar Symptoms Previously: Yes Quality: sharp and stabbing Location: lumbar spine Radiation: right upper leg and right leg below the knee Exacerbating factors: movement Relieving factors: none Context: unknown Related Data Previous Rx's ?Medication ?Instructions ?Recorded magnesium glycinate 100 mg (as 200 mg (2 x 100 mg) PO DAILY 09/20/24 glycinate) tablet muscle spasms 30 days #60 tabs triazolam 0.25 mg tablet 0.25 mg PO BEDTIME PRN sleep 30 01/16/25 days #30 tabs celecoxib 200 mg capsule (Celebrex) 200 mg PO BID PRN pain #60 caps 03/14/25 methocarbamol 750 mg tablet 750 mg PO Q8H PRN muscle spasm 30 03/14/25 days #60 tabs methylprednisolone 4 mg tablets in See Rx Instructions PO PER PKG DIR 03/14/25 a dose pack (Medrol (Ryan)) pain #21 ea naloxone 4 mg/actuation nasal 4 mg intranasal Q2M PRN opioid 03/28/25 spray (Narcan) overdose #2 ea tramadol 50 mg tablet 50 mg PO BID PRN pain (scale score 03/28/25 7-10) 10 days #20 tabs Allergies Allergy/AdvReac Type Severity Reaction Status Date / Time No Known Allergies Allergy Verified 04/06/25 07:48 [No Known Allergies*] Review of Systems Review of Systems: Yes all other systems are reviewed and are negative [facility] Past Medical History Medical History Fatty liver Recurrent major depression resistant to treatment Arthralgia Raynauds disease Anemia Anemia Arthritis Surgical History No history of previous surgery Family History Family History Mother No problems noted. Father No problems noted. 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 Oriented X3. No acute distress. HEENT: normal external inspection Neck: Normal inspection. CVS: Normal heart rate and rhythm. Respiratory: No respiratory distress. Back: normal inspection. Tenderness of the middle and lower lumbar spine, bilateral SI joints pain with spinal flexion and lateral rotation to the left Skin: Skin warm and dry. Normal skin color. Normal skin turgor. No rashes. Extremities: No lower extremity edema. No joint swelling. Neuro/psych: Oriented X 3. No motor deficit. No sensory deficit. CN II-XII intact. Normal speech and cognition. Antalgic gait Medical Decision Making Medical Decision Making MDM Narrative: 69-year-old male presents to the ER for evaluation of chronic back pain. He has no red flag symptoms of low back pain. He is here requesting a CT scan of his lumbar spine so that additional plans can be made to treat his pain. CT scan was performed and results provided to the patient. He is not looking for any new medications to start. He is going to take this information to his primary care doctor and asked for recommendations on next steps. Will referred or spinal specialist here as well. Stable for discharge home Differential Diagnosis Differential Diagnoses: The differential diagnosis associated with the presentation includes Inflammatory disorders, malignancy, trauma, osteoporosis, nerve root compression, radiculopathy, plexopathy, degenerative disc disease, disc herniation, spinal stenosis, sacroiliac joint dysfunction, facet joint injury, and less likely infection?like abscess or diskitis Admission/Observation Consideration of admission/observation: Escalation of care including admission/observation considered Independent Interpretation I performed an independent interpretation of an: CT Scan Interpretation: no visible lumbar fractures Radiology Impression Discussion of test interpretation with radiology: I have reviewed the radiologist's reading. Radiologist Impression: EXAMINATION: CT LUMBAR SPINE WITHOUT CONTRAST CLINICAL INFORMATION: Right greater than left back pain radiating down leg and groin. COMPARISON: No prior CT. Lumbar plane films 01/19/2025. TECHNIQUE: Spiral CT imaging of the lumbar spine performed in axial plane without contrast. Multiplanar reformatted images were constructed from the axial data set. This CT examination was performed using dose optimization techniques as appropriate, variously including the following: *Automated exposure control *Adjustment of mA and/or kV according to patient size (this includes techniques or standardized protocols for targeted exams where dose is matched to indication/reason for exam; i.e. extremities or head) *Use of iterative reconstruction technique FINDINGS: There is no significant scoliosis. There is a normal lumbar lordosis. There is no significant subluxation. There is no fracture, compression deformity, or suspicious bone lesion. Severe degenerative disc changes present at L5-S1 with bridging ventral disc osteophyte and sclerosis of the endplates. Moderate degenerative disc changes present at L1-2, L2-3, with milder changes at L3-4 and L4-5. There are prominent disc osteophytes marginally at L1-L3. AXIAL DISC SPACE IMAGES: T12-L1: Mild facet degeneration. No significant central canal or neural foraminal narrowing. L1-L2: Shallow diffuse disc bulge present. Mild to gender facet changes bilaterally. There is mild central canal narrowing, mild left subarticular recess narrowing, and mild bilateral neural foraminal stenosis stenosis. L2-L3: Shallow diffuse disc bulge is present, slightly asymmetric to the right, and extending into both foraminal zones. This indents upon the ventral thecal sac and coupled with mild hypertrophic degenerative facet changes, results in mild central canal and mild right greater than left subarticular recess narrowing. There is mild to moderate bilateral neural foraminal narrowing. L3-L4: There is a diffuse concentric bulging disc present, moderate hypertrophic degenerative facet changes, posterior ligamentous thickening/infolding, with the combination of findings resulting in moderate central canal stenosis, moderate bilateral subarticular recess stenosis, and moderate bilateral neural foraminal stenosis. L4-L5: There is a concentric disc osteophytic bulge present, extending into the bilateral foraminal zones. There are moderate right greater than left hypertrophic degenerative facet changes with posterior ligamentous thickening/infolding. There is moderate central canal stenosis, moderate bilateral subarticular recess stenosis, and at least moderate right greater than left neural foraminal stenosis. L5-S1: Severe disc degeneration at this level. There is a diffuse disc osteophytic ridge complex present, which coupled with mild to moderate hypertrophic degenerative facet changes right greater than left, is resulting in mild to moderate central canal stenosis, moderate right greater than left subarticular recess stenosis, and severe bilateral neural foraminal encroachment. Mild degenerative arthritis is present in both SI joints. The imaged paravertebral and paraspinous soft tissues appear normal. There is a 3.8 cm simple cyst arising from the superior right kidney. The aorta is normal in caliber and course. There is no adenopathy. Imaged bowel structures, and urinary bladder appear normal. CT/CT lumbar spine wo IV con IMPRESSION: 1. There are no acute bony abnormalities of the lumbar spine. 2. There is moderate lumbar spondylosis, as discussed in detail above. Moderate central canal stenosis present at L3-4 and L4-5, with associated moderate bilateral subarticular recess stenosis and moderate bilateral neural foraminal stenosis. 3. There is severe bilateral neural foraminal encroachment at L5-S1. External Record Review External record reviewed: Prior outpatient labs Prescription Management I considered prescription management with: Pain Medication Chronic Conditions Patient?s care impacted by: Other (low back pain) Social Determinants Patient?s care significantly limited by Social Determinants of Health including: Other Social Determinant of Health (insurance problems) Critical Care Time Critical Care Time Critical Care Time: No Discharge Plan Discharge Clinical Impression: Chronic lower back pain Patient Disposition: Home, Self-Care Instructions: Chronic Back Pain (DC) Additional Instructions: CT scan results below Follow up with your doctor If you develop new or worsening symptoms call 911 or come back to the ER for further evaluation. EXAMINATION: CT LUMBAR SPINE WITHOUT CONTRAST CLINICAL INFORMATION: Right greater than left back pain radiating down leg and groin. COMPARISON: No prior CT. Lumbar plane films 01/19/2025. TECHNIQUE: Spiral CT imaging of the lumbar spine performed in axial plane without contrast. Multiplanar reformatted images were constructed from the axial data set. This CT examination was performed using dose optimization techniques as appropriate, variously including the following: *Automated exposure control *Adjustment of mA and/or kV according to patient size (this includes techniques or standardized protocols for targeted exams where dose is matched to indication/reason for exam; i.e. extremities or head) *Use of iterative reconstruction technique FINDINGS: There is no significant scoliosis. There is a normal lumbar lordosis. There is no significant subluxation. There is no fracture, compression deformity, or suspicious bone lesion. Severe degenerative disc changes present at L5-S1 with bridging ventral disc osteophyte and sclerosis of the endplates. Moderate degenerative disc changes present at L1-2, L2-3, with milder changes at L3-4 and L4-5. There are prominent disc osteophytes marginally at L1-L3. AXIAL DISC SPACE IMAGES: T12-L1: Mild facet degeneration. No significant central canal or neural foraminal narrowing. L1-L2: Shallow diffuse disc bulge present. Mild to gender facet changes bilaterally. There is mild central canal narrowing, mild left subarticular recess narrowing, and mild bilateral neural foraminal stenosis stenosis. L2-L3: Shallow diffuse disc bulge is present, slightly asymmetric to the right, and extending into both foraminal zones. This indents upon the ventral thecal sac and coupled with mild hypertrophic degenerative facet changes, results in mild central canal and mild right greater than left subarticular recess narrowing. There is mild to moderate bilateral neural foraminal narrowing. L3-L4: There is a diffuse concentric bulging disc present, moderate hypertrophic degenerative facet changes, posterior ligamentous thickening/infolding, with the combination of findings resulting in moderate central canal stenosis, moderate bilateral subarticular recess stenosis, and moderate bilateral neural foraminal stenosis. L4-L5: There is a concentric disc osteophytic bulge present, extending into the bilateral foraminal zones. There are moderate right greater than left hypertrophic degenerative facet changes with posterior ligamentous thickening/infolding. There is moderate central canal stenosis, moderate bilateral subarticular recess stenosis, and at least moderate right greater than left neural foraminal stenosis. L5-S1: Severe disc degeneration at this level. There is a diffuse disc osteophytic ridge complex present, which coupled with mild to moderate hypertrophic degenerative facet changes right greater than left, is resulting in mild to moderate central canal stenosis, moderate right greater than left subarticular recess stenosis, and severe bilateral neural foraminal encroachment. Mild degenerative arthritis is present in both SI joints. The imaged paravertebral and paraspinous soft tissues appear normal. There is a 3.8 cm simple cyst arising from the superior right kidney. The aorta is normal in caliber and course. There is no adenopathy. Imaged bowel structures, and urinary bladder appear normal. CT/CT lumbar spine wo IV con IMPRESSION: 1. There are no acute bony abnormalities of the lumbar spine. 2. There is moderate lumbar spondylosis, as discussed in detail above. Moderate central canal stenosis present at L3-4 and L4-5, with associated moderate bilateral subarticular recess stenosis and moderate bilateral neural foraminal stenosis. 3. There is severe bilateral neural foraminal encroachment at L5-S1. Prescriptions: No Action triazolam 0.25 mg tablet 0.25 mg PO BEDTIME PRN (Reason: sleep) 30 Days Qty: 30 0RF magnesium glycinate 100 mg tablet 200 mg PO DAILY 30 Days Qty: 60 0RF methylprednisolone [Medrol (Ryan)] 4 mg tablets,dose pack See Rx Instructions PO PER PKG DIR Qty: 21 0RF Rx Instructions: PO PER PKG DIR methocarbamol 750 mg tablet 750 mg PO Q8H PRN (Reason: muscle spasm) 30 Days Qty: 60 0RF celecoxib [Celebrex] 200 mg capsule 200 mg PO BID PRN (Reason: pain) Qty: 60 0RF Rx Instructions: Take it with food and full glass of water. Avoid other NSAIDs. tramadol 50 mg tablet 50 mg PO BID PRN (Reason: pain (scale score 7-10)) 10 Days Qty: 20 0RF naloxone [Narcan] 4 mg/actuation spray,non-aerosol 4 mg intranasal Q2M PRN (Reason: opioid overdose) Qty: 2 0RF Rx Instructions: spray 1 dose into ONE nostril; alternate nostrils w each dose until help arrives Referrals: Jesus Littlejohn MD, PhD [Physician] - Print Language: [place]
[2025-04-06 10:02] VITALS: BP 124/78; PULSE 73; RESP 18; TEMP 37; O2SAT 98
[2025-04-06 12:52] VITALS: BP 124/78; PULSE 73; RESP 18; TEMP 37; O2SAT 98
== END 2025-04-06 12:53 | disposition home or self-care (01) ==
PROVIDERS: Emergency Provider Emergency Medicine; PCP Nurse Practitioner Family
DX: M54.50 Low back pain, unspecified (principal); R10.30 Lower abdominal pain, unspecified
CPT/HCPCS: 72131; 99284

== ENCOUNTER → 2025-04-06 09:56 | Outpatient (BNV) | payer BC, SELFPAY | PROVIDERS: Emergency Provider Emergency Medicine; PCP Nurse Practitioner Family; Visit Provider Radiology Diagnostic Radiology | DX: M47.816 Spondylosis without myelopathy or radiculopathy, lumbar region (principal); M99.63 Osseous and subluxation stenosis of intervertebral foramina of lumbar region; M48.062 Spinal stenosis, lumbar region with neurogenic claudication | CPT/HCPCS: 72131 ==

== ENCOUNTER 2025-04-11 12:51 | Outpatient (AMB) | payer BC, SELFPAY ==
--- NOTE | 2025-04-11 12:54 | A.SPINEOV_ITS ---
Intake Visit Reasons: [facility] ED 04/06/25 Intake Note: Mr. Duque is here today to F/u after ED for Right Low back pain. Staff Occupational Therapist Required: No Allergies No Known Allergies [No Known Allergies*] Allergy (Verified 04/11/25 12:59) Assessment & Plan Assessment & Plan (1) Lumbar radiculopathy: Code(s): M54.16 - Radiculopathy, lumbar region Category: Medical Plan Hero is a pleasant 69 year old male who comes in today for follow up after being seen in [facility] ED for chronic low back pain. He apparently is not able to get an MRI due to metal in his neck. He states that for the past few years he has had low back pain, however the course of past 1 year his pain has significantly w orsened. In his now to the point where it shoots down his right leg. When describing the pain he states it starts in his low back travels over his right hip, down the lateral aspect of his right leg terminating near the calf. He does report some tingling/burning associated with the pain but denies any significant numbness. He also states that he has pain shooting down his left lower extremity, in the exact same distribution as his right leg pain, however this is much more mild in comparison to his severe right leg pain. When asked what his worst pain overall his he says that by far his right leg is the worst. He states that increased activity exacerbates his pain. Sitting down to rest helps to alleviate his pain. He reports that the pain most recently has been waking him up at night, causing him to lose sleep. He is taking yfpc-ech-ililhgs medication such as Tylenol, pain patches, and pain gel/creams in an effort to help mitigate his symptoms. In addition to this he is prescr ibed Celebrex, tramadol, and methocarbamol. He just completed a course of physical therapy 2 weeks ago which he states was not helpful for him. He had 2 different sets of cortisone injections at L4-5 with our colleagues in pain management which provided about 80-90% relief for a few weeks after the injections before his pain returned in full force. PMH: History of vagus nerve stimulator placed for severe major depression, Raynaud's phenomenon, insomnia, bilateral knee osteoarthritis, Hx leukopenia, easy bruising, unspecified anemia. Social hx: The patient does not smoke, drinks socially 1-2 times per week, uses cannabis occasionally to help mitigate his pain. Medications: Celebrex, methocarbamol, triazolam, tramadol. Allergies: NKDA. Physical exam: The patient has about 4/5 strength with right-sided knee flexion and iliopsoas testing. The rest of his lower extremity strength is 5/5. He ambulates well with a slightly antalgic gait favoring the left hand side. He has no significant sensational deficits to light touch reported on examination. His reflexes are 2+ intact. (+) 3-4 beats of clonus in right ankle. (-) Hernandez's bilaterally, (-) Babinski's bilaterally, (-) bilateral straight leg raise. Imaging review: CT scan of the lumbar spine completed here at [facility] shows severe degenerative disc disease at L5-S1 with significant anterior auto fusion of L5-S1. There appears to be osseous overgrowth in the bilateral foramen at this level, significantly worse on the right-hand side. This is most likely causing severe right-sided foraminal stenosis. Impression: Hero is a pleasant 69-year-old male who comes in today for evaluation of low back pain and shooting pains into his bilateral lower extremities, right side worse than left. He reports this has been ongoing and worsening over the course of the past 1 year, but he has a history of fairly chronic low back pain which has bothered him for the last few years. I reviewed his CT scan which shows anterior auto fusion of the L5-S1 space, and there is fairly significant osteophyte growth into the right-sided foramen at L5. I believe this is likely the causative agent for his right leg pain. There is some narrowing of the left-sided foramen at this level as well. Typically this is something that we would want to better evaluate with MRI imaging, however the patient is unable to have an MRI due to the metal leads that were left in his neck after he had the vagus nerve stimulator removed. Given this, I believe that lumbar decompression of the L5-S1 space to free up the nerves in the foramen at L5 would be beneficial for the patient. We extensively discussed what this procedure would entail utilizing the spine models in office. I answered all questions related to lumbar decompression surgery with the patient during this encounter today. I will review his case with the attending neurosurgeon Dr. Pennings who ultimately make the surgical decision and update him thereafter. Thank you for allowing us to care for your patient. The total time spent with this visit with this patient was 45 minutes reviewing history, physical exam, MRI imaging review, and implementation of treatment plan or further diagnostic testing Eduardo Littlejohn MD,PhD [facility] Coding Level of Care Code New Pt Level 4 (73053) Diagnoses Lumbar radiculopathy M54.16
== END 2025-04-11 14:06 | disposition home or self-care (01) ==
LOC: HO.HNS 12:52
PROVIDERS: PCP Nurse Practitioner Family; Visit Provider Physician Assistant
DX: M54.16 Radiculopathy, lumbar region (principal)
CPT/HCPCS: 99204

== ENCOUNTER → 2025-04-11 12:51 | Outpatient (BNVA) | payer BC, SELFPAY | PROVIDERS: PCP Nurse Practitioner Family; Visit Provider Physician Assistant ==

== ENCOUNTER 2025-05-02 08:17 | Outpatient (AMB) | payer BC, SELFPAY ==
[2025-05-02 08:20] VITALS: BP 122/80; PULSE 71; O2SAT 94; BMI 26.0
--- NOTE | 2025-05-02 08:20 | A.OFFPC_ITS ---
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 Allergies No Known Allergies (No Known Allergies*) Allergy (Verified 05/02/25 08:42) Medication List - Last Reconciled 05/02/25 by MARTIR Curry-BROOKLYN celecoxib (Celebrex) 200 mg PO BID methocarbamol 750 mg PO Q8H PRN 30 days Tobacco use date assessed: 05/02/25 Fall risk assessment: No Falls in past year Last assessed Fall Risk: 05/02/25 Dental Screening Dental Screen Date: 05/02/25 Did you have a dental visit in the last 12 months?: Yes Did you have a dental problem in the last 6 months where you did not have access to dental care?: No Was dental information given to patient?: Patient has dentist HPI PE HPI Details History of Present Illness The patient is a 69-year-old male presenting with chronic lower back pain with radicular symptoms. The pain has been ongoing and is associated with radicular symptoms down the right lower extremity. He is scheduled for lumbar decompression surgery later this month and is looking forward to the procedure. The patient has a history of anxiety and depression. He denies any desire to see a therapist or psychiatrist and denies any suicidal or homicidal ideation. He also denies experiencing chest pain, blood in stool, constipation, or diarrhea. Preventative care measures were discussed, including the need for colon cancer screening, which the patient is aware of but currently not interested in pursuing a colonoscopy but will do a cologuard Health Maintenance - Colon cancer screening: agreed to [place] guard Social History Review of Systems - Neurological: Denies suicidal ideation , homicidal ideation - Cardiovascular: Denies chest pain - Gastrointestinal: Denies blood in stoo l, constipation, diarrhea Physical Exam General: Cooperative, healthy appearing, comfortable, no acute distress and well developed Orientation: Patient oriented x3 Limitations: No limitations Head: Normal to inspection Ears: Hearing grossly normal bilaterally Nose: Normal external nose present Face and sinus: Normal facial exam Eyes: Appearance normal, both eyes and all related structures Neck: Normal visual inspection and Yes full ROM Respiratory: Normal respiratory effort and able to speak in complete sentences. Clear to auscultation bilaterally Cardiovascular: Regular rate and rhythm. Normal S1 and S2 GI: Normal to inspection. Soft to palpation and nontender : Testicles without masses/lesions and no hernias appreciated Skin: No rashes or lesions noted Neuro: Patient oriented x3 Extremities: Normal to inspection Results Plan The patient is scheduled for lumbar decompression surgery to address his chronic lower back pain with radicular symptoms. He is encouraged to complete his laboratory tests in the near future, including a PSA test. Although he is due for colon cancer screening, he is currently not interested in pursuing i Discussion Notes I discussed with the patient the upcoming lumbar decompression surgery, emphasizing the potential benefits for his chronic lower back pain and radicular symptoms. We also reviewed the importance of completing his laboratory tests, including a PSA test, and discussed his overdue colon cancer screening, which he is currently not interested in pursuing. The patient expressed interest in receiving the COVID-19 vaccination, and I will proceed with ordering it for him. Patient Instructions - Prepare for your upcoming lumbar decom pression surgery. - Complete your laboratory tests, includ ing a PSA test, soon. - Consider scheduling your colon cancer screening when ready. - Receive the COVID-[address] ann[address] [facility] Medical History Fatty liver Recurrent major depression resistant to treatment Arthralgia Raynauds disease Anemia Anemia Arthritis Surgical History No history of previous surgery Family History Mother No problems noted. Father No problems noted. 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 1. Little interest or pleasure in doing things: more than half the days 2. Feeling down, depressed, or hopeless: more than half the days 3. Trouble falling or staying asleep, or sleeping too much: more than half the days 4. Feeling tired or having little energy: more than half the days 5. Poor appetite or overeating: more than half the days 6. Feeling bad about yourself - or that you are a failure or have let yourself or your family down: more than half the days 7. Trouble concentrating on things, such as reading the newspaper or watching television: more than half the days 8. Moving or speaking so slowly that other people could have noticed. Or the opposite - being so fidgety or restless that you have been moving around a lot more than usual: more than half the days 9. Thoughts that you would be better off or of hurting yourself in some way: more than half the days Total score: 18 Depression Screening Interpretation: Positive (denies any si or hi) Depression Screening Follow-up: Existing condition and Declines treatment Depression Screening Done: Yes 57447 - PHQ-9 Billing: Yes Source: Developed by Drs. Ant Mccurdy, Kecia Diallo, Denton Rosales and colleagues, with an educational brooklyn from [employer]. Thrive Questionnaire Date Thrive assessed: 05/02/25 I am a: Patient What is your living situation today?: I have a steady place to live Within the past 12 months, did the food you bought not last and you didn't have the money to get more?: Never true Within the past 12 months, did you worry whether your food would run out before you got money to buy more?: Never true Do you have trouble paying for medicines?: No Do you have trouble getting transportation to medical appointments?: No Do you have trouble paying your heating and electricity bill?: No Do you have trouble taking care of your child, family member or friend?: No Do you have trouble with day-to-day activities such as bathing, preparing meals, shopping, managing finances, etc.?: No Are you currently unemployed and looking for a job?: No Are you interested in more education?: No Please select the resources that you would like help with: None Currently or been in a relationship where the following occur: No concerns reported THRIVE Score: 0 AUDIT C Alcohol Use Questionnaire (AUDIT-C) 1. How often do you have a drink containing alcohol?: 2-3 times a week 2. How many drinks containing alcohol do you have on a typical day when you are drinking?: 1 or 2 3. How often do you have six or more drinks on one occasion?: Never Total Score: 3 Score Reviewed/Action Taken: Yes BAIRON-7 AMB Questionnaire BAIRON-7 Date BAIRON - 7 assessed: 05/02/25 Feeling nervous, anxious, or on edge: 1 = Several days Not being able to stop or control worryin = Several days Worrying too much about different things: 2 = More than half the days Trouble relaxin = More than half the days Being so restless that it is hard to sit still: 3 = Nearly every day Becoming easily annoyed or irritable: 2 = More than half the days Feeling afraid as if something awful might happen: 1 = Several days Total BAIRON-7 score (0-4 normal; 5-9 mild; 10-14 moderate; 15-21 severe): 12 Source: Developed by Drs. Ant Mccurdy, Kecia Diallo, Denton Rosales and colleagues, with an educational brooklyn from [employer]. BAIRON-7 Assessment Billing BAIRON-7 Assessment Tool: BAIRON-7 Assessment 20692 (denies any si or hi) Physical exam (Primary Care) Vital Signs: Last Vital Signs Pulse 71 05/02/25 08:20 BP 122/80 05/02/25 08:20 Pulse Ox 94 05/02/25 08:20 BMI result Body Mass Index 26.0 Tobacco/Smoking Status: Tobacco use Status Tobacco use date assessed 05/02/25 05/02/25 08:22 Patient Tobacco Use Status Never used Tobacco 05/02/25 08:22 e-Cigarette/Vaping Use Never Used 05/02/25 08:22 PHQ-9: PHQ-9 Score PHQ-9: Total score 18 05/02/25 08:26 Depression Screening Interpretation: Positive (denies any si or hi) Depression Screening Follow-up: Existing condition and Declines treatment Thrive Assessment: Date of Thrive Assessment Date Thrive assessed 05/02/25 05/02/25 08:26 Currently or been in a relationship where the following occur: No concerns reported Coding Level of Care Code Est Pt Prev Care >65y(94637) Diagnoses Encounter for routine adult physical exam with abnormal findings Z00. Screening PSA (prostate specific antigen) Z12. Additional Codes PHQ-9 - 42378 - PHQ-9 Billing: Yes ([id number]) BAIRON-7 Assessment Billing - BAIRON-7 Assessment Tool: BAIRON-7 Assessment 24505 ([id number]) Assessment & Plan Assessment & Plan (1) Encounter for routine adult physical exam with abnormal findings: Code(s): Z00. - Encounter for general adult medical examination with abnormal findings Category: Medical (2) Screening PSA (prostate specific antigen): Code(s): Z12.5 - Encounter for screening for malignant neoplasm of prostate Category: Medical Plan 6 months Orders: Orders Complete Blood Count Auto Diff Today Z00. - Encounter for general adult medical examination with abnormal findings Comprehensive [employer]. Panel Fast Today Z00.01 - Encounter for general adult medical examination with abnormal findings UA CC w/rflx Micro + Cult Today Z00.01 - Encounter for general adult medical examination with abnormal findings Lipid Panel Today Z00.01 - Encounter for general adult medical examination with abnormal findings TSH reflex Free T4 Today Z00.01 - Encounter for general adult medical examination with abnormal findings Prostate Specific Antigen Scr Today Z12.5 - Encounter for screening for malignant neoplasm of prostate Referrals Cologuard Test Z12.11 - Encounter for screening for malignant neoplasm of colon, Z12.12 - Encounter for screening for malignant neoplasm of rectum
== END 2025-05-02 08:47 | disposition home or self-care (01) ==
LOC: HO.HMCC 08:18
PROVIDERS: PCP Nurse Practitioner Family; Visit Provider Nurse Practitioner Family
DX: Z00.01 Encounter for general adult medical examination with abnormal findings (principal); Z12.5 Encounter for screening for malignant neoplasm of prostate

== ENCOUNTER → 2025-05-02 08:17 | Outpatient (BNVA) | payer BC, SELFPAY | PROVIDERS: PCP Nurse Practitioner Family; Visit Provider Nurse Practitioner Family | DX: Z00.01 Encounter for general adult medical examination with abnormal findings (principal); M54.16 Radiculopathy, lumbar region; F41.9 Anxiety disorder, unspecified; F32.A Depression, unspecified | CPT/HCPCS: 96127 ==

== ENCOUNTER 2025-05-03 09:48 | Outpatient (REF) | payer BC, SELFPAY ==
[2025-05-03 10:07] LABS: MANUAL DIFF FLAG NO
[2025-05-03 10:37] LABS: Hematocrit 37.2 % (42.0-52.0); Hemoglobin 13.0 g/dl (14.0-18.0); Imm Gran Abs Auto 0.01 X10*3/uL (0.00-0.03); Imm Gran Pct Auto 0.3 % (0.0-0.4); Lymphocytes Absolute Auto 1.0 X10*3/uL (1.2-4.9); Mean Corpuscular HGB Conc 34.9 g/dl (31.0-36.0); Mean Corpuscular Hemoglobin 31.3 pg (27.0-33.0); Mean Corpuscular Volume 89.4 fL (80.0-98.0); NRBC Abs Auto 0.000 X10*3/uL (0.0-0.012); NRBC Pct Auto 0.0 /100WBC (0.0-0.2); Platelet Count 171 X10*3/uL (160-400); Red Blood Count 4.16 X10*6/uL (4.60-5.80); White Blood Count 4.0 X10*3/uL (4.8-10.8)
[2025-05-03 11:05] LABS: Alanine Aminotransferase 40 U/L (0-40); Albumin Level 4.4 g/dL (3.5-5.0); Alkaline Phosphatase 85 U/L (39-117); Anion Gap 12 (12-20); Aspartate Amino Transferase 35 U/L (5-37); Blood Urea Nitrogen 24 mg/dL (9-16); Calcium 9.0 mg/dL (8.4-10.2); Carbon Dioxide 26 mmol/L (22-29); Chloride 107 mmol/L (96-108); Cholesterol 224 mg/dL (<200); Estimated Glomerular Filt Rate > 60; HDL Cholesterol 62 mg/dL (>40); Potassium 4.7 mmol/L (3.3-5.1); Sodium 140 mmol/L (135-145); Total Protein 6.7 g/dL (6.5-8.0); Triglycerides 68 mg/dL (<150)
[2025-05-03 13:55] LABS: Appearance Urine Clear; Glucose Urine UA Negative (Negative); PH 6.5 (5.0-9.0); Specific Gravity - Urine 1.015 (1.005-1.025)
== END 2025-05-03 09:49 | disposition home or self-care (01) ==
LOC: HO.LAB 09:48
PROVIDERS: PCP Nurse Practitioner Family; Visit Provider Nurse Practitioner Family
DX: Z00.01 Encounter for general adult medical examination with abnormal findings (principal); Z12.5 Encounter for screening for malignant neoplasm of prostate; Z13.6 Encounter for screening for cardiovascular disorders
CPT/HCPCS: 36415; 80053; 80061; 81003; 84153; 84443; 85025

== ENCOUNTER 2025-05-08 13:27 | Outpatient (REF) | payer BC, SELFPAY ==
[2025-05-08 13:41] LABS: MANUAL DIFF FLAG NO
[2025-05-08 15:35] LABS: Hematocrit 36.4 % (42.0-52.0); Hemoglobin 12.7 g/dl (14.0-18.0); Imm Gran Abs Auto 0.02 X10*3/uL (0.00-0.03); Imm Gran Pct Auto 0.3 % (0.0-0.4); Lymphocytes Absolute Auto 1.1 X10*3/uL (1.2-4.9); Mean Corpuscular HGB Conc 34.9 g/dl (31.0-36.0); Mean Corpuscular Hemoglobin 31.4 pg (27.0-33.0); Mean Corpuscular Volume 90.1 fL (80.0-98.0); NRBC Abs Auto 0.000 X10*3/uL (0.0-0.012); NRBC Pct Auto 0.0 /100WBC (0.0-0.2); Platelet Count 178 X10*3/uL (160-400); Red Blood Count 4.04 X10*6/uL (4.60-5.80); Reticulocytes Absolute 0.045 X10*6/uL (0.026-0.095); White Blood Count 5.9 X10*3/uL (4.8-10.8)
[2025-05-08 16:15] LABS: Iron 126 mcg/dL (45-160); Percent Iron Saturation 40 % (15-50); Total Iron Binding Capacity 314 mcg/dL (228-428); Unsaturated Iron Binding 188 ug/dL
[2025-05-08 16:33] LABS: Ferritin 273 ng/mL (20-250)
[2025-05-08 16:44] LABS: Folate 12.4 ng/mL (> or = 4.0); Vitamin B12 758 pg/mL (200-900)
== END 2025-05-08 13:28 | disposition home or self-care (01) ==
LOC: HO.LAB 13:27
PROVIDERS: PCP Nurse Practitioner Family; Visit Provider Nurse Practitioner Family
DX: D64.9 Anemia, unspecified (principal)
CPT/HCPCS: 36415; 82607; 82728; 82746; 83540; 83615; 85025; 85045

== ENCOUNTER 2025-05-18 10:20 | Day surgery (SDC) | payer BC, SELFPAY ==
[2025-05-12 10:28] VITALS: BP 145/76; PULSE 58; RESP 16; O2SAT 98; BMI 26.5
--- NOTE | 2025-05-12 10:43 | HO.ANESPROP2 ---
Documented by User: Cece Dent NP 05/12/25 10:55 HPI - Anesthesia Eval Consult details Narrative: 69yo M for Left L5 foraminotomy, 05/18/25 No recent illness No CP/SOB with martial arts 2 x weekly PMFSH Active Problems Active Problems: All Active Problems Elevated prostate specific antigen (PSA) (Acute) Dyslipidemia (Acute) Encounter for routine adult physical exam with abnormal findings (Acute) Vertebrogenic low back pain (Acute) Syncope (Acute) Mallet deformity of right ring finger (Acute) Muscle spasm (Acute) Elevated liver enzymes (Acute) Fatigue (Acute) Insomnia (Acute) Scalp lesion (Acute) Lumbar radiculopathy (Acute) Lumbar spondylosis (Acute) Osteoarthritis of first carpometacarpal joint of right hand (Acute) Bilateral primary osteoarthritis of knee (Acute) Long-term use of hydroxychloroquine (Acute) Lumbar spinal stenosis (Acute) Generalized osteoarthritis (Acute) Easy bruising (Acute) Leukopenia (Acute) Leukopenia (Acute) Skin change (Acute) Physical exam (Acute) Screening for colon cancer (Acute) Abnormal EMG (Acute) Hamstring tightness of right lower extremity (Acute) Thumb pain (Acute) Finger pain, right (Acute) Bilateral knee pain (Acute) Elevated fasting blood sugar (Acute) Muscle spasm of right leg (Acute) Swelling of right hand (Acute) Muscle ache (Acute) Cellulitis (Acute) Screening PSA (prostate specific antigen) (Acute) Raynauds disease (Acute) Recurrent major depression resistant to treatment (Acute) Arthralgia (Acute) Anemia (Acute) Past Medical History Medical History Marijuana use Back pain Depression Numbness Habitual snoring Fatty liver Recurrent major depression resistant to treatment Arthralgia Raynauds disease Anemia Arthritis Family History Family History Mother No problems noted. Father No problems noted. Family history of problems with anesthesia: No Surgical History Surgical History Hx of tooth extraction H/O colonoscopy History of insertion of nerve stimulator History of Problems with Anesthesia: No Social History Social History Household Members: Spouse Housing: House Alcohol intake: current Alcohol intake frequency: holidays/special occasions only Patient Tobacco Use Status: Never used Tobacco e-Cigarette/Vaping Use: Never Used Second Hand Smoke Exposure: No Use of substances other than those prescribed or required for medical reasons: No Substance Use Frequency: Daily Have you been hit, kicked, punched, or otherwise hurt by someone within the past year? 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 Cognitive needs: No Hearing needs: No Vision needs: No Meds Allergies Allergy/AdvReac Type Severity Reaction Status Date / Time No Known Allergies (No Known Allergy Verified 05/02/25 08:42 Allergies*) Home Medications ?Medication ?Instructions ?Recorded ?Confirmed ?Last Taken ?Type celecoxib 200 mg capsule (Celebrex) 200 mg PO BID 05/02/25 05/12/25 Unknown History acetaminophen 650 mg 650 mg PO Q12H PRN Pain 05/12/25 05/12/25 Unknown History tablet,extended release bfyycgnb-jl-raxkv 300 mcg-K 60 1 tab PO DAILY 05/12/25 05/12/25 Unknown History mcg-lycop 600 mcg-lutein 300 mcg tablet (Centrum Silver Men) Exam Height,Weight and Vital Signs: Height 5 ft 7 in Weight 76.657 kg Last Vital Signs Pulse 58 05/12/25 10:28 Resp 16 05/12/25 10:28 BP 145/76 H 05/12/25 10:28 Pulse Ox 98 05/12/25 10:28 O2 Del Method Room Air 05/12/25 10:28 Pertinent Lab Results Pertinent Lab Results: Laboratory Tests 05/03/25 05/08/25 10:05 13:40 WBC 5.9 Hgb 12.7 L Hct 36.4 L Plt Count 178 Sodium 140 Potassium 4.7 Chloride 107 Carbon Dioxide 26 BUN 24 H Creatinine 1.16 Narrative Narrative: ECHO 2022 Conclusions: - The left ventricular systolic function is normal. The visually estimated ejection fraction is between 65-70%. - There is mildly decreased right ventricular systolic function. - No obvious valvular pathology seen on this study. Airway Mallampati Class: II TM Dist: >3cm Neck ROM: Full Loose/Missing/Broken Teeth: Yes (side molars extracted, implant ~ #22, capped front teeth) Assessment and Plan Assessment Anesthesia Assessment: Anesthesia Plan Discussed and PAT Visit Final Anesthetic Review Family History of Problems with Anesthesia: No History of Problems with Anesthesia: No Documented by User: Nelli Scott MD 05/18/25 10:37 [facility] Past Medical History Medical History Marijuana use Back pain Depression Numbness Habitual snoring Fatty liver Recurrent major depression resistant to treatment Arthralgia Raynauds disease Anemia Arthritis Family History Family History Mother No problems noted. Father No problems noted. Surgical History Surgical History Hx of tooth extraction H/O colonoscopy History of insertion of nerve stimulator Social History Social History Household Members: Spouse Housing: House Alcohol intake: current Alcohol intake frequency: holidays/special occasions only Patient Tobacco Use Status: Never used Tobacco e-Cigarette/Vaping Use: Never Used Second Hand Smoke Exposure: No Use of substances other than those prescribed or required for medical reasons: No Substance Use Frequency: Daily Have you been hit, kicked, punched, or otherwise hurt by someone within the past year? 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 Cognitive needs: No Hearing needs: No Vision needs: No Meds Allergies Allergy/AdvReac Type Severity Reaction Status Date / Time No Known Allergies (No Known Allergy Verified 05/02/25 08:42 Allergies*) Home Medications ?Medication ?Instructions ?Recorded ?Confirmed ?Last Taken ?Type celecoxib 200 mg capsule (Celebrex) 200 mg PO BID 05/02/25 05/12/25 Unknown History acetaminophen 650 mg 650 mg PO Q12H PRN Pain 05/12/25 05/12/25 Unknown History tablet,extended release vevnxyrw-qb-xahnu 300 mcg-K 60 1 tab PO DAILY 05/12/25 05/12/25 Unknown History mcg-lycop 600 mcg-lutein 300 mcg tablet (Centrum Silver Men) Exam Airway Heart: rrr Lungs: cta Assessment and Plan Final Anesthetic Review NPO: Yes ASA Class: III Final Preanesthetic Review: No Changes in Pt Med Stat, Meds/Allgs Chart Reviewed, Consent Obtained/Reviewed and Anes Risks/Benef Reviewed Patient Risk: Intermediate Procedure Risk: Intermediate Anesthetic Plan Anesthetic Plan: GA Disposition: Standard PACU
[2025-05-18] VITALS (9 sets, daily range): BP systolic 132–160; BP diastolic 61–96; PULSE 60–85; RESP 12–16; TEMP 36.1–36.4; O2SAT 95–100
--- NOTE | ~2025-05-18 | FL_ITS ---
EXAMINATION: FL GUIDANCE ONLY HISTORY: L5 foraminotomy bilateral COMPARISON: None available. TECHNIQUE: Fluoroscopy time: Less than 1 minute. Cumulative Dose: 4.85 mGy. DAP: 0.795 mGym2 Images: 1. FINDINGS: A single fluoroscopic spot film of the lumbar spine in the lateral projection demonstrates a probe directed toward the L5 vertebral body from a posterior approach. FL/FL guidance in OR IMPRESSION: Fluoroscopy during procedure. Please see procedure report for additional information. Electronically signed by: Ant Darnell MD 05/18/2025 02:25 PM EDT
[2025-05-18] MEDS: Lactated Ringers 1,000 ML 100 ML IVCONT (11:14)
--- NOTE | 2025-05-18 11:17 | MHC.SHP ---
Pre-Procedural Eval Section A - 24 Hr Update-Section A only Date of Service: 05/18/25 The patient is an INPATIENT: No Section B - Complete if H&P > 30 days Chief Complaint: Radiculopathy, lumbar region Details of Present Illness: Bilateral leg pain Allergies: Allergies Allergy/AdvReac Type Severity Reaction Status Date / Time No Known Allergies (No Known Allergy Verified 05/02/25 08:42 Allergies*) Review of Systems Sugical H&P ROS: Negative: Constitution, Cardiovascular, Respiratory, Neurological, Psychiatric, Hem-Onc, Allergic/Immunologic, Gastrointestinal, Genitourinary, Musculoskeletal, Integumentary, Endocrine and Eyes/Ears/Nose/Throat Exam Surgical H&P Exam: Normal: HEENT, Normal: Heart, Normal: Lungs, Normal: Extremities, Normal: Abdomen, Normal: Skin and Normal: Neurological (Wake, alert) Plan Diagnosis/Plan: Unchanged I have reviewed the history and physical and performed a pertinent physical examination on my patient. No changes have occurred unless specified. Bilateral L5 foraminotomy Time Spent With Patient Time: Total time managing care of this patient today _5___ minutes.
--- NOTE | 2025-05-18 14:06 | P.OP_ITS ---
Operative Note Operative Note Date of Service: 05/18/25 Narrative: Preoperative Diagnosis: Bilateral L5 radiculopathy due to Neuroforaminal stenosis Operation: Bilateral L5 Laminotomy, Partial facetectomy and foraminotomy with use of microscope Consent Informed Consent was obtained for this operation. I have explained the nature, purpose and benefits of the operation. I have discussed the risks and benefit of the operation including possible complications or adverse events with pa tient/family. Alternative(s) were discussed with the patient with their relative benefits and risks as well as the consequences of not accepting the operation were included in obtaining consent. Surgeon: TRENT JOHNSON MD, PHD Procedure Assisted By: Eduardo Jeffries PA-C Description of Procedure This patient is suffering from bilateral L5 radiculopathy, right more affected than the left side. The MRI shows bilateral L5 foraminal stenosis with the right side is more affected than the left side. The patient was offered a decompression of the nervous structures. The procedure complications were explained. The patient was consented. The patient was brought to the operating room and endotracheally intubated. The patient was turned in prone position on the Brian frame. Prep and drape was done followed by timeout. Physician medical staff assistant provided access. A mid lumbar incision was made followed by release of the paravertebral muscle bilaterally to expose the L5 lamina and facet joint bilaterally. An intraoperative x-ray was obtained to confirm the correct level. The microscope was brought in. I took over the procedure. The high-speed drill was used to do a right L5 laminotomy. #2 Kerrison was used to further remove the lamina towards the L5 foramen. With a nerve hook the medial wall of the L5 pedicle was palpated as well as the beginning of the L5 foramen. The facet joint was partially drilled down after which with a #2 Kerrison a foraminotomy was done. Finally a foraminotomy Kerrison was used to complete the foraminotomy. A long nerve hook could be easily passed lateral and dorsally from the nerve root, a sign of relief of the neuroforaminal stenosis and decompression of the nerve root. Then the same procedure was repeated for the left side. A left L5 laminotomy was done. The origin of the L5 nerve root was seen followed into the foramen. The medial wall of the L5 pedicle was palpated. The facet joint was partially drilled down with a 2. Kerrison the foraminotomy was completed. The microscope was removed. Hemostasis was done. Incision was closed in 2 layers. Steri-Strips were used to approximate incision. An OpSite with Tegaderm was used to cover the incision. All sponge needle counts were correct. Patient was extubated and transported in stable is to recovery room. Anesthesia: General Estimated Blood Loss (ml): Minimal Duration of Surgery: Under 60 Minutes Postoperative Plan: Discharge to home
--- NOTE | 2025-05-18 14:15 | PM.DS ---
DS: Providers Provider Date of Service: 05/18/25 Date of discharge: 05/18/25 Primary care physician: ALEN Mazariegos DS: Summary Time Attestation Discharge Coordination Time (in mins): 12 Quality: Safe Use of Opioids Does Pt have an Active Cancer Diagnosis on the Problem List?: No Quality: Stroke Does the patient have a stroke diagnosis?: No Physical Exam Vital Signs: Vital Signs: Last Vital Signs Temp 97.5 F 05/18/25 11:14 Pulse 73 05/18/25 11:14 Resp 16 05/18/25 11:14 BP 160/90 H 05/18/25 11:14 Pulse Ox 99 05/18/25 11:14 O2 Del Method Room Air 05/18/25 11:14 BMI result Body Mass Index 26.5 Discharge Plan Discharge Patient Disposition: Home, Self-Care Referrals: Ha Bermudez FNP-BC [Primary Care Provider, Internal Medicine] - 1 Week Discharge Medications: New oxycodone 5 mg tablet 5 mg PO Q6H PRN (Reason: pain) Qty: 20 0RF Rx Instructions: Partial Fill upon patient request. Continued methocarbamol 750 mg tablet 750 mg PO Q8H PRN (Reason: muscle spasm) 30 Days Qty: 60 1RF atorvastatin [Lipitor] 10 mg tablet 10 mg PO BEDTIME Qty: 30 3RF acetaminophen 650 mg Tablet Extended Release 650 mg PO Q12H PRN (Reason: Pain) Centrum Silver Men [phone] mcg Tablet 1 tab PO DAILY Held celecoxib [Celebrex] 200 mg capsule 200 mg PO BID Hold Instructions: Resume on 05/19/25. Discharge Orders: Discharge Order (Routine); Ordered 05/18/25 Ordered By: Eduardo Jeffries Diet: Advance to usual diet Activity on Discharge: As tolerated Activity Restrictions/Additional Instructions: After your spinal surgery we ask you to observe the following restrictions/guidelines: Activity: It is normal to feel some discomfort as you increase your activity, but that will improve with time. We ask you avoid heavy lifting or acitivities that cause pain. As a general rule, 8lbs is a safe limit for lifting right after surgery. Walk as much as you feel comfortable but not to exhaustion. You will feel extra tired the first few days after surgery. Stay well hydrated. It is OK to walk up and down stairs You may return to driving when you are off narcotics (such as vicodin, oxycodone, dilaudid, etc), and you are back to normal functional capacity. If you have any concerns please check with office before driving. Return to work is specific to each patient and each surgery, so please speak with your doctor/PA at first follow up. Please bring paperwork such as FMLA at that time if you need it filled out. Medications: For optimum pain control, it is best to start with a combination of 500 mg of Tylenol every 4 hours with 600 mg of Motrin every 8 hours, and use narcotics as needed in between for breakthrough pain. We will give you a short supply of narcotics after surgery (usually one weeks worth). If you need more please call the office but do not use more than prescribed. You will need to give our office 48 hours notice if you need narcotics refilled and we do not fill narcotics on weekends or evenings. If you are on a narcotic, it is a good idea to take a stool softener such as colace or senna to avoid constipation If you take blood thinner such as aspirin, Plavix, Coumadin, Effient, Eliquis etc for conditions such as Afib, DVT, Pulmonary embolus, coronary disease, stents etc please speak with your surgeon about specific details as to when you can resume these medications. You can resume NSAIDs on post op day 1 (eg: Motrin, Naproxen, etc). Follow up: Please call the office, , after surgery to arrange a 3 week follow up for wound check. Wound Care: You may remove your dressing on the first day after surgery. ?You may ?leave open to air. Please do not remove the steri strips underneath. they will fall off on their own in one week. IT IS NORMAL FOR THE WOUND TO OOZE OR BE BLOODY FOR A FEW DAYS AFTER SURGERY. ?IF THIS HAPPENS JUST PLACE NEW DRESSING OVER IT TO AVOID STAINING CLOTHES. You may shower on post op day # 1 We ask that you do not let the water soak the wound. If it does get wet, just towel dry lightly. Please do not scrub your incision or place any type of chemical/ointment on the wound. No tub baths, pools or jacuzzis for one month. If you have any leaking or redness from your wound, or fevers, please call office Print Language: Vietnamese
== END 2025-05-18 15:54 | disposition home or self-care (01) ==
PROVIDERS: PCP Nurse Practitioner Family; Visit Provider Neurological Surgery
PROC: (CPT 63047; principal; 2025-05-18 12:50)
DX: M54.16 Radiculopathy, lumbar region (principal); M48.062 Spinal stenosis, lumbar region with neurogenic claudication; G89.29 Other chronic pain; M54.50 Low back pain, unspecified; M17.0 Bilateral primary osteoarthritis of knee; M79.604 Pain in right leg; D64.9 Anemia, unspecified; F33.2 Major depressive disorder, recurrent severe without psychotic features; I73.00 Raynaud's syndrome without gangrene; G47.00 Insomnia, unspecified; Z79.1 Long term (current) use of non-steroidal anti-inflammatories (NSAID); Z79.899 Other long term (current) drug therapy
CPT/HCPCS: 63047; J0131; J0690; J1100; J1630; J2003; J2405; J2704; J3010

== ENCOUNTER → 2025-05-18 10:20 | Outpatient (BNV) | payer BC, SELFPAY | PROVIDERS: PCP Nurse Practitioner Family; Visit Provider Neurological Surgery | DX: M48.062 Spinal stenosis, lumbar region with neurogenic claudication (principal) | CPT/HCPCS: 63047; 99499 ==

== ENCOUNTER 2025-06-07 14:47 | Outpatient (AMB) | payer BC, SELFPAY ==
--- NOTE | 2025-06-07 14:57 | A.SPINEOV_ITS ---
Intake Visit Reasons: 1st post op Intake Note: Mr. Duque is here today for his 1st post-op visit. Allergies No Known Allergies (No Known Allergies*) Allergy (Verified 05/02/25 08:42) Assessment & Plan Assessment & Plan (1) Status post lumbar spine surgery for decompression of spinal cord: Code(s): Z98.890 - Other specified postprocedural states Category: Medical Plan Operation: Bilateral L5 Laminotomy Hero is a pleasant 69-year-old male who comes in today for his 1st postoperative visit after having a bilateral L5 foraminotomy completed by Dr. Littlejohn. He reports that he is overall very satisfied with the surgery, and states that about 85-90% of his pain has been completely relieved from the surgery. He has been walking around outside, around the home, completing ADLs without significant issue. He states that he has not been taking the pain medication use prescribed after surgery as he does not need it. No new neurological deficits. The patient ambulates well and rises from a seated position without difficulty. He uses no assistive devices to ambulate. His posterior incision site is closed and well healing. At the conclusion of this visit Hero asked for a return to work letter for his part-time job working 8-10 hours per week at [employer]. 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 He states that his job is willing to have someone else carry the boxes full of books out so that he can organize them. I provided him with a letter to return to this job. I would like to follow up with him again in 6 weeks for his 2nd postop visit. Eduardo Littlejohn MD,PhD [facility] Coding Level of Care Code Global (90916) Diagnoses Status post lumbar spine surgery for decompression of spinal cord Z98.890
== END 2025-06-07 15:26 | disposition home or self-care (01) ==
LOC: HO.HNS 14:48
PROVIDERS: PCP Nurse Practitioner Family; Visit Provider Physician Assistant
DX: Z98.890 Other specified postprocedural states (principal)
CPT/HCPCS: 99024

== ENCOUNTER 2025-07-01 09:24 | Outpatient (REF) | payer BC, SELFPAY ==
[2025-07-01 10:33] LABS: Alanine Aminotransferase 39 U/L (0-40); Albumin Level 4.3 g/dL (3.5-5.0); Alkaline Phosphatase 96 U/L (39-117); Anion Gap 12 (12-20); Aspartate Amino Transferase 36 U/L (5-37); Blood Urea Nitrogen 24 mg/dL (9-16); Calcium 9.0 mg/dL (8.4-10.2); Carbon Dioxide 28 mmol/L (22-29); Chloride 108 mmol/L (96-108); Cholesterol 139 mg/dL (<200); Estimated Glomerular Filt Rate > 60; HDL Cholesterol 53 mg/dL (>40); Potassium 4.7 mmol/L (3.3-5.1); Sodium 143 mmol/L (135-145); Total Protein 6.7 g/dL (6.5-8.0); Triglycerides 44 mg/dL (<150)
== END 2025-07-01 09:25 | disposition home or self-care (01) ==
LOC: HO.LAB 09:24
PROVIDERS: PCP Nurse Practitioner Family; Visit Provider Nurse Practitioner Family
DX: E78.5 Hyperlipidemia, unspecified (principal)
CPT/HCPCS: 36415; 80053; 80061

== ENCOUNTER 2025-07-05 13:02 | Outpatient (REF) | payer BC, SELFPAY ==
--- NOTE | ~2025-07-05 | XR_ITS ---
Exam: Five-view or spine x-ray TECHNIQUE: AP, lateral spot and lateral: Flexion, neutral, and extension view x-rays of the lumbar spine. INDICATION: M48.061 - Spinal stenosis, lumbar region without neurogenic claudication Prior: January 19, 2025 FINDINGS: Bowel gas pattern is unremarkable. Phleboliths project in the lower pelvis, right greater than left. There are 5 non-rib bearing lumbar segments. Vertebral body height and alignment is preserved. Multilevel degenerative changes are noted with mild to moderate disc space narrowing and endplate osteophytes most advanced at L1-2 and L5-S1. Facet sclerosis is present at L4-5 and L5-S1. Overall, degenerative changes are stable. During flexion and extension, there is no sign of instability. XR/XR lumbar spine 4V min IMPRESSION: Stable multilevel degenerative disc disease and facet osteoarthritis without evidence of instability during flexion and extension. Electronically signed by: Cameron Tran MD 07/05/2025 01:59 PM EDT
[2025-07-05 13:14] LABS: MANUAL DIFF FLAG NO
[2025-07-05 13:34] LABS: Hematocrit 36.8 % (42.0-52.0); Hemoglobin 12.8 g/dl (14.0-18.0); Imm Gran Abs Auto 0.01 X10*3/uL (0.00-0.03); Imm Gran Pct Auto 0.2 % (0.0-0.4); Lymphocytes Absolute Auto 1.0 X10*3/uL (1.2-4.9); Mean Corpuscular HGB Conc 34.8 g/dl (31.0-36.0); Mean Corpuscular Hemoglobin 31.1 pg (27.0-33.0); Mean Corpuscular Volume 89.3 fL (80.0-98.0); NRBC Abs Auto 0.000 X10*3/uL (0.0-0.012); NRBC Pct Auto 0.0 /100WBC (0.0-0.2); Platelet Count 181 X10*3/uL (160-400); Red Blood Count 4.12 X10*6/uL (4.60-5.80); White Blood Count 5.5 X10*3/uL (4.8-10.8)
== END 2025-07-05 13:03 | disposition home or self-care (01) ==
LOC: HO.XRAY 13:02
PROVIDERS: Absent Provider Physician Assistant; PCP Nurse Practitioner Family; Visit Provider Nurse Practitioner Family
DX: M48.061 Spinal stenosis, lumbar region without neurogenic claudication (principal); D64.9 Anemia, unspecified
CPT/HCPCS: 36415; 72110; 85025

== ENCOUNTER → 2025-07-05 13:12 | Outpatient (BNV) | payer BC, SELFPAY | PROVIDERS: Absent Provider Physician Assistant; PCP Nurse Practitioner Family; Visit Provider Radiology Diagnostic Radiology | DX: M51.369 Other intervertebral disc degeneration, lumbar region without mention of lumbar back pain or lower extremity pain (principal) | CPT/HCPCS: 72110 ==

== ENCOUNTER 2025-07-07 09:02 | Outpatient (REF) | payer BC, SELFPAY ==
--- NOTE | ~2025-07-07 | CT_ITS ---
EXAMINATION: CT LUMBAR SPINE WITHOUT CONTRAST CLINICAL INFORMATION: M 48.061. Spinal stenosis, lumbar region without neurogenic. COMPARISON: April 06, 2025. TECHNIQUE: Contiguous axial images through the lumbar spine using 2 mm collimation with bone and soft tissue algorithm. Sagittal and coronal reformatted images acquired on a soft tissue algorithm. Total DLP: [address] examination was performed using dose optimization techniques as appropriate, variously including the following: *Automated exposure control *Adjustment of mA and/or kV according to patient size (this includes techniques or standardized protocols for targeted exams where dose is matched to indication/reason for exam; i.e. extremities or head) *Use of iterative reconstruction technique FINDINGS: Last rib-bearing vertebra labeled T12. There is a large syndesmophyte formation/marginal osteophyte formation to the right of L5-S1. Multilevel marginal osteophyte formation at L1 to, L2-3 levels. Decreased intervertebral disc height and endplate sclerosis and small subchondral cyst formation at L5-S1. Similar findings to a lesser extent and L1-2 and L2-3 level. Grade 1 retrolisthesis, L1 to, L2-3 levels. Chondrocalcinosis at the intervertebral disc T12-L1, L3-4, L4-5 L4-5 and likely L5-S1. T12-L1: Facet joint hypertrophy. No gross central spinal canal or neuroforamina stenosis. L1-2: Broad-based disc bulging. Facet joint and ligamentum flavum hypertrophy. Reduced AP diameter of the thecal sac and neuroforamina. L2-3: Right-sided broad-based disc bulging extending foraminal and extraforaminal and facet joint hypertrophy as well as ligamentum flavum resulting in reduced AP diameter of the thecal sac and bilateral neuroforamina stenosis. L3-4: Broad-based disc bulging. Facet joint and ligamentum flavum hypertrophy. Central spinal canal and bilateral neuroforamina stenosis likely compressing the neural elements of the thecal sac and the exiting nerve roots, right greater than left side. L4-5: Broad-based disc bulging. Facet joint and ligamentum flavum hypertrophy resulting in central spinal canal stenosis and right neuroforamina stenosis likely compressing the neural elements. L5-S1: Broad-based disc bulging. Facet joint hypertrophy resulting in bilateral neuroforamina stenosis and to a lesser extent central spinal canal stenosis. No prevertebral compartment hematoma, mass or fluid collection. There is a 3.7 cm exophytic fluid density lesion in the posterior midportion of the right kidney. No hydronephrosis or nephrolithiasis in either kidney. No nodular lesions in the adrenal glands. Abdominal aorta demonstrates normal diameter. No gross lymphadenopathy in the retroperitoneum, nonspecific prominent lymph nodes are present. CT/CT lumbar spine wo IV con IMPRESSION: Multilevel lumbar spondylosis from L1-2 to L5-S1 resulting in central spinal canal and bilateral neuroforamina stenosis at L3-4, L4-5 and to a lesser extent L2-3 and L1-2 and L5-S1 levels. Consider CPPD. 3.7 cm exophytic cyst, right kidney. Electronically signed by: Don Levine MD 07/07/2025 09:47 AM EDT
== END 2025-07-07 09:03 | disposition home or self-care (01) ==
LOC: HO.CT 09:02
PROVIDERS: PCP Nurse Practitioner Family; Visit Provider Physician Assistant
DX: M48.061 Spinal stenosis, lumbar region without neurogenic claudication (principal)
CPT/HCPCS: 72131

== ENCOUNTER → 2025-07-07 09:04 | Outpatient (BNV) | payer BC, SELFPAY | PROVIDERS: PCP Nurse Practitioner Family; Visit Provider Radiology Diagnostic Radiology | DX: M48.061 Spinal stenosis, lumbar region without neurogenic claudication (principal); M47.816 Spondylosis without myelopathy or radiculopathy, lumbar region | CPT/HCPCS: 72131 ==

== ENCOUNTER 2025-07-07 14:54 | Outpatient (AMB) | payer BC, SELFPAY ==
--- NOTE | 2025-07-07 14:55 | MHC.OFFVIS ---
Intake Visit Reasons: elevated PSA Intake Note: New Patient is present for elevated PSA Urology Rx:none Blood Thinners:none Imaging completed: none Labs done 05/03/25 : PSA 4.87 Salon Assistant Required: No Accompanied by: Self / Same As Patient Allergies No Known Allergies (No Known Allergies*) Allergy (Verified 07/07/25 14:57) HPI Comments Details: Hero is a pleasant male. He is a patient of Dr. Allen He is seen for the following urologic conditions - elevated PSA Elevated PSA He presents for - initial evaluation of elevated PSA Lower Urinary Tract Symptoms include - minimal - effective stream greater than 24 in Investigations include - PSA - 09/23 2.8, 05/26 4.9 - KALYANI 2+ prostate - a transrectal ultrasound no Associated conditions include none Therapeutic plan will be - repeat PSA in six-month with bladder to confirm enlarged prostate PFSH Medical History Marijuana use Back pain Depression Numbness Habitual snoring Fatty liver Recurrent major depression resistant to treatment Arthralgia Raynauds disease Anemia Arthritis Surgical History Hx of tooth extraction H/O colonoscopy History of insertion of nerve stimulator Family History Mother No problems noted. Father No problems noted. 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 Cognitive needs: No Hearing needs: No Vision needs: No Review of Systems Const Denies chills and Denies fever(s) Card Reports no additional complaints and Denies syncope Resp Denies cough GI Denies abdominal pain and Denies heartburn Reports as per HPI and Denies change in libido Neuro Denies syncope Psych Denies change in libido Endo Denies change in libido Physical Exam Const General: cooperative, healthy appearing, comfortable and no acute distress Orientation/consciousness: patient oriented x3 HEENT Face and sinus: Yes normal facial exam Mouth: moist mucous membranes Neck Neck: Yes normal visual inspection, Yes full ROM and Yes trachea midline Chest Chest palpation & inspection: normal inspection of the chest Resp Effort & Inspection: normal respiratory effort, able to speak in complete sentences and no respiratory distress GI Inspection: Yes normal to inspection Rectal Exam - Male: Yes normal sphincter tone and Yes prostate normal Male General Exam: Yes normal external exam Penis: normal penis and circumcised Meatus: meatus normal Scrotum: scrotum normal Testes: Testes normal Back/Spine/Pelvis Cervical Spine: normal cervical lordosis Thoracic/Lumbar Spine: thoracic and lumbar spine normal to inspection Skin General skin exam: no rashes or lesions noted Neuro General: patient oriented x3, gait normal, tone normal and moves all extremities Extrem General: Yes normal to inspection and Yes capillary refill normal Assessment & Plan Assessment & Plan (1) Elevated prostate specific antigen (PSA): Code(s): R97.20 - Elevated prostate specific antigen [PSA] Category: Medical Plan Repeat PSA in six-month Orders: Orders US bladder 6 Months R97.20 - Elevated prostate specific antigen [PSA] PSA,Total (Free>4and<10) 6 Months R97.20 - Elevated prostate specific antigen [PSA] Patient Instructions: This note is constructed using voice recognition software. While every effort has been made to ensure accuracy district service manager errors may have been included. Imaging studies, laboratory and physical exam results were discussed and reviewed in detail. No major barriers to patient understanding were identified. An opportunity to ask questions regarding the treatment plan was provided. All questions were answered. The patient expressed understanding and agreement with the above treatment plan. The patient is aware they should contact our office by phone for worsening of their current condition or the appearance of new urologic symptoms. Compliance is encouraged with any medications and followup testing that is ordered. It is a privilege to participate in the urologic care of your patient. If you have any questions or concerns regarding treatment for the above conditions, or other urologic issues, please do not hesitate to contact me. The office telephone contact is [phone]. Sincerely, Dr Korey Munoz MD, [facility] - Urology Compassionate Specialist Care for the Genitourinary System Coding Level of Care Code New Pt Level 3 (25495) Diagnoses Elevated prostate specific antigen (PSA) R97.20
== END 2025-07-07 16:12 | disposition home or self-care (01) ==
LOC: HO.HUSH 14:55
PROVIDERS: PCP Nurse Practitioner Family; Visit Provider Urology
DX: R97.20 Elevated prostate specific antigen [PSA] (principal)
CPT/HCPCS: 99203

== ENCOUNTER 2025-07-10 09:42 | Outpatient (AMB) | payer BC, SELFPAY ==
--- NOTE | 2025-07-10 09:46 | HO.SPINEOV ---
Intake Visit Reasons: 2nd post/ back & R leg pain Intake Note: Mr. Duque is here today for his 2nd post op. Ornamental Bronze Worker Required: No Allergies No Known Allergies (No Known Allergies*) Allergy (Verified 07/07/25 14:57) Assessment & Plan Assessment & Plan (1) Lumbar radiculopathy: Code(s): M54.16 - Radiculopathy, lumbar region Category: Medical Plan Operation: Bilateral L5 Laminotomy Hero is a pleasant 69-year-old male who comes in today for his 2nd postoperative visit after having a bilateral L5 foraminotomy completed by Dr. Littlejohn. To recap he previously reported very good pain relief overall after his operation. Pre-operatively he presented to clinic with bilateral leg pain, right worse than left. He most recently called our clinic last week to discuss a recurrence of his pre-operative pain. He had X-rays and CT scan ordered to evaluate for foraminal compression. His imaging was reviewed during this visit which does show some continued osteophyte intrusion near the foramen primarily on the right-hand side, and re-demonstrated anterior autofusion L5-S1. He has been utilizing the pain medication that she had from his surgery as he did not need any in the immediate postoperative period. 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 He has also been completing yard work at his home. His accompanied him to this visit today who also help provide some his history. She reports that his activity seems to have increased quite significantly. She raised concerns regarding this. We discussed the postoperative healing course at great length and I answered all questions that the both of them had. No new neurological deficits. The patient ambulates well and rises from a seated position without difficulty. He uses no assistive devices to ambulate. His posterior incision site is closed and well healing. I would like the patient to try and decrease activity for the next few weeks and follow up with Dr. Littlejohn in clinic thereafter for subsequent evaluation. It is possible that he may end up needing unilateral posterior instrumentation to keep the foramen open if his symptoms do not improve before his next visit. Ultimately this vs. osteophytectomy vs. tincture of time will need to be determined by my attending neurosurgeon Dr. Littlejohn during re-evaluation. Eduardo Littlejohn MD,PhD [facility] Coding Level of Care Code Global (74262) Diagnoses Lumbar radiculopathy M54.16
== END 2025-07-10 11:23 | disposition home or self-care (01) ==
LOC: HO.HNS 09:43
PROVIDERS: PCP Nurse Practitioner Family; Visit Provider Physician Assistant
DX: M54.16 Radiculopathy, lumbar region (principal)
CPT/HCPCS: 99024

== ENCOUNTER 2025-08-09 13:32 | Outpatient (AMB) | payer BC, SELFPAY ==
--- NOTE | 2025-08-09 13:55 | A.SPINEOV_ITS ---
Intake Visit Reasons: 1 month f/u and Evaluation Intake Note: Mr. Duque is here today for his 1 month F/u and re-evaluation. Straightener And Aligner Required: No Allergies No Known Allergies (No Known Allergies*) Allergy (Verified 07/07/25 14:57) Assessment & Plan Assessment & Plan (1) Status post lumbar spine surgery for decompression of spinal cord: Code(s): Z98.890 - Other specified postprocedural states Category: Surgical Plan Dear colleague, On 08/09/2025, I saw for follow-up Hero Duque. He underwent a bilateral L5 foraminotomy in May. Initially, the symptoms disappeared but then they seemed to return and now he is better again but still has on and off complaints. Sometimes the complaints are so severe that he needs a prescription drug. 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 On exam, there are no objective abnormalities. I hope that in the near future the symptoms will further improve. We briefly discussed that there is some ongoing moderate L5 foraminal stenosis bilaterally. He will return in 3 months. Thank you for allowing me take care of your patient. Jesus Littlejohn MD, PhD Spine Fellowship Trained Neurosurgeon Director, [facility] [place] [facility] Coding Level of Care Code Global (43551) Diagnoses Status post lumbar spine surgery for decompression of spinal cord Z98.890
== END 2025-08-09 14:57 | disposition home or self-care (01) ==
LOC: HO.HNS 13:32
PROVIDERS: PCP Nurse Practitioner Family; Visit Provider Neurological Surgery
DX: Z98.890 Other specified postprocedural states (principal)
CPT/HCPCS: 99024

== ENCOUNTER 2025-10-20 14:25 | Outpatient (AMB) | payer BC, SELFPAY ==
--- NOTE | 2025-10-20 14:27 | HO.SPINEOV ---
Intake Visit Reasons: LBP Intake Note: Mr. Duque is here today c/o low back pain. [employer] Required: No Allergies No Known Allergies (No Known Allergies*) Allergy (Verified 07/07/25 14:57) Assessment & Plan Assessment & Plan (1) Status post lumbar spine surgery for decompression of spinal cord: Code(s): Z98.890 - Other specified postprocedural states Category: Medical Plan Mr Duque is 5 months out from his right L5 foraminotomy. He still continues to have persistent low back pain across his whole lower lumbar sacral area. He has much less right leg pain than he had before surgery and he is happy that he went through the surgery. He localizes the pain to about 2-3 inches below where the incision is. I suspect this is the upper sacral the mid sacral area. It will shoot down the leg if he is standing for too long but not nearly as bad as it was before surgery. The primary symptom here is the back pain. I went back and looked at his CT again done at [facility]. He has auto fusion of L5-S1 with a severely collapsed disc. I do not see any residual compression in the foramen. I am not sure how to explain his back pain. The surgical solution for back pain is typically fusion, but his body has already auto fused the degenerative segment. I gave him a referral to PT and told him to work on this for few months and see if he could get some of it to improve. He is going to follow up with Dr. Littlejohn a few months after that to be re-evaluated. He was asking for prescription for oxycodone just on the occasion with the pain gets really bad, but I told him we do not continue to prescribe narcotics more than a few weeks out from surgery. Total amount of time spent in this visit was 20 minutes in discussion of symptoms, lumbar CT done at [facility] imaging results and subsequent plan of care Quincy Littlejohn MD,PhD [facility] Orders: Orders PT Evaluation and Treatment Today Z98.890 - Other specified postprocedural states Coding Level of Care Code Est Pt Level 3 (46885) Diagnoses Status post lumbar spine surgery for decompression of spinal cord Z98.890
== END 2025-10-20 14:58 | disposition home or self-care (01) ==
LOC: HO.HNS 14:25
PROVIDERS: PCP Nurse Practitioner Family; Visit Provider Physician Assistant
DX: Z98.890 Other specified postprocedural states (principal)
CPT/HCPCS: 99213